=== PATIENT | male | born 1975 | race Caucasian/White ===

== ENCOUNTER → 2021-02-04 13:53 | Outpatient (CLI) | payer BC, SELFPAY ==
--- NOTE | 2021-02-04 | DI.MRI_ITS ---
Exam(s) MR LOWER EXTREMITY LT WO/W CLINICAL HISTORY: DIABETIC ULCER LT 1ST MCP,TRACTS TO BONE,?OSTEOMYELITIS. TECHNIQUE: Multiplanar multisequence MRI was performed. CONTRAST MATERIAL: IV Contrast: 20 mL of Dotarem contrast administered. COMPARISON: None. FINDINGS: There is a visible soft tissue ulcer seen at the plantar soft tissues at the level of the 1st proxima l phalanx. There is soft tissue enhancement but no abnormal enhancement within the marrow. There is no drainable collection. The adjacent tendons appear normal. There is an artifact in the soft tiss ues of the plantar aspect of the foot at the level of the 4th proximal phalanx with which may be a me tallic foreign body. IMPRESSION: Plantar soft tissue ulceration. No evidence of osteomyelitis or abscess. DATA REPOSITORY:
[2021-02-04 15:11] LABS: BUN 19 mg/dL (7-18); CREATININE 1.2 mg/dL (0.70-1.30)
[2021-02-04] MEDS: Normal Saline Flush 10 ML SYR IVP (15:53)
[2021-02-04] MEDS: Gadoterate meglumine 20 ML VIAL IVP (15:54)
== END ==
PROVIDERS: PCP Internal Medicine; Visit Provider Podiatrist
DX: E11.622 Type 2 diabetes mellitus with other skin ulcer (principal); L97.401 Non-pressure chronic ulcer of unspecified heel and midfoot limited to breakdown of skin
CPT/HCPCS: 84520; 73720; 82565

== ENCOUNTER 2021-05-12 00:59 | Outpatient (CLI) | payer BC, SELFPAY ==
[2021-05-12 11:11] LABS: Source Nasal/Nares
[2021-05-12 14:15] LABS: COVID-19 PCR Negative (Negative)
== END 2021-05-12 01:00 | disposition home or self-care (01) ==
LOC: LBO 01:00
PROVIDERS: PCP Internal Medicine; Visit Provider Podiatrist
DX: Z20.822 Contact with and (suspected) exposure to COVID-19 (principal)
CPT/HCPCS: 87635

== ENCOUNTER 2021-05-15 10:00 | Day surgery (SDC) | payer BC, SELFPAY ==
--- NOTE | 2021-05-14 20:05 | HPE_ITS ---
Date of service: 05/15/21 Time of Service: 20:05 History of Present Illness History of Present Illness Chief Complaint: Diabetic ulcer left foot, hallux limitus Narrative: 45 YO male with an ulceration under the left proximal phalageal base of over 9 months duration that has not responded to palliative care for surgical intrvention. Ze is in NAD Heads normo cephalic eyes Perlla hearing adequate Uvula is midline Heart had RRR, no gallops, rubs or murmurs noted Lung gudino are clear Abdomen is soft Peripheral pulses are palpable Diabetic ulcer noted under the left 1st MPJ region, partial thickness Diabetic neuropathy noted Plan: Ze is being brought to the OR for resection of bone/ Pryor type bunion procedure and wound debridement. Risks and complications have been discussed in detail and the potential for pain, scarring, infection, nerve injury, failure of the wound to close requiring additional procedures was discussed. All questions were answered in detail. Informed consent obtained. [facility] Medical History (Updated 05/13/21 @ 13:33 by Roman Greenberg) Cardiomyopathy F/U with Dr. Melvin 12/24/20 Diabetes mellitus Gout HTN (hypertension) Surgical History H/O adenoidectomy Hx of circumcision 05/13/21 Social History Smoking/Tobacco Use Status: Former Tobacco Use Quit Date: 06/06/02 Smoking risk assessment performed?: Yes Alcohol Intake: current Alcohol Intake frequency: a few times a week Alcohol type: beer Drug use: Current Sobriety Substance use type: does not use Additional Social history: unable to assess [facility] Allergies and Home Medications Allergies Allergy/AdvReac Type Severity Reaction Status Date / Time No Known Allergies Allergy Unverified 05/13/21 13:34 Home Medications Medication Instructions Recorded Confirmed Type enalapril maleate 1 tab PO HS 01/28/16 05/13/21 History furosemide 2 tab PO BID 01/28/16 05/13/21 History metolazone 1 tab PO DAILY 01/28/16 05/13/21 History empagliflozin [Jardiance] 10 mg PO DAILY 05/13/21 05/13/21 History metformin 500 mg PO BID 05/13/21 05/13/21 History spironolactone 25 mg PO BID 05/13/21 05/13/21 History
[2021-05-15 10:00] VITALS: BP 151/85; PULSE 85; RESP 18; TEMP 37.4; O2SAT 99
[2021-05-15] MEDS: Lactated Ringers 1,000 ML 80 ML IV (10:42)
--- NOTE | 2021-05-15 11:47 | W.ANESPRE ---
General Info Date of Service Date Performed: 05/15/21 Height: 6 ft 1 in Weight: 126.6 kg Body Mass Index (BMI): 36.8 Surgical Procedure: Operation Date: 05/15/21 12:40 Proposed Procedures Side Surgeon p Bunionectomy Pryor Type Kurtisayaz Haywood DPM Meds Allergies and Home Medications Allergies Allergy/AdvReac Type Severity Reaction Status Date / Time No Known Allergies Allergy Unverified 05/15/21 08:57 Home Medication Medication Instructions Recorded enalapril maleate 1 tab PO HS 01/28/16 furosemide 2 tab PO BID 01/28/16 metolazone 1 tab PO DAILY 01/28/16 empagliflozin [Jardiance] 10 mg PO DAILY 05/13/21 metformin 500 mg PO BID 05/13/21 spironolactone 25 mg PO BID 05/13/21 fenofibrate nanocrystallized 48 mg PO DAILY 05/15/21 magnesium 250 mg PO DAILY 05/15/21 Current Visit Medications: Current Medications Generic Name Dose Route Start Last Admin Trade Name Freq PRN Reason Stop Dose Admin Ringer's Solution 1,000 mls @ 80 mls/hr 05/15/21 06:00 05/15/21 10:42 IV 06/13/21 23:59 80 mls/hr INFUSION CARL Administration Sodium Chloride 500 mls @ 0 mls/hr 05/15/21 06:00 Saline 500ml Bag IV PRN PRN As Directed Cefazolin Sodium/Dextrose 2 gm in 50 mls @ 100 mls/hr 05/15/21 06:00 Ancef Duplex IVPB PREOP CARL IV Miscellaneous Supplies 1 each 05/15/21 06:00 Iv Access IV 06/13/21 23:59 DIRECTED CARL IV Miscellaneous Supplies 1 each 05/15/21 06:00 Iv Access IV DIRECTED CARL Povidone Iodine 0 ml 05/15/21 06:00 Povidone-Iodine Soln. 118 Ml Btl TP DIRECTED CARL Sodium Chloride 0 ml 05/15/21 06:00 Normal Saline Flush 10 Ml Syr IV 06/13/21 23:59 PRN PRN Sodium Chloride 0 ml 05/15/21 06:00 Normal Saline 10 Ml Vial IJ 06/13/21 23:59 DIRECTED PRN Sodium Chloride 0 ml 05/15/21 06:00 Normal Saline Flush 10 Ml Syr IVP PRN PRN Sterile Water 0 ml 05/15/21 06:00 Water,Injection,Sterile 10 Ml Vial IJ 06/13/21 23:59 DIRECTED PRN [facility] Medical History Medical History Cardiomyopathy F/U with Dr. Melvin 12/24/20 Diabetes mellitus Gout HTN (hypertension) Surgical History Surgical History H/O adenoidectomy Hx of circumcision 05/13/21 Tobacco Smoking/Tobacco Use Status: Former Tobacco Use Alcohol Alcohol Intake: current Alcohol intake frequency: a few times a week Alcohol type: beer Substance Use Substance use: Current Sobriety Substance use type: does not use Vital Signs and Lab Results Vital Signs Most Recent Vital Signs in EMR: Most Recent Vital Signs Temp Pulse Resp BP Pulse Ox 37.4 C 85 18 151/85 H 99 05/15/21 10:00 05/15/21 10:00 05/15/21 10:00 05/15/21 10:00 05/15/21 10:00 Point of Care Results Point of Care Results: Finger Stick Blood Glucose 145 05/15/21 10:40 Lab Results Blood Type / Crossmatch: No Data to Display Complete Blood Count: No Data to Display Complete Metabolic Panel: No Data to Display Liver Function Panel: No Data to Display Coagulation Panel: No Data to Display Cardiac Panel: No Data to Display Arterial Blood Gas: No Data to Display Venous Blood Gas: No Data to Display Pancreas Panel: No Data to Display Thyroid Panel: No Data to Display Infectious Disease: Coronavirus (COVID-19)(PCR) Negative (Negative) 05/12/21 08:36 05/12/21 Coronavirus 2019 Source Nasal/Nares 05/12/21 08:36 05/12/21 Blood Cultures: No Data to Display Toxicology Panel: No Data to Display Imaging and Studies Imaging and Studies Study information below may be from another EMR and interpreted by another provider. Please see original notes in EMR for more complete details. [place]ogram [place] [facility] [place] 1. Technically limited study. 2. The left ventricular chamber size is normal. Left ventricular wall thickness is normal. There is normal global left ventricular systolic function. The quantitative left ventricular ejection fraction by biplane Stuart's method is 61%. There are no left ventricular segmental wall motion abnormalities. Doppler assessment is consistent with normal left sided filling pressure. 3. Right ventricular chamber size, wall thickness, and systolic function are within normal limits. Pulmonary artery hypertension could not be assessed due to inadequate tricuspid regurgitation jet. 4. The left atrium is normal in size. The right atrium appears normal. 5. There is no hemodynamically significant valve disease. 6. See remainder of report for additional findings. Anesthesia Assessment and Plan Anesthesia History Personal History: No History of Anesthesia Complications Family History: No Family History of Anesthesia Complications Exercise Tolerance Exercise Tolerance: Metabolic Equivalents>4 Pertinent Negatives Pertinent Negatives: No Symptoms of GERD, No Major Pulmonary Symptoms or Complaints and No History of CVA/TIA Cardiac & Pulmonary Exam Cardiac Exam: Normal S1/S2 Heart Sounds Pulmonary Exam: Clear Bilateral Breath Sounds Implantable Cardiac Device Does patient have a Pacemaker or an ICD?: No Airway Exam Known Difficult Airway: No Mallampati Class: 2 Mouth Opening: Normal (> 3cm) Thyromental Distance: Greater than 3 cm Neck Range of Motion: Full ROM Neck Circumference: Normal Teeth Condition: Generalized Poor Dentition and Loose or Chipped Tooth Numberin. Per patient 2. Per patient 3. Per patient ASA Classification ASA Score: ASA 2 Emergency Case?: No NPO Status NPO Status: NPO Clears >2 hours, Solids >8 hours Anesthesia Plan Resuscitation Status: Full Code Anesthesia Technique: General Anesthesia Airway Planned: Natural Airway Monitors Used: Standard Monitors
[2021-05-15 14:51] VITALS: BMI 36.8
[2021-05-15] MEDS: ceFAZolin 2 GM/50 ML BAG IVPB (14:54)
--- NOTE | 2021-05-15 15:32 | BONE_PTH ---
PATIENT: Ze Sauceda JR LOC: [facility] U#:[id number] AGE/SX: 45/M ROOM: RE05/15/[address]: Kurtis Haywood : 1975 BED: DIS: 05/15/2021 SPEC #: [id number] RECD: 05/15/21 18:07 STATUS: [place] REAlex #: [id number] JENNIFER: 05/15/21 15:[address]: Kurtis Haywood DEPT: Surgical Specimen RECD BY: Bethany Lagunas ENTERED: 05/15/21 18:09 SP TYPE: Bone OTHR DR: Payam Mejia Tissues: 1 - BONE BX/CURRETTE NOT PATH FRACTURE 2 - SKIN BIOPSY(SHAVE/PUNCH) Procedures: GROSS AND MICRO LEVEL 3 SKIN LEVEL 4 DECALCIFICATION Comments: [id number]
[2021-05-15] MEDS: Lidocaine 1% Multi-Dose 50 ML VIAL (15:40)
[2021-05-15] MEDS: Bupivacaine 0.5% Pres-Free 30 ML VIAL (15:40)
[2021-05-15 16:00] VITALS: BP 138/86; PULSE 84; RESP 16; TEMP 36.9; O2SAT 97
--- NOTE | 2021-05-15 16:01 | W.ANESPOSTOP ---
Postoperative Evaluation Date, Time and Location Date Performed: 05/15/21 Time Performed: 16:01 Patient Location: Day Surgery Unit Vital Signs Most Recent Imported Vital Signs: Most Recent Vital Signs Temp Pulse Resp BP Pulse Ox 37.4 C 85 18 151/85 H 99 05/15/21 10:00 05/15/21 10:00 05/15/21 10:00 05/15/21 10:00 05/15/21 10:00 Most Recent Manually Entered Vital Signs: Adult Blood Pressure: 140/86 Heart Rate: 80 Respirations: 16 Oxygen Saturation (%): 96 Temperature (C): 36.6 C Pain Score (0-10 Scale): 0 Assessment Mental Status: Awake (Alert & Oriented to Patient Baseline) Airway and Respiratory Function: Patent airway with normal (patient baseline) respiratory exam Cardiovascular Function: Hemodynamically Stable Hydration Status: Adequately Hydrated Nausea & Vomiting: No Nausea or Vomiting Pain: Pt. Denies Any Pain Peripheral Nerve Block: Patient did not receive a nerve block
[2021-05-15 16:02] VITALS: BP 140/86; PULSE 80; RESP 16; TEMPC 36.6; O2SAT 96
--- NOTE | 2021-05-15 16:02 | W.PM.DSUDISC ---
Discharge Plan Disposition Patient Disposition: HOME Condition: Good Discharge Details Reason For Visit: correction ahllux limitus/debridement ulcer Attending Provider: Kurtis Haywood Primary Care Provider: Payam Mejia Home Meds and New Rx's Prescriptions: New oxycodone-acetaminophen 5-325 mg tablet 1 tab PO Q6H PRN (Reason: pain) Qty: 9 RF: 0 ibuprofen 600 mg tablet 600 mg PO Q6H PRN (Reason: pain and inflammation) Qty: 60 RF: 0 Continued enalapril maleate 20 MG tablet 1 tab PO HS RF: 0 metolazone 5 MG tablet 1 tab PO DAILY RF: 0 furosemide 20 MG tablet 2 tab PO BID RF: 0 metformin 500 mg Tablet 500 mg PO BID RF: 0 spironolactone 25 mg Tablet 25 mg PO BID RF: 0 Jardiance 10 mg Tablet 10 mg PO DAILY RF: 0 magnesium 250 mg Tablet 250 mg PO DAILY RF: 0 fenofibrate nanocrystallized 48 mg Tablet 48 mg PO DAILY RF: 0 Discharge Instructions Activity:: Elevate Remove Dressings/Wound Care:: Do Not Remove Shower/Bathe:: Cover Diet:: Carb Counting Discharge Orders Discharge Orders: Discharge Order (Routine); Ordered 05/15/21 Ordered By: Kurtis Haywood DS: Diagnosis Discharge Diagnosis (1) Diabetic ulcer of foot associated with diabetes mellitus due to underlying condition, limited to breakdown of skin: Status: Acute (2) Hallux limitus of left foot: Status: Acute
--- NOTE | 2021-05-15 16:06 | ROE_ITS ---
Date of service: 05/15/21 Time of Service: 16:06 Operative Note Operative Note DATE OF PROCEDURE: 05/15/21 PRE-OP DIAGNOSIS: Hallux limitus left Diabetic ulcer sub 1st MPJ left foot POST-OP DIAGNOSIS: same PROCEDURE: Pryor bunionectony debridement ulcer with 3mm punch biopsy ANESTHESIA TYPE: General:No Airway Refer to Anesthesia Record ESTIMATED BLOOD LOSS: 1 PATHOLOGY: other TOURNIQUET TIME: 31 COMPLICATIONS: None Patient was transported to: same day Patient's condition: stable Indications: 45-year-old male with multiple comorbidities including diabetes with neuropathy for correction hallux limitus deformity with ulceration under the first metatarsal phalangeal joint or to the left foot. Ze understands risk and complications of surgery to include pain, scarring, infection, wound dehiscence, failure to thrive, nerve injury, persistent plantar ulceration with the potential for revisional surgeries and/or loss of digit. All questions have been answered in detail. Informed consents been obtained. No promises made final outcome of surgery. Procedure Description: Ze was brought to the operative suite placed in supine position with a left foot prepped and draped in usual sterile podiatric fashion. Timeout was performed for safe surgery. Anesthesia being obtained the left f oot was exsanguinated well-padded ankle tourniquet inflated 250 mmHg. Attention was directed to the dorsal aspect of the first MPJ where a 4 cm incision was made medial to the EHL tendon. The incision was deepened in controlled depth fashion with hemostasis acquired with electrocautery. Dissection was carried down to the base of the proximal phalanx. Flexion contracture was appreciated at the MPJ level. Exostosis formations are noted surrounding the dorsal aspect of the joint. Once the periosteum was stripped away from the base of the proximal phalanx approximately 1 cm the base was resected with power instrumentation. The articular surface of the bony segments was significantly deteriorated with generally partial and some full-thickness erosions noted. There was no active sign of infection. No purulence noted. All rough and bony edges were then rasped smooth. The wound copiously irrigated. The hallux was stabilized with a 0.062 K wire in retrograde fashion. The periosteum and capsule layer was repaired with simple interrupted suture of 3-0 Vicryl. The subcutaneous layer was repaired with 4-0 Vicryl. Skin was coapted with with simple interrupted suture of 4-0 nylon. Attention was now directed to the plantar ulceration which was sharply debrided with a #10 scalpel removing the hypertrophic margin and slime layer. Bleeding although marginal due to tourniquet placement was noted around the margin. Utilizing a skin punch biopsy was obtained and sent to pathology. The wounds were subsequently dressed with Xeroform dressings, Betadine ointment to the open wound, fluffs, Kerlix, stockinette and Dharmesh wrap. Tourniquet was released with vascularity returning immediately to all toes. Sharp and sponge counts were correct. Postoperative fracture shoe dispensed.
[2021-05-15 16:30] VITALS: BP 130/82; PULSE 77; RESP 16; TEMP 36.2; O2SAT 99
== END 2021-05-15 16:45 | disposition home or self-care (01) ==
PROVIDERS: PCP Internal Medicine; Visit Provider Podiatrist
PROC: (CPT 28292; principal; 2021-05-15 12:30)
DX: E11.621 Type 2 diabetes mellitus with foot ulcer (principal); L97.521 Non-pressure chronic ulcer of other part of left foot limited to breakdown of skin; M20.5X2 Other deformities of toe(s) (acquired), left foot
CPT/HCPCS: 28292; 11104; 88304; 88305; 88311; J0690; J1885; J2250; J2405

== ENCOUNTER 2021-07-11 17:44 | Inpatient (IN) | payer BC, SELFPAY ==
[2021-07-11 17:52] VITALS: BP 157/86; PULSE 92; RESP 16; TEMP 36.5; O2SAT 97
--- NOTE | 2021-07-11 18:50 | NUR.NOTE ---
Dressed wound lightly with non adherent dressing and kerlix per provider order. CATARINA
--- NOTE | 2021-07-11 19:00 | DI.CT_ITS ---
Exam(s) CT LOWER EXTREMITY LT WO EXAM: CT LOWER EXTREMITY LT WO CLINICAL HISTORY: foot infection. TECHNIQUE: Imaging Protocol: Axial computed tomography images with coronal and sagittal reformatted images were created and reviewed. CONTRAST MATERIAL: None COMPARISON: MR MR LOWER EXTREMITY LT WO/W from 02/04/2021 FINDINGS: There has been interval resection of the proximal aspect of the proximal phalanx of the great toe. N ew bone edge at this level appear sharp. Also no evidence of bone destruction in the adjacent head o f the great toe metatarsal nor in the distal phalanx of the great toe. There is, however, significan t soft tissue swelling around the great toe and 1st metatarsophalangeal joint. No gas in the soft ti ssues seen. No radiopaque foreign body. There is a degenerative subarticular cyst in the lateral as pect the head of the great toe metatarsal. Lisfranc joint appears intact. Second metatarsal and phalanges the 2nd of the adjacent 2nd toe appea r intact as are the other metatarsals and phalanges of the other toes. Incidentally noted is a scler otic density consistent with a benign bone island in the proximal half of the middle cuneiform bone. IMPRESSION: Prominent soft tissue swelling around the great toe. Also interval resection of the proximal aspect of the proximal phalanx of the great toe. No obvious CT evidence of osteomyelitis. However, if oste omyelitis is a significant clinical consideration then MRI of this region can be performed. If the p atient cannot receive IV contrast for MRI study it is still possible to obtain sensitive and specific results on noninfused MRI using non fat sat T1 sequences and STIR sequences. RADIATION DOSE DELIVERED: 199.36mGy.cm Total DLP DATA REPOSITORY: All CT scans at this facility are submitted to the National Radiology Data Registry (NRDR) Dose Index Registry (DIR) with the [employer] ([employer]). RADIATION OPTIMIZATION: All CT scans at this facility use at least one of these dose optimization te chniques: automated exposure control; mA and/or kV adjustment per patient size (includes targeted exa ms where dose is matched to clinical indication); or iterative reconstruction.
--- NOTE | 2021-07-11 19:16 | ED.GENADUL_ITS ---
Discharge Plan Disposition Patient Disposition: [facility] INPATIENT Condition: Fair Discharge Details Clinical Impression: Diabetic foot infection Admit Date/Time: 07/11/21 21:02 Admit Provider: Esmer Castañeda Attending Provider: Esmer Castañeda Primary Care Provider: Payam Mejia ED Provider: Kam Baca Discharge Data Discharge Date/Time-TO BE ENTERED AT DEPARTURE: 07/11/21 22:09 Medical Decision Making Patient presenting to the emergency department for chief complaint of left great toe infection. Patient reports procedure done by Dr. Haywood learning operations specialist early May and had been healing well. 5 days ago while patient was in [place] he started noticing signs of infection and had drainage performed but they wanted to do further surgery which she refused and requested to come back to Dr. Haywood. Patient reports since the procedure that he has had some improvement but still has marked significant swelling and drainage from right great toe. Review of previous records shows that patient had bunionectomy with appropriate healing on 05/15/2021. Patient was not given imaging disc or medical records when he left [place] so plan to repeat labs and CT image for concern of possible osteomyelitis and also perform blood cultures and wound culture. Did speak with Dr. Haywood who recommended patient continue on Levaquin IV and start vancomycin. He states that he will be consulting on patient and plan to take patient to the OR tomorrow. Reviewed labs which are consistent with patient's complaint but not emergent. CT is does not show any obvious osteomyelitis or abscess but does reveal significant amount of swelling. Dr. Castañeda was consulted for admission which she was agreeable to manage patient's medical needs pending surgical procedure by podiatry. Patient is also in agreement with plan of care. Medical Records Medical records reviewed: Yes I reviewed the patient's medical records. Medical records narrative: Reviewed patient operative report from May for podiatry procedure. Lab Data Lab results reviewed: Yes I reviewed the patient's lab results. Labs: 07/11/21 20:55 Blood Blood Culture - Pending 07/11/21 19:35 Blood Blood Culture - Pending Laboratory Tests Range/Units 07/11/21 07/11/21 07/11/21 19:25 19:35 19:35 WBC (4.4-10.8) 10^3/uL RBC (4.36-5.78) 10^6/uL Hgb (13.5-17.5) g/dL Hct (40.0-50.0) % MCV (80-95) fL MCH (27.0-33.0) pg MCHC (32.0-36.0) % RDW (11.8-14.1) % Plt Count (130-400) 10^3/uL MPV (8.0-11.0) fL Immature Gran % Neutrophils % Band Neutrophils % Lymphocytes % Atypical Lymphs % Monocytes % Eosinophils % Basophils % Metamyelocytes % Nucleated RBC % % Absolute Neutrophils (1.2-6.7) 10^3/uL Absolute Lymphocytes (1.2-3.4) 10^3/uL Absolute Monocytes (0.1-0.8) 10^3/uL Absolute Eosinophils (0.0-0.7) 10^3/uL Absolute Basophils (0.0-0.2) 10^3/uL RBC Morphology ESR (0-15) mm/hr 38 H Sodium (136-145) mmol/L Potassium (3.5-5.1) mmol/L Chloride (98-107) mmol/L Carbon Dioxide (21.0-32.0) mmol/L Anion Gap (3-11) mmol/L BUN (7-18) mg/dL Creatinine (0.70-1.30) mg/dL Estimated GFR/1.73 m2 (mL/min/1.73m2) Glucose (74-106) mg/dL Calcium (8.5-10.1) mg/dL Magnesium (1.8-2.4) mg/dL Total Bilirubin (0.2-1.0) mg/dL AST (15-37) U/L ALT (16-63) U/L Alkaline Phosphatase (46-116) U/L C-Reactive Protein (0.0-0.3) mg/dL 6.08 H Total Protein (6.4-8.2) g/dL Albumin (3.4-5.0) g/dL COVID-19 Source Nasal/Nares Range/Units 07/11/21 07/11/21 19:35 19:35 WBC (4.4-10.8) 10^3/uL 15.27 H RBC (4.36-5.78) 10^6/uL 5.38 Hgb (13.5-17.5) g/dL 15.1 Hct (40.0-50.0) % 45.9 MCV (80-95) fL 85.3 MCH (27.0-33.0) pg 28.1 MCHC (32.0-36.0) % 32.9 RDW (11.8-14.1) % 12.7 Plt Count (130-400) 10^3/uL 344 MPV (8.0-11.0) fL 8.5 Immature Gran % See Differential Neutrophils % 72.0 Band Neutrophils % 1 Lymphocytes % 10.0 Atypical Lymphs % 1 Monocytes % 13.0 Eosinophils % 1.0 Basophils % 0.0 Metamyelocytes % 2 Nucleated RBC % % 0 Absolute Neutrophils (1.2-6.7) 10^3/uL 11.15 H Absolute Lymphocytes (1.2-3.4) 10^3/uL 1.68 Absolute Monocytes (0.1-0.8) 10^3/uL 1.99 H Absolute Eosinophils (0.0-0.7) 10^3/uL 0.15 Absolute Basophils (0.0-0.2) 10^3/uL 0.00 RBC Morphology Normal ESR (0-15) mm/hr Sodium (136-145) mmol/L 133 L Potassium (3.5-5.1) mmol/L 4.0 Chloride (98-107) mmol/L 95 L Carbon Dioxide (21.0-32.0) mmol/L 22.5 Anion Gap (3-11) mmol/L 15.5 H BUN (7-18) mg/dL 19 H Creatinine (0.70-1.30) mg/dL 1.0 Estimated GFR/1.73 m2 (mL/min/1.73m2) >= 60.00 Glucose (74-106) mg/dL 132 H Calcium (8.5-10.1) mg/dL 9.0 Magnesium (1.8-2.4) mg/dL 1.9 Total Bilirubin (0.2-1.0) mg/dL 0.5 AST (15-37) U/L 21 ALT (16-63) U/L 33 Alkaline Phosphatase (46-116) U/L 71 C-Reactive Protein (0.0-0.3) mg/dL Total Protein (6.4-8.2) g/dL 9.0 H Albumin (3.4-5.0) g/dL 3.3 L COVID-19 Source HPI General Mode of arrival: ambulatory . Date/Time Provider Initiated Documentation: 07/11/21 17:53 . Limitations to Documentation: no limitations . Information obtained by: patient . History of Present Illness 45 year old M presents to the emergency department with the chief complaint of left foot infection, Quality is described as other (Denies pain due to neuropathy), and is localized to the left and lower extremity (base of great toe). Patient started experiencing this day(s) (5) and it has been constant. No relieving factors improve symptom(s), No exacerbating factors reported . Patient did receive the following treatments prior to arrival, other (Prescribed Bactrim and Levaquin) Related Data Home Medications Medication Instructions Recorded Confirmed enalapril maleate 1 tab PO HS 01/28/16 07/11/21 Jardiance 10 mg PO DAILY 05/13/21 07/11/21 metformin 1,000 mg PO BID 05/13/21 07/11/21 spironolactone 25 mg PO BID 05/13/21 07/11/21 fenofibrate nanocrystallized 48 mg PO DAILY 05/15/21 07/11/21 ibuprofen 600 mg PO Q6H PRN #60 tab 05/15/21 07/11/21 magnesium 250 mg PO DAILY 05/15/21 07/11/21 acetaminophen 1,000 mg PO Q6H PRN 07/11/21 07/11/21 allopurinol 300 mg PO DAILY 07/11/21 07/11/21 gabapentin 300 mg PO QHS 07/11/21 07/11/21 levofloxacin 750 mg PO DAILY 07/11/21 07/11/21 sulfamethoxazole-trimethoprim 1 tab PO BID 07/11/21 07/11/21 [Bactrim DS] Previous Rx's Medication Instructions Recorded ibuprofen 600 mg PO Q6H PRN #60 tab 05/15/21 Allergies Allergy/AdvReac Type Severity Reaction Status Date / Time No Known Allergies Allergy Unverified 07/11/21 18:01 General Stated Complaint: Cellulitis FREDRICK: 3 Review of Systems Constitutional Constitutional: Denies body ache(s), Denies chills and Reports fever(s) (5 days ago but now resolved) Cardiovascular Cardiovascular: Denies chest pain and Denies dyspnea Respiratory Respiratory: Denies dyspnea Gastrointestinal Gastrointestinal: Denies abdominal pain, Reports nausea (Secondary to oral antibiotics) and Denies vomiting Musculoskeletal Musculoskeletal: Reports as per HPI Integumentary/Breasts Skin/Breast: Reports erythema and Denies rash Neurologic Neurologic: Denies confusion and Reports sensory deficit (Baseline lower extremity neuropathy) Psychiatric Psychiatric: Denies confusion PFSH All Active Problems GERD (gastroesophageal reflux disease) (Acute) Discharge planning issues (Acute) DVT prophylaxis (Acute) Dehydration (Acute) Diabetic foot infection (Acute) Hallux limitus of left foot (Acute) Diabetic ulcer of foot associated with diabetes mellitus due to underlying condition, limited to breakdown of skin (Acute) Medical History Cardiomyopathy LVEF 61% by echo in 07/2018, up from 23% in 10/2015. (Dr. Melvin) Diabetes mellitus Gout HTN (hypertension) Obesity (BMI 30-39.9) Surgical History H/O adenoidectomy History of bunionectomy of left great toe Hx of circumcision 05/13/21 Family History Mother Hypertension Social History Smoking/Tobacco Use Status: Former Tobacco Use Quit Date: 06/06/02 Smoking risk assessment performed?: Yes Alcohol Intake: current Alcohol Intake frequency: a few times a month Alcohol type: beer Drug use: Never Substance use type: does not use Do you feel safe at home: Yes Do you feel safe in your relationship?: Yes Exam Const General: cooperative, no acute distress and not ill appearing Orientation: alert, awake and oriented x3 HENMT Mouth: moist mucous membranes Resp Effort & Inspection: normal respiratory effort, able to speak in complete sentences and no respiratory distress Cardio Rate: regular rate Rhythm: regular rhythm Pulses: posterior tibial pulses present and dorsalis pedis present Skin General skin exam: no rashes or lesions noted Neuro General: patient alert, patient awake, patient oriented x3, moves all extremities and no focal motor deficits Extrem Left lower extremity: foot Details: edema Location: of the great toe and other (Erythema and drainage along with blistering between great and second toe) Course Vital Signs Vital signs: Vital Signs Temperature 36.5 C 07/11/21 17:52 Pulse 92 H 07/11/21 17:52 Respiratory Rate 16 07/11/21 17:52 Blood Pressure 157/86 H 07/11/21 17:52 Pulse Oximetry 97 07/11/21 17:52 Temperature 36.5 C 07/11/21 17:52 Temperature Source Oral 07/11/21 17:52 Pulse 92 H 07/11/21 17:52 Respiratory Rate 16 07/11/21 17:52 Respiratory Effort Non-Labored 07/11/21 17:59 Blood Pressure 157/86 H 07/11/21 17:52 Blood Pressure Position Supine 07/11/21 17:52 Pulse Oximetry 97 07/11/21 17:52 Oxygen Delivery Method Room Air 07/11/21 17:52 Oxygen Flow Rate 0 07/11/21 17:52 Pain Level 0 07/11/21 17:52 Lab/Test Results Lab/Test Results: 07/11/21 18:51 Blood Blood Culture - Pending 07/11/21 18:51 Blood Blood Culture - Pending PAWSS Have you Been Recently Intoxicated or Drunk Within the Last 30 days?: No Have you Ever Experienced Previous Episodes of Alcohol Withdrawal?: No Have you ever Experienced Withdrawal Seizures?: No Have you ever Experienced Delirium Tremens(DT)s?: No Have you ever undergone Alcohol Rehabilitation Treatment (i.e, inpt ot outpatient treatment programs)?: No Have you ever Experienced Blackouts?: No Have you ever Combined Alcohol with other Downers within the last 90 days?: No Have you ever Combined Alcohol with any other Substance of Abuse during the last 90 days?: No Positive Blood Alcohol level on Presentation? [PCS.BAL]: No Evidence of Increased Autonomic Activity (i.e. HR>120, tremor, sweating, agitation, nausea)?: No Result: 0
[2021-07-11 19:41] LABS: Source Nasal/Nares
[2021-07-11 19:48] LABS: Abs Immature Grans 0.64 10^3/uL (0.0-0.06); HCT 45.9 % (40.0-50.0); HGB 15.1 g/dL (13.5-17.5); MCH 28.1 pg (27.0-33.0); MCHC 32.9 % (32.0-36.0); MCV 85.3 fL (80-95); MPV 8.5 fL (8.0-11.0); Nucleated RBC 0 %; Platelet Count 344 10^3/uL (130-400); RBC 5.38 10^6/uL (4.36-5.78); RDW 12.7 % (11.8-14.1); RDW-SD 39.5 fL; WBC 15.27 10^3/uL (4.4-10.8)
[2021-07-11 19:57] LABS: ESR 38 mm/hr (0-15)
[2021-07-11 20:05] LABS: ALT 33 U/L (16-63); AST 21 U/L (15-37); Albumin 3.3 g/dL (3.4-5.0); Alkaline Phosphatase 71 U/L (46-116); Anion Gap 15.5 mmol/L (3-11); BUN 19 mg/dL (7-18); Bilirubin, Total 0.5 mg/dL (0.2-1.0); CO2 22.5 mmol/L (21.0-32.0); Chloride 95 mmol/L (98-107); Glucose 132 mg/dL (74-106); Magnesium 1.9 mg/dL (1.8-2.4); Sodium 133 mmol/L (136-145)
[2021-07-11 20:09] LABS: Absolute Eosinophil Count 0.15 10^3/uL (0.0-0.7); Absolute Lymphocyte Count 1.68 10^3/uL (1.2-3.4); Absolute Monocyte Count 1.99 10^3/uL (0.1-0.8); Absolute Neutrophil Count 11.15 10^3/uL (1.2-6.7); Atypical Lymphocytes % 1; Bands % 1
[2021-07-11 20:10] LABS: Diff Comment Manual Differential; Metamyelocytes % 2; RBC Morphology Normal
[2021-07-11 20:12] LABS: C-Reactive Protein 6.08 mg/dL (0.0-0.3)
--- NOTE | 2021-07-11 20:27 | DI.VRAD_ITS ---
PROCEDURE INFORMATION: Exam: CT Left Lower Extremity Without Contrast, Foot Exam date and time: 07/11/2021 7:14 PM Age: 45 years old Clinical indication: Foot; Left; Patient HX: Infection, cellulitis TECHNIQUE: Imaging protocol: CT of the Left lower extremity without contrast was performed. Exam focused on the foot. COMPARISON: MR LOWER EXTREMITY LT WO/W 02/04/2021 3:02 PM FINDINGS: Bones/joints: Since the previous exam, an osteotomy has been performed at the great toe 1st proximal phalanx, proximal aspect adjacent to the metatarsophalangeal joint. There is no cortical erosion or fracture at the osteotomy site. Trabeculation in the marrow cavity is unremarkable, however evaluation is limited. There is no evidence of fracture or bony erosion elsewhere. Hypertrophic changes are noted in the sesamoid bones associated with the 1st metatarsal. The tarsometatarsal alignment appears normal. Soft tissues: Extensive soft tissue swelling is present in the forefoot, greatest around the great toe and the 1st metatarsophalangeal joint. There is no soft tissue air observed. There are no internal foreign bodies observed. IMPRESSION: 1. Marked soft tissue swelling in the great toe and medial forefoot. 2. No definite osteomyelitis. Early infection at the osteotomy site is difficult to exclude on CT. Dictated and Authenticated by: Vaibhav Booth MD. Ordering:MELISSA Humphrey MD
[2021-07-11] MEDS: levoFLOXacin 750 MG/150 ML BAG 100 MG IVPB (21:04)
--- NOTE | 2021-07-11 21:08 | HPE_ITS ---
Date of service: 07/11/21 Time of Service: 21:08 Assessment and Plan Assessment and plan (1) Diabetic foot infection: Status: Acute Assessment and plan: Agree with empiric vancomycin/levofloxacin. No evidence of abscess or OM L foot by CT - however, may need MRI - will defer to podiatry. NPO after midnight for OR with Dr Haywood tomorrow. (2) Diabetes mellitus: Assessment and plan: Cover with SSI. Hold metformin, jardiance. (3) HTN (hypertension): Assessment and plan: Continue spironoloactone and enalapril (4) Dehydration: Status: Acute Assessment and plan: IVF x 1 L. Control nausea. (5) GERD (gastroesophageal reflux disease): Status: Acute Assessment and plan: Start PPI. 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 ED today, having just returned from a trip to [place], where about 6 days ago he had noted redness and swelling to the L great toe. Additionally, the patient states that he felt generally unwell, with subjective fevers, nausea, feeling of gastric reflux, and a small amount of diarrhea. He was evaluated for this in [place] ([facility]) and had an I&D and was started on bactrim and levofloxacin, electing to return to [place] to undergo any further treatment here rather than getting admitted in [place]. The patient states that he did not go to the beach or into water. He thinks that the toe got infected via cracked skin on the sole in his hotel shower. His CT of the left foot done at our facility shows marked soft tissue swelling in the great toe and medial forefoot without definite osteomyelitis. Dr Haywood recommended starting the patient on vancomycin/levofloxacin with an admission to the hospitalist service with plans for OR tomorrow. The patient is double vaccinated against COVID-19 and denies any confirmed exposures to COVID-19. He denies runny nose, sore throat, chest pain, shortness of breath, cough. He traveled to [place] by plane while masked. Review of Systems All systems reviewed & are unremarkable except as noted in HPI and below PFSH All Active Problems GERD (gastroesophageal reflux disease) (Acute) Discharge planning issues (Acute) DVT prophylaxis (Acute) Dehydration (Acute) Diabetic foot infection (Acute) Hallux limitus of left foot (Acute) Diabetic ulcer of foot associated with diabetes mellitus due to underlying condition, limited to breakdown of skin (Acute) Medical History Cardiomyopathy LVEF 61% by echo in 07/2018, up from 23% in 10/2015. (Dr. Melvin) Diabetes mellitus Gout HTN (hypertension) Obesity (BMI 30-39.9) Surgical History H/O adenoidectomy History of bunionectomy of left great toe Hx of circumcision 05/13/21 Family History Mother Hypertension Social History Smoking/Tobacco Use Status: Former Tobacco Use Quit Date: 06/06/02 Smoking risk assessment performed?: Yes Alcohol Intake: current Alcohol Intake frequency: a few times a month Alcohol type: beer Drug use: Never Substance use type: does not use Do you feel safe at home: Yes Do you feel safe in your relationship?: Yes Meds Allergies and Home Medications Allergies Allergy/AdvReac Type Severity Reaction Status Date / Time No Known Allergies Allergy Unverified 07/11/21 18:01 Home Medications Medication Instructions Recorded Confirmed Type enalapril maleate 1 tab PO HS 01/28/16 07/11/21 History Jardiance 10 mg PO DAILY 05/13/21 07/11/21 History metformin 1,000 mg PO BID 05/13/21 07/11/21 History spironolactone 25 mg PO BID 05/13/21 07/11/21 History fenofibrate nanocrystallized 48 mg PO DAILY 05/15/21 07/11/21 History ibuprofen 600 mg PO Q6H PRN #60 tab 05/15/21 07/11/21 Rx magnesium 250 mg PO DAILY 05/15/21 07/11/21 History acetaminophen 1,000 mg PO Q6H PRN 07/11/21 07/11/21 History allopurinol 300 mg PO DAILY 07/11/21 07/11/21 History gabapentin 300 mg PO QHS 07/11/21 07/11/21 History levofloxacin 750 mg PO DAILY 07/11/21 07/11/21 History sulfamethoxazole-trimethoprim 1 tab PO BID 07/11/21 07/11/21 History [Bactrim DS] Exam Narrative Exam Narrative: General: Pleasant obese male who is attempting to belch while I am in the room, but does not appear toxic/uncomfortable, A&Ox3 Neurological: A&Ox3, numbness of B feet; no other focal deficits Psychiatric: Appropriate speech pattern/content Skin: L ankle and foot are dressed - c/d/i; Great toe is visibly swollen, red, with blistering circumferentially around it HEENT: Atraumatic, normocephalic, EOMI, MMM, clear oropharynx, no submandibular or cervical lymphadenopathy, no goiter or JVD Cardiovascular: RRR, no m/r/g Lungs: CTAB Gastrointestinal: soft, nontener, nondistended Genitourinary: deferred Extremities: L ankle/foot dressed - c/d/i; R foot without any evidence of infection/ulcers. +1 pedal pulse. Results Imaging Additional studies: CT LLE: 1. Marked soft tissue swelling in the great toe and medial forefoot. 2. No definite osteomyelitis. Early infection at the osteotomy site is difficult to exclude on CT. Labs Result diagrams: 07/11/21 19:35 07/11/21 19:35 Labs: Laboratory Results - last 24 hr 07/11/21 07/11/21 07/11/21 19:25 19:35 19:35 WBC RBC Hgb Hct MCV MCH MCHC RDW Plt Count MPV Immature Gran % Neutrophils % Band Neutrophils % Lymphocytes % Atypical Lymphs % Monocytes % Eosinophils % Basophils % Metamyelocytes % Nucleated RBC % Absolute Neutrophils Absolute Lymphocytes Absolute Monocytes Absolute Eosinophils Absolute Basophils RBC Morphology ESR 38 H Sodium Potassium Chloride Carbon Dioxide Anion Gap BUN Creatinine Estimated GFR/1.73 m2 Glucose Calcium Magnesium Total Bilirubin AST ALT Alkaline Phosphatase C-Reactive Protein 6.08 H Total Protein Albumin COVID-19 Source Nasal/Nares 07/11/21 07/11/21 19:35 19:35 WBC 15.27 H RBC 5.38 Hgb 15.1 Hct 45.9 MCV 85.3 MCH 28.1 MCHC 32.9 RDW 12.7 Plt Count 344 MPV 8.5 Immature Gran % See Differential Neutrophils % 72.0 Band Neutrophils % 1 Lymphocytes % 10.0 Atypical Lymphs % 1 Monocytes % 13.0 Eosinophils % 1.0 Basophils % 0.0 Metamyelocytes % 2 Nucleated RBC % 0 Absolute Neutrophils 11.15 H Absolute Lymphocytes 1.68 Absolute Monocytes 1.99 H Absolute Eosinophils 0.15 Absolute Basophils 0.00 RBC Morphology Normal ESR Sodium 133 L Potassium 4.0 Chloride 95 L Carbon Dioxide 22.5 Anion Gap 15.5 H BUN 19 H Creatinine 1.0 Estimated GFR/1.73 m2 >= 60.00 Glucose 132 H Calcium 9.0 Magnesium 1.9 Total Bilirubin 0.5 AST 21 ALT 33 Alkaline Phosphatase 71 C-Reactive Protein Total Protein 9.0 H Albumin 3.3 L COVID-19 Source Last Vital Signs Temp 36.5 C 07/11/21 17:52 Pulse 92 H 07/11/21 17:52 Resp 16 07/11/21 17:52 BP 157/86 H 07/11/21 17:52 Pulse Ox 97 07/11/21 17:52 PAWSS Have you Been Recently Intoxicated or Drunk Within the Last 30 days?: No Have you Ever Experienced Previous Episodes of Alcohol Withdrawal?: No Have you ever Experienced Withdrawal Seizures?: No Have you ever Experienced Delirium Tremens(DT)s?: No Have you ever undergone Alcohol Rehabilitation Treatment (i.e, inpt ot outpatient treatment programs)?: No Have you ever Experienced Blackouts?: No Have you ever Combined Alcohol with other Downers within the last 90 days?: No Have you ever Combined Alcohol with any other Substance of Abuse during the last 90 days?: No Positive Blood Alcohol level on Presentation? [PCS.BAL]: No Evidence of Increased Autonomic Activity (i.e. HR>120, tremor, sweating, agitation, nausea)?: No Result: 0
[2021-07-11 21:11] VITALS: BP 161/93; PULSE 101; RESP 18; O2SAT 99
[2021-07-11 22:06] VITALS: BP 134/69; PULSE 97; RESP 20; O2SAT 99
[2021-07-11 22:25] VITALS: BP 154/87; PULSE 98; RESP 18; TEMP 37.6; O2SAT 96
[2021-07-11] MEDS: Mylanta Suspension 30 ML CUP PO (23:50)
[2021-07-11] MEDS: VANCOMYCIN 2,000 MG in Normal Saline 500 ML 250 MG IVPB (23:51)
[2021-07-11] MEDS: Pantoprazole 40 MG VIAL IVP (23:51)
[2021-07-11] MEDS: Normal Saline Flush 10 ML SYR IVP (23:51)
[2021-07-11] MEDS: Normal Saline 1,000 ML 150 ML IV (23:52)
[2021-07-12] VITALS (7 sets, daily range): BP systolic 137–177; BP diastolic 80–99; PULSE 77–98; RESP 17–18; TEMP 36.5–37.8; O2SAT 91–98; BMI 36.3
[2021-07-12] MEDS: Insulin Aspart 300 UNITS/3 ML PEN SC ×4 (00:27→22:03)
[2021-07-12] MEDS: Gabapentin 300 MG CAP PO ×2 (00:27→22:04)
[2021-07-12 06:11] LABS: COVID-19 PCR Negative (Negative)
[2021-07-12 06:31] LABS: Abs Immature Grans 0.63 10^3/uL (0.0-0.06); Absolute Basophil Count 0.07 10^3/uL (0.0-0.2); Absolute Eosinophil Count 0.05 10^3/uL (0.0-0.7); Absolute Lymphocyte Count 1.32 10^3/uL (1.2-3.4); Absolute Monocyte Count 1.18 10^3/uL (0.1-0.8); Absolute Neutrophil Count 8.74 10^3/uL (1.2-6.7); Basophils % 0.6; Eosinophils % 0.4; HCT 39.8 % (40.0-50.0); HGB 13.2 g/dL (13.5-17.5); Immature Grans % 5.3; MCH 27.6 pg (27.0-33.0); MCHC 33.2 % (32.0-36.0); MCV 83.1 fL (80-95); MPV 8.3 fL (8.0-11.0); Monocytes % 9.8; Neutrophils % 72.9; Nucleated RBC 0 %; Platelet Count 282 10^3/uL (130-400); RBC 4.79 10^6/uL (4.36-5.78); RDW 12.7 % (11.8-14.1); RDW-SD 38.5 fL; WBC 11.99 10^3/uL (4.4-10.8)
[2021-07-12 06:42] LABS: INR 1.1 (0.9-1.1); Prothrombin Time 10.8 sec (9.3-11.0)
[2021-07-12 06:43] LABS: Anion Gap 15.6 mmol/L (3-11); BUN 19 mg/dL (7-18); C-Reactive Protein 4.18 mg/dL (0.0-0.3); CO2 20.4 mmol/L (21.0-32.0); CREATININE 0.9 mg/dL (0.70-1.30); Calcium 8.5 mg/dL (8.5-10.1); Chloride 99 mmol/L (98-107); Glucose 126 mg/dL (74-106); Magnesium 1.8 mg/dL (1.8-2.4); Potassium 3.9 mmol/L (3.5-5.1); Sodium 135 mmol/L (136-145)
[2021-07-12 06:58] LABS: Diff Comment Agrees w/ Instrument; RBC Morphology Normal
--- NOTE | 2021-07-12 08:16 | ANES.PREOP_ITS ---
General Info Date of Service Date Performed: 07/12/21 Height: 6 ft Weight: 121.563 kg Body Mass Index (BMI): 36.3 Surgical Procedure: Operation Date: 07/12/21 08:00 Proposed Procedures Side Surgeon p Debridement Left Kurtis Haywood DPM Meds Allergies and Home Medications Allergies Allergy/AdvReac Type Severity Reaction Status Date / Time No Known Allergies Allergy Unverified 07/11/21 18:01 Home Medication Medication Instructions Recorded enalapril maleate 1 tab PO HS 01/28/16 Jardiance 10 mg PO DAILY 05/13/21 metformin 1,000 mg PO BID 05/13/21 spironolactone 25 mg PO BID 05/13/21 fenofibrate nanocrystallized 48 mg PO DAILY 05/15/21 ibuprofen 600 mg PO Q6H PRN #60 tab 05/15/21 magnesium 250 mg PO DAILY 05/15/21 acetaminophen 1,000 mg PO Q6H PRN 07/11/21 allopurinol 300 mg PO DAILY 07/11/21 gabapentin 300 mg PO QHS 07/11/21 levofloxacin 750 mg PO DAILY 07/11/21 sulfamethoxazole-trimethoprim 1 tab PO BID 07/11/21 [Bactrim DS] Current Visit Medications: Current Medications Generic Name Dose Route Start Last Admin Trade Name Freq PRN Reason Stop Dose Admin Acetaminophen 0 mg 07/11/21 21:01 Acetaminophen 325 Mg Tab PO Q4H PRN PRN Al Hydrox/Mg Hydrox/Simethicone 30 ml 07/11/21 21:01 07/11/21 23:50 Mylanta Suspension 30 Ml Cup PO 30 ml Q2H PRN PRN Administration Allopurinol 300 mg 07/12/21 08:30 Allopurinol 300 Mg Tab PO DAILY CARL Calcium Carbonate 500 mg 07/11/21 22:54 Calcium Carbonate *Tums* 500 Mg Chew PO QID PRN PRN Dextrose 0 gm 07/11/21 21:05 Glucose 40% Oral Solution 15 Gm/37.5 Gm Tube PO DIRECTED PRN Dextrose/Water 0 gm 07/11/21 21:05 Dextrose 50%-Water 25 Gm/50 Ml Syr IVP DIRECTED PRN Dimethicone/Zinc Oxide 0 gm 07/11/21 21:01 Tyler Protect Cream 142 Gm Tube TP PRN PRN Docusate Sodium 100 mg 07/11/21 21:01 Docusate Sodium 100 Mg Cap PO TID PRN PRN Fenofibrate 48 mg 07/12/21 08:30 Fenofibrate, Micronized 48 Mg Tab PO DAILY [facility] Gabapentin 300 mg 07/11/21 23:47 07/12/21 00:27 Gabapentin 300 Mg Cap PO 300 mg HS [facility] Administration Sodium Chloride 500 mls @ 0 mls/hr 07/11/21 21:01 Saline 500ml Bag IV PRN PRN As Directed Vancomycin HCl / Sodium 250 mls @ 0 mls/hr 07/11/21 21:15 Chloride IV .PER PROTOCOL [facility] Protocol Per Protocol Levofloxacin 750 mg in 150 mls @ 100 mls/hr 07/12/21 20:00 Levaquin Premixed Bag IVPB Q24H [facility] Protocol Vancomycin/PEG/NADA/Lysine/Water 2 gm in 400 mls @ 200 mls/hr 07/12/21 10:00 Vancocin Injection IVPB Q12H [facility] IV Miscellaneous Supplies 1 each 07/11/21 21:15 Iv Access IV DIRECTED [facility] Ibuprofen 600 mg 07/11/21 23:30 Ibuprofen 600 Mg Tab PO Q6H PRN pain and inflammation Insulin Aspart 0 units 07/12/21 00:00 07/12/21 06:50 Insulin Aspart 300 Units/3 Ml Pen SC Not Given Q6H [facility] Protocol Lisinopril 40 mg 07/12/21 22:00 Lisinopril 20 Mg Tab PO HS [facility] Magnesium Gluconate 250 mg 07/12/21 08:30 Magnesium Gluconate 500 Mg Tab PO DAILY [facility] Magnesium Hydroxide 30 ml 07/11/21 21:01 Milk Of Magnesia 30 Ml Cup PO DAILY PRN PRN Ondansetron HCl 4 mg 07/11/21 23:39 Ondansetron 4 Mg/2 Ml Vial IVP Q6H PRN PRN Pantoprazole Sodium 40 mg 07/12/21 08:30 Pantoprazole 40 Mg Vial IVP DAILY [facility] Sodium Chloride 0 ml 07/11/21 21:01 07/11/21 23:51 Normal Saline Flush 10 Ml Syr IVP 20 ml PRN PRN Administration Spironolactone 25 mg 07/12/21 08:30 Spironolactone 25 Mg Tab PO BID [facility] PFSH Active Problems Active Problems: Problem Status Onset Code GERD (gastroesophageal reflux disease) K21.9 Discharge planning issues Z02.9 DVT prophylaxis Z29.9 Dehydration E86.0 Diabetic foot infection E11.628, L08.9 Hallux limitus of left foot M20.5X2 Diabetic ulcer of foot associated with diabetes mellitus due to underlying condition, limited to breakdown of skin E08.621, L97.501 Medical History Medical History Cardiomyopathy LVEF 61% by echo in 07/2018, up from 23% in 10/2015. (Dr. Melvin) Diabetes mellitus Gout HTN (hypertension) Obesity (BMI 30-39.9) Surgical History Surgical History H/O adenoidectomy History of bunionectomy of left great toe Hx of circumcision 05/13/21 Tobacco Smoking/Tobacco Use Status: Former Tobacco Use Alcohol Alcohol Intake: current Alcohol intake frequency: a few times a month Alcohol type: beer Substance Use Substance use: Never Substance use type: does not use Vital Signs and Lab Results Vital Signs Most Recent Vital Signs in EMR: Most Recent Vital Signs Temp Pulse Resp BP Pulse Ox 36.7 C 95 H 18 156/89 H 95 07/12/21 01:55 07/12/21 01:55 07/12/21 01:55 07/12/21 01:55 07/12/21 01:55 Point of Care Results Point of Care Results: Finger Stick Blood Glucose 120 07/12/21 06:50 Lab Results Result Diagrams: 07/12/21 06:08 07/12/21 06:08 Blood Type / Crossmatch: No Data to Display Complete Blood Count: White Blood Count 11.99 10^3/uL (4.4-10.8) H 07/12/21 06:08 07/12/21 Red Blood Count 4.79 10^6/uL (4.36-5.78) 07/12/21 06:08 07/12/21 Hemoglobin 13.2 g/dL (13.5-17.5) L 07/12/21 06:08 07/12/21 Hematocrit 39.8 % (40.0-50.0) L 07/12/21 06:08 07/12/21 Platelet Count 282 10^3/uL (130-400) 07/12/21 06:08 07/12/21 Complete Metabolic Panel: Sodium Level 135 mmol/L (136-145) L 07/12/21 06:08 07/12/21 Potassium Level 3.9 mmol/L (3.5-5.1) 07/12/21 06:08 07/12/21 Chloride Level 99 mmol/L (98-107) 07/12/21 06:08 07/12/21 Carbon Dioxide Level 20.4 mmol/L (21.0-32.0) L 07/12/21 06:08 07/12/21 Blood Urea Nitrogen 19 mg/dL (7-18) H 07/12/21 06:08 07/12/21 Creatinine 0.9 mg/dL (0.70-1.30) 07/12/21 06:08 07/12/21 Estimated GFR/1.73 m2 >= 60.00 (mL/min/1.73m2) 07/12/21 06:08 07/12/21 Magnesium Level 1.8 mg/dL (1.8-2.4) 07/12/21 06:08 07/12/21 Calcium Level 8.5 mg/dL (8.5-10.1) 07/12/21 06:08 07/12/21 Albumin 3.3 g/dL (3.4-5.0) L 07/11/21 19:35 07/11/21 Glucose Level 126 mg/dL (74-106) H 07/12/21 06:08 07/12/21 C-Reactive Protein 4.18 mg/dL (0.0-0.3) H 07/12/21 06:08 07/12/21 Liver Function Panel: Alanine Aminotransferase (ALT/SGPT) 33 U/L (16-63) 07/11/21 19:35 07/11/21 Aspartate Amino Transf (AST/SGOT) 21 U/L (15-37) 07/11/21 19:35 07/11/21 Coagulation Panel: INR International Normalized Ratio 1.1 (0.9-1.1) 07/12/21 06:08 07/12/21 Prothrombin Time 10.8 sec (9.3-11.0) 07/12/21 06:08 07/12/21 Cardiac Panel: No Data to Display Arterial Blood Gas: No Data to Display Venous Blood Gas: No Data to Display Pancreas Panel: No Data to Display Thyroid Panel: No Data to Display Infectious Disease: Coronavirus (COVID-19)(PCR) Negative (Negative) 07/11/21 19:25 07/11/21 Coronavirus 2019 Source Nasal/Nares 07/11/21 19:25 07/11/21 Blood Cultures: No Data to Display Toxicology Panel: No Data to Display Imaging and Studies Imaging and Studies Study information below may be from another EMR and interpreted by another provider. Please see original notes in EMR for more complete details. Echocardiogram Summary: 07/13/2018 at [facility] [place] SUMMARY: 1. Technically limited study. 2. The left ventricular chamber size is normal. Left ventricular wall thickness is normal. There is normal global left ventricular systolic function. The quantitative left ventricular ejection fraction by biplane Stuart's method is 61%. There are no left ventricular segmental wall motion abnormalities. Doppler assessment is consistent with normal left sided filling pressure. 3. Right ventricular chamber size, wall thickness, and systolic function are within normal limits. Pulmonary artery hypertension could not be assessed due to inadequate tricuspid regurgitation jet. 4. The left atrium is normal in size. The right atrium appears normal. 5. There is no hemodynamically significant valve disease. 6. See remainder of report for additional findings. Anesthesia Assessment and Plan Anesthesia History Personal History: No History of Anesthesia Complications Family History: No Family History of Anesthesia Complications Exercise Tolerance Exercise Tolerance: Metabolic Equivalents>4 Pertinent Negatives Pertinent Negatives: No Symptoms of GERD, No Major Pulmonary Symptoms or Complaints and No History of CVA/TIA Cardiac & Pulmonary Exam Cardiac Exam: Normal S1/S2 Heart Sounds Pulmonary Exam: Clear Bilateral Breath Sounds Implantable Cardiac Device Does patient have a Pacemaker or an ICD?: No Airway Exam Known Difficult Airway: No Mallampati Class: 2 Mouth Opening: Normal (> 3cm) Thyromental Distance: Greater than 3 cm Neck Range of Motion: Full ROM Neck Circumference: Normal Teeth Condition: Generalized Poor Dentition and Loose or Chipped Tooth Numberin. Broken tooth per patient 2. Broken tooth per patient 3. Broken tooth per patient ASA Classification ASA Score: ASA 2 Emergency Case?: Yes NPO Status NPO Status: NPO Clears >2 hours, Solids >8 hours Anesthesia Plan Resuscitation Status: Full Code Anesthesia Technique: MAC Anesthesia Airway Planned: Natural Airway Monitors Used: Standard Monitors
--- NOTE | 2021-07-12 08:31 | W.PODCONSULT ---
Date of service: 07/12/21 Time of Service: 08:31 History of Present Illness History of Present Illness Chief Complaint: Diabetic abscess left first MPJ Narrative: 45-year-old type II diabetic with peripheral neuropathy who had undergone a Pryor type bunionectomy on 05/15/2021 to help resolve a chronic diabetic plantar ulceration who went on to heal uneventfully following his initial procedure. Headed to [facility] for a [place] vacation and subsequently developed fever chills and active infection surrounding the first MPJ of the left foot. He was evaluated at [facility], had a dose of IV vancomycin, was placed on Bactrim and levofloxacin p.o. after refusing admission and headed home for further management in [place]. He presented to the emergency department upon his arrival yesterday and was admitted for IV antibiotics and surgical intervention. PFSH All Active Problems GERD (gastroesophageal reflux disease) (Acute) Discharge planning issues (Acute) DVT prophylaxis (Acute) Dehydration (Acute) Diabetic foot infection (Acute) Hallux limitus of left foot (Acute) Diabetic ulcer of foot associated with diabetes mellitus due to underlying condition, limited to breakdown of skin (Acute) Medical History Cardiomyopathy LVEF 61% by echo in 07/2018, up from 23% in 10/2015. (Dr. Melvin) Diabetes mellitus Gout HTN (hypertension) Obesity (BMI 30-39.9) Surgical History H/O adenoidectomy History of bunionectomy of left great toe Hx of circumcision 05/13/21 Family History Mother Hypertension Social History Smoking/Tobacco Use Status: Former Tobacco Use Quit Date: 06/06/02 Smoking risk assessment performed?: Yes Alcohol Intake: current Alcohol Intake frequency: a few times a month Alcohol type: beer Drug use: Never Substance use type: does not use Do you feel safe at home: Yes Do you feel safe in your relationship?: Yes Exam Narrative Exam Narrative: Dr. Castañeda's physical exam and history and physical were reviewed in their entirety. Ze is seen in his room resting comfortably. Dressings are removed from his left foot. The great toe and first MPJ region is grossly edematous. The skin is tender. He does have good capillary return to the great toe. The ulceration under the first metatarsal head remains closed at this time although the skin appears fragile. Blistering is appreciated dorsal laterally over the great toe consistent with deep space infection. The edema extends proximally to about jail down the first metatarsal and into the first intermetatarsal space. No gissel cellulitis observed. No lymphangitis noted. CT performed yesterday did not identify an active osteomyelitis at this time. Impressions: Diabetic abscess infection left foot as above Plan: Ze is being brought to the OR for incision and drainage and debridement of his left foot. He understands that multiple procedures may be required to eradicate the infection to remove devitalized tissue. He understands the ongoing risk of pain, scarring, infection, loss of the digit. All questions have been answered in detail. Informed consent was obtained. Results Last Vital Signs Temp 36.7 C 07/12/21 01:55 Pulse 95 H 07/12/21 01:55 Resp 18 07/12/21 01:55 BP 156/89 H 07/12/21 01:55 Pulse Ox 95 07/12/21 01:55 Labs Result diagrams: 07/12/21 06:08 07/12/21 06:08 Labs: Laboratory Results - last 24 hr 07/11/21 07/11/21 07/11/21 19:25 19:35 19:35 WBC RBC Hgb Hct MCV MCH MCHC RDW Plt Count MPV Immature Gran % Neutrophils % Band Neutrophils % Lymphocytes % Atypical Lymphs % Monocytes % Eosinophils % Basophils % Metamyelocytes % Nucleated RBC % Absolute Neutrophils Absolute Lymphocytes Absolute Monocytes Absolute Eosinophils Absolute Basophils RBC Morphology ESR 38 H PT INR Sodium Potassium Chloride Carbon Dioxide Anion Gap BUN Creatinine Estimated GFR/1.73 m2 Glucose Calcium Magnesium Total Bilirubin AST ALT Alkaline Phosphatase C-Reactive Protein 6.08 H Total Protein Albumin COVID-19 Source Nasal/Nares SARS-CoV-2 (PCR) Negative 07/11/21 07/11/21 07/12/21 19:35 19:35 06:08 WBC 15.27 H RBC 5.38 Hgb 15.1 Hct 45.9 MCV 85.3 MCH 28.1 MCHC 32.9 RDW 12.7 Plt Count 344 MPV 8.5 Immature Gran % See Differential Neutrophils % 72.0 Band Neutrophils % 1 Lymphocytes % 10.0 Atypical Lymphs % 1 Monocytes % 13.0 Eosinophils % 1.0 Basophils % 0.0 Metamyelocytes % 2 Nucleated RBC % 0 Absolute Neutrophils 11.15 H Absolute Lymphocytes 1.68 Absolute Monocytes 1.99 H Absolute Eosinophils 0.15 Absolute Basophils 0.00 RBC Morphology Normal ESR PT INR Sodium 133 L 135 L Potassium 4.0 3.9 Chloride 95 L 99 Carbon Dioxide 22.5 20.4 L Anion Gap 15.5 H 15.6 H BUN 19 H 19 H Creatinine 1.0 0.9 Estimated GFR/1.73 m2 >= 60.00 >= 60.00 Glucose 132 H 126 H Calcium 9.0 8.5 Magnesium 1.9 1.8 Total Bilirubin 0.5 AST 21 ALT 33 Alkaline Phosphatase 71 C-Reactive Protein 4.18 H Total Protein 9.0 H Albumin 3.3 L COVID-19 Source SARS-CoV-2 (PCR) 07/12/21 07/12/21 06:08 06:08 WBC 11.99 H RBC 4.79 Hgb 13.2 L Hct 39.8 L MCV 83.1 MCH 27.6 MCHC 33.2 RDW 12.7 Plt Count 282 MPV 8.3 Immature Gran % 5.3 Neutrophils % 72.9 Band Neutrophils % Lymphocytes % 11.0 Atypical Lymphs % Monocytes % 9.8 Eosinophils % 0.4 Basophils % 0.6 Metamyelocytes % Nucleated RBC % 0 Absolute Neutrophils 8.74 H Absolute Lymphocytes 1.32 Absolute Monocytes 1.18 H Absolute Eosinophils 0.05 Absolute Basophils 0.07 RBC Morphology Normal ESR PT 10.8 INR 1.1 Sodium Potassium Chloride Carbon Dioxide Anion Gap BUN Creatinine Estimated GFR/1.73 m2 Glucose Calcium Magnesium Total Bilirubin AST ALT Alkaline Phosphatase C-Reactive Protein Total Protein Albumin COVID-19 Source SARS-CoV-2 (PCR)
[2021-07-12] MEDS: Lactated Ringers 1,000 ML 50 ML IV (08:40)
[2021-07-12] MEDS: Lidocaine 1% Multi-Dose 50 ML VIAL (08:50)
[2021-07-12] MEDS: Bupivacaine 0.5% Pres-Free 30 ML VIAL (08:50)
--- NOTE | 2021-07-12 09:20 | ROE_ITS ---
Date of service: 07/12/21 Time of Service: 09:21 Operative Note Operative Note DATE OF PROCEDURE: 07/12/21 PRE-OP DIAGNOSIS: Diabetic infection with abscess left first MPJ region PROCEDURE: Incision and drainage diabetic abscess left foot SURGEON: Kurtis Haywood ANESTHESIA TYPE: General:No Airway Refer to Anesthesia Record ESTIMATED BLOOD LOSS: 5 PATHOLOGY: other COMPLICATIONS: None Patient was transported to: PACU Patient's condition: stable Implants: Quarter-inch iodoform packing tape Indications: 45-year-old type II diabetic with dense neuropathy developed infection in the first metatarsal phalangeal joint region of his left foot requiring hospitalization and surgical intervention. He is status post a previous foot surgery May 15, 2021 where he underwent a Pryor type bunionectomy for management of a chronic plantar diabetic ulcer. Findings: Purulence was evacuated from the lateral plantar aspect of the first metatarsal phalangeal joint through sharp and blunt dissection. The base of the proximal phalanx was palpable with my finger within this involved region. 2 small ulcerations noted on the plantar aspect of the great toe at the metatarsal phalangeal joint level, likely source of infection. Procedure Description: Ze was brought to the operative suite placed in the supine position where the left foot was prepped and draped in the usual sterile podiatric fashion. Timeout was performed for safe surgery. Anesthesia was obtained by IV general and local blockade of the first ray utilizing 10 cc of a 50: 50 mixture 1% lidocaine plain 0.5% Marcaine plain. Attention was directed to the left foot where exfoliating tissue was noted along the lateral aspect of the great toe extending into the interspace skin. This was all sharply removed but no additional openings noted at this site. Debridement of exfoliating tissue and callus under the great toe in the region of the base of the proximal phalanx first metatarsal head reveals 2 small ulcerations each measuring between 1 and 1.5 mm relatively round. Probing of these wounds did not go through the subcutaneous tissue there was no connection that I could find into the deeper part of the foot but nevertheless these openings are the likely source of bacterial infiltration. The dorsal aspect of the first MPJ there is a small stab incision within the previous surgical incision which I attribute to his visit tot emergency room in [facility] where they tried to get some of the fluid out of his foot. I reopened the dorsal incision with a #15 scalpel, opening approximately 3-1/2 cm. He had good active bleeding at this point, there was no gissel purulence at this level. With curved hemostats and blunt finger dissection I traveled laterally at the level of the metatarsal phalangeal joint region and when I came to the lateral plantar side of the joint I could palpate the base of the proximal phalanx and a fair amount of yellowish pus was evacuated from the wound and cultures were obtained at this level for aerobic and anaerobic specimens. Finger palpation was then carried out medially going down to the level of the plantar aspect of the joint. I did not release any significant purulent material medially. The tissue was milked proximal to distal and distal to proximal and no additional purulent pockets were identified nor pus expressed. The wound was then copiously irrigated with normal saline and packed open utilizing quarter inch iodoform gauze packing tape. This was subsequently dressed with Xeroform gauze fluff compression. Ze left the OR with vital signs stable vascular status intact sharp and sponge counts were correct. He will remain in-house for bedrest IV antibiotics and wound care. Ze may require additional washouts depending on how he responds to this procedure, bed rest and IV antibiotics.
--- NOTE | 2021-07-12 09:35 | W.ANESPOSTOP ---
Postoperative Evaluation Date, Time and Location Date Performed: 07/12/21 Time Performed: 09:35 Patient Location: Med/Surg ( 212) Vital Signs Most Recent Imported Vital Signs: Most Recent Vital Signs Temp Pulse Resp BP Pulse Ox 36.5 C 85 18 137/80 98 07/12/21 09:34 07/12/21 09:34 07/12/21 09:34 07/12/21 09:34 07/12/21 09:34 Pain Score Most Recent Pain Score: Most Recent Pain Score Pain Level 0 07/12/21 09:34 Assessment Mental Status: Awake (Alert & Oriented to Patient Baseline) Airway and Respiratory Function: Patent airway with normal (patient baseline) respiratory exam Cardiovascular Function: Hemodynamically Stable Hydration Status: Adequately Hydrated Nausea & Vomiting: No Nausea or Vomiting Pain: Pt. Denies Any Pain Peripheral Nerve Block: Patient did not receive a nerve block
[2021-07-12] MEDS: Fenofibrate, Micronized 48 MG TAB PO (10:08)
[2021-07-12] MEDS: Normal Saline Flush 10 ML SYR IVP (10:08)
[2021-07-12] MEDS: VANCOMYCIN/WATER (PEG) 1.5 GM/300 ML BAG IVPB ×2 (10:08→18:11)
[2021-07-12] MEDS: Pantoprazole 40 MG VIAL IVP (10:08)
[2021-07-12] MEDS: Magnesium Gluconate 500 MG TAB 250 MG PO (10:08)
[2021-07-12] MEDS: Spironolactone 25 MG TAB PO ×2 (10:08→20:50)
--- NOTE | 2021-07-12 13:30 | W.PM.PROGNOT ---
Date of Service Date of service: 07/12/21 Time of Service: 13:30 Assessment and Plan Assessment and plan (1) Diabetic foot infection: Status: Acute Assessment and plan: S/P I&D/washout of toe infection. Continue empiric vancomycin/levofloxacin. No evidence of abscess or OM L foot by CT - but pus noted by Dr Haywood when performed surgery. (2) Diabetes mellitus: Assessment and plan: Cover with SSI. Hold metformin, restart jardiance tomorrow. (3) HTN (hypertension): Assessment and plan: Continue spironoloactone and enalapril SBP in the 130-150's range. (4) Dehydration: Status: Acute Assessment and plan: IVF x 1 L given initially, then LR perioperatively. Stop IV fluids. Now taking in oral w/o N/V. Control nausea. (5) GERD (gastroesophageal reflux disease): Status: Acute Assessment and plan: PPI. Provide antiemetics (6) DVT prophylaxis: Status: Acute Assessment and plan: SCDs (7) Discharge planning issues: Status: Acute Assessment and plan: Full code Planning wound care f/u with Dr Haywood after D/C. Subjective Subjective Patient reports: no new complaints, pain is less, tolerating a regular diet and afebrile; denies nausea and vomiting Exam Narrative Exam Narrative: General: Pleasant obese male eating lunch. s/p I&D/washout of L great toe infection. Neurological: A&Ox3, no focal motor deficits. Psychiatric: Appropriate speech pattern/content. Affect normal. Skin: L ankle and foot are dressed - c/d/i; HEENT: Atraumatic, normocephalic, MMM, no JVD Cardiovascular: RRR, no m/r/g Lungs: CTAB Gastrointestinal: soft, nontener, nondistended. Obese. Extremities: L ankle/foot dressed - c/d/i. No edema. Objective Last Vital Signs Temp 37.2 C 07/12/21 11:25 Pulse 98 H 07/12/21 11:25 Resp 18 07/12/21 09:34 BP 147/91 H 07/12/21 11:25 Pulse Ox 95 07/12/21 11:25 Laboratory Results - last 24 hr 07/11/21 07/11/21 07/11/21 19:25 19:35 19:35 WBC RBC Hgb Hct MCV MCH MCHC RDW Plt Count MPV Immature Gran % Neutrophils % Band Neutrophils % Lymphocytes % Atypical Lymphs % Monocytes % Eosinophils % Basophils % Metamyelocytes % Nucleated RBC % Absolute Neutrophils Absolute Lymphocytes Absolute Monocytes Absolute Eosinophils Absolute Basophils RBC Morphology ESR 38 H PT INR Sodium Potassium Chloride Carbon Dioxide Anion Gap BUN Creatinine Estimated GFR/1.73 m2 Glucose Calcium Magnesium Total Bilirubin AST ALT Alkaline Phosphatase C-Reactive Protein 6.08 H Total Protein Albumin COVID-19 Source Nasal/Nares SARS-CoV-2 (PCR) Negative 07/11/21 07/11/21 07/12/21 19:35 19:35 06:08 WBC 15.27 H RBC 5.38 Hgb 15.1 Hct 45.9 MCV 85.3 MCH 28.1 MCHC 32.9 RDW 12.7 Plt Count 344 MPV 8.5 Immature Gran % See Differential Neutrophils % 72.0 Band Neutrophils % 1 Lymphocytes % 10.0 Atypical Lymphs % 1 Monocytes % 13.0 Eosinophils % 1.0 Basophils % 0.0 Metamyelocytes % 2 Nucleated RBC % 0 Absolute Neutrophils 11.15 H Absolute Lymphocytes 1.68 Absolute Monocytes 1.99 H Absolute Eosinophils 0.15 Absolute Basophils 0.00 RBC Morphology Normal ESR PT INR Sodium 133 L 135 L Potassium 4.0 3.9 Chloride 95 L 99 Carbon Dioxide 22.5 20.4 L Anion Gap 15.5 H 15.6 H BUN 19 H 19 H Creatinine 1.0 0.9 Estimated GFR/1.73 m2 >= 60.00 >= 60.00 Glucose 132 H 126 H Calcium 9.0 8.5 Magnesium 1.9 1.8 Total Bilirubin 0.5 AST 21 ALT 33 Alkaline Phosphatase 71 C-Reactive Protein 4.18 H Total Protein 9.0 H Albumin 3.3 L COVID-19 Source SARS-CoV-2 (PCR) 07/12/21 07/12/21 06:08 06:08 WBC 11.99 H RBC 4.79 Hgb 13.2 L Hct 39.8 L MCV 83.1 MCH 27.6 MCHC 33.2 RDW 12.7 Plt Count 282 MPV 8.3 Immature Gran % 5.3 Neutrophils % 72.9 Band Neutrophils % Lymphocytes % 11.0 Atypical Lymphs % Monocytes % 9.8 Eosinophils % 0.4 Basophils % 0.6 Metamyelocytes % Nucleated RBC % 0 Absolute Neutrophils 8.74 H Absolute Lymphocytes 1.32 Absolute Monocytes 1.18 H Absolute Eosinophils 0.05 Absolute Basophils 0.07 RBC Morphology Normal ESR PT 10.8 INR 1.1 Sodium Potassium Chloride Carbon Dioxide Anion Gap BUN Creatinine Estimated GFR/1.73 m2 Glucose Calcium Magnesium Total Bilirubin AST ALT Alkaline Phosphatase C-Reactive Protein Total Protein Albumin COVID-19 Source SARS-CoV-2 (PCR) PAWSS Have you Been Recently Intoxicated or Drunk Within the Last 30 days?: No Have you Ever Experienced Previous Episodes of Alcohol Withdrawal?: No Have you ever Experienced Withdrawal Seizures?: No Have you ever Experienced Delirium Tremens(DT)s?: No Have you ever undergone Alcohol Rehabilitation Treatment (i.e, inpt ot outpatient treatment programs)?: No Have you ever Experienced Blackouts?: No Have you ever Combined Alcohol with other Downers within the last 90 days?: No Have you ever Combined Alcohol with any other Substance of Abuse during the last 90 days?: No Positive Blood Alcohol level on Presentation? [PCS.BAL]: No Evidence of Increased Autonomic Activity (i.e. HR>120, tremor, sweating, agitation, nausea)?: No Result: 0
--- NOTE | 2021-07-12 16:56 | PDOC.CMIN ---
- If Service Date Differs Date of service: 07/12/21 Time of Service: 16:56 Care Management Initial Assess REASON FOR HOSPITALIZATION:: Diabetic foot infection. PAST MEDICAL HISTORY/PAST SURGICAL HISTORY:: All Active Problems: Discharge planning issues (Acute), DVT prophylaxis (Acute), Dehydration (Acute), Diabetic foot infection (Acute), Hallux limitus of left foot (Acute), and Diabetic ulcer of foot associated with diabetes mellitus due to underlying condition, limited to breakdown of skin (Acute). Medical History: Cardiomyopathy - LVEF 61% by echo in 07/2018, up from 23% in 10/2015. (Dr. Melvin), Diabetes mellitus, Gout, HTN (hypertension), and Obesity (BMI 30-39.9). Surgical History: H/O adenoidectomy, History of bunionectomy of left great toe, and Hx of circumcision - 05/13/21. PREVIOUS FUNCTIONAL STATUS/SOCIAL/FAMILY SUPPORTS:: Ze lives in [place] with his , Su. They have two adult children and one grandchild who live locally. 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 When not at work, Ze enjoys riding in his [employer] and camping. When asked about family supports, he identifies his and son as supportive. Ze drives and is independent at baseline. CURRENT FUNCTIONAL STATUS:: Ze is sitting up in bed when comes to meet with him. His , Su, is present in the room. Ze is pleasant and readily engages in conversation. The couple talk about their recent trip to [place], [place], during which Ze became ill. ADVANCE DIRECTIVES:: None on file; offers form and Ze declines. Has patient been provided with info about the portal/API?: Yes Did the patient sign up for the portal?: Yes CODE STATUS:: Full Code INSURANCE COVERAGE / FINANCIAL ISSUES:: BCBS CURRENT HOME/COMMUNITY SERVICES/EQUIPMENT:: None. PRIMARY CARE PHYSICIAN:: Payam Mejia ([place]). POTENTIAL DISCHARGE NEEDS:: Follow up appointments with PCP and wildlife biology technician. PATIENT/FAMILY EDUCATION NEEDS:: Discharge instructions, limitations, medications, and follow up plan of care; discuss [employer] and self management. ANTICIPATED BARRIERS TO DISCHARGE:: None anticipated at this time. TRANSPORTATION:: Via private vehicle with family. PLAN:: Ze will likely be discharged home with no services when medically cleared by provider. He will follow up with his PCP, Dr. Kurtis Haywood DPM, and discharge plan of care as directed. Ze will be transported home by his via private vehicle when ready. CM will continue to follow.
[2021-07-12] MEDS: levoFLOXacin 750 MG/150 ML BAG 100 MG IVPB (20:51)
[2021-07-12] MEDS: Lisinopril 20 MG TAB 40 MG PO (22:03)
[2021-07-12] MEDS: Allopurinol 300 MG TAB PO (22:04)
[2021-07-13] MEDS: VANCOMYCIN/WATER (PEG) 1.5 GM/300 ML BAG IVPB ×3 (02:20→17:52)
[2021-07-13 03:18] VITALS: BP 149/79; PULSE 85; RESP 18; TEMP 37.1; O2SAT 94
[2021-07-13] MEDS: Pantoprazole 40 MG VIAL IVP (08:09)
[2021-07-13] MEDS: Magnesium Gluconate 500 MG TAB 250 MG PO (08:09)
[2021-07-13] MEDS: Fenofibrate, Micronized 48 MG TAB PO (08:09)
[2021-07-13] MEDS: Insulin Aspart 300 UNITS/3 ML PEN SC ×4 (08:10→21:41)
[2021-07-13] MEDS: Spironolactone 25 MG TAB PO ×2 (08:10→20:17)
[2021-07-13] MEDS: Empaglifozin 10 MG TAB PO (08:12)
[2021-07-13 08:55] VITALS: BP 131/84; PULSE 90; RESP 18; TEMP 37.1; O2SAT 97
--- NOTE | 2021-07-13 09:10 | PDOC.CMPRO ---
- If Service Date Differs Date of service: 07/13/21 Time of Service: 09:10 Care Management Progress Note S/O: Ze continues to be closely monitored and treated. CM continues to follow. A: 45 year old male admitted to [facility] 07/11/20 for diabetic foot infection, s/p washout with Dr. Haywood P: Ze will likely be discharged home with no services when medically cleared by provider. He will follow up with his PCP, Dr. Kurtis Haywood, DPM, and discharge plan of care as directed. Ze will be transported home by his via private vehicle when ready. CM will continue to follow.
[2021-07-13 09:31] LABS: Vancomycin, Trough 15.5 ug/mL (10.0-20.0)
[2021-07-13 11:31] VITALS: BP 114/74; PULSE 93; RESP 18; TEMP 37.2; O2SAT 95
[2021-07-13 15:38] VITALS: BP 172/92; PULSE 97; RESP 16; TEMP 37.3; O2SAT 94
--- NOTE | 2021-07-13 17:40 | W.PM.PROGNOT ---
Date of Service Date of service: 07/13/21 Time of Service: 17:40 Assessment and Plan Assessment and plan (1) Diabetic foot infection: Status: Acute Assessment and plan: S/P I&D/washout of toe infection. Dr Haywood concerned about the appearance of the toe; MRI ordered to assess for osteomyelitis. Continue empiric vancomycin/levofloxacin. y. (2) Diabetes mellitus: Assessment and plan: Cover with SSI. Hold metformin Cont Jardiance. Adjust SS insulin to moderate scale. (3) HTN (hypertension): Assessment and plan: Continue spironoloactone and enalapril SBP in the 130-150's range. (4) Dehydration: Status: Acute Assessment and plan: IVF x 1 L given initially, then LR perioperatively. Stop IV fluids. Now taking in oral w/o N/V. Control nausea. (5) GERD (gastroesophageal reflux disease): Status: Acute Assessment and plan: PPI. Provide antiemetics (6) DVT prophylaxis: Status: Acute Assessment and plan: SCDs (7) Discharge planning issues: Status: Acute Assessment and plan: Full code Planning wound care f/u with Dr Haywood after D/C. Subjective Subjective Patient reports: no new complaints, feels better, tolerating a regular diet and afebrile (low grade temp elevation of 37.7); denies diarrhea, nausea and vomiting Exam Narrative Exam Narrative: General: Sitting up in bed. NAD Neurological: A&Ox3, no focal motor deficits. Psychiatric: Appropriate speech pattern/content. Affect normal. Skin: L ankle and foot are dressed - c/d/i; HEENT: Atraumatic, normocephalic, MMM, no JVD Cardiovascular: RRR, no m/r/g Lungs: CTAB Gastrointestinal: soft, nontener, nondistended. Obese. Extremities: L ankle/foot dressed - c/d/i. No edema. Objective Last Vital Signs Temp 37.3 C 07/13/21 15:38 Pulse 97 H 07/13/21 15:38 Resp 16 07/13/21 15:38 BP 172/92 H 07/13/21 15:38 Pulse Ox 94 07/13/21 15:38 Laboratory Results - last 24 hr 07/13/21 08:55 Vancomycin Trough 15.5 PAWSS Have you Been Recently Intoxicated or Drunk Within the Last 30 days?: No Have you Ever Experienced Previous Episodes of Alcohol Withdrawal?: No Have you ever Experienced Withdrawal Seizures?: No Have you ever Experienced Delirium Tremens(DT)s?: No Have you ever undergone Alcohol Rehabilitation Treatment (i.e, inpt ot outpatient treatment programs)?: No Have you ever Experienced Blackouts?: No Have you ever Combined Alcohol with other Downers within the last 90 days?: No Have you ever Combined Alcohol with any other Substance of Abuse during the last 90 days?: No Positive Blood Alcohol level on Presentation? [PCS.BAL]: No Evidence of Increased Autonomic Activity (i.e. HR>120, tremor, sweating, agitation, nausea)?: No Result: 0
--- NOTE | 2021-07-13 17:42 | PGE_ITS ---
Date of Service Date of service: 07/13/21 Time of Service: 17:42 Subjective Subjective Patient reports: no new complaints and feels better Exam Narrative Exam Narrative: Ze is seen at bedside resting comfortably. He has no new complaints and states he is feeling much better since his admission. He has been able to eat. His is in the room. I understand he was eating [employer] earlier in the day. Microbiology revealed rare mixed gram-positive terrance, final cultures pending, vancomycin trough was 15.5 Dressings are removed from his left foot. Minimal bloody drainage noted. Periwound erythema is resolving no cellulitis of. Good capillary return appreciated or problems. The left great toe is grossly edematous. Packing is removed from the wound. Tissue still has a pussy appearance, no odor observed. Manipulation of the wound and periwound region expressed some bloody drainage, no significant signs of pus noted. Impressions: Postop day 1 open packed wound check left foot pain Plan: The wound was copiously irrigated with 250 cc of normal saline pressure 60 cc syringe. The wound was packed with normal saline soaked gauze fluff co mpression. Ze is going to require another washout in the OR. Before proceeding, I want to obtain an MRI to help determine if the great toe is salvageable and if an active osteomyelitis has developed. I had a long discussion with Ze and his concerning the potential of amputating the great toe and that decision will be made in the near future. He is to remain in-house for IV antibiotics wound care. He remains on vancomycin and levofloxacin. I discussed the case with Dr. Patel. Objective Last Vital Signs Temp 37.3 C 07/13/21 15:38 Pulse 97 H 07/13/21 15:38 Resp 16 07/13/21 15:38 BP 172/92 H 07/13/21 15:38 Pulse Ox 94 07/13/21 15:38 Laboratory Results - last 24 hr 07/13/21 08:55 Vancomycin Trough 15.5 PAWSS Have you Been Recently Intoxicated or Drunk Within the Last 30 days?: No Have you Ever Experienced Previous Episodes of Alcohol Withdrawal?: No Have you ever Experienced Withdrawal Seizures?: No Have you ever Experienced Delirium Tremens(DT)s?: No Have you ever undergone Alcohol Rehabilitation Treatment (i.e, inpt ot outpatient treatment programs)?: No Have you ever Experienced Blackouts?: No Have you ever Combined Alcohol with other Downers within the last 90 days?: No Have you ever Combined Alcohol with any other Substance of Abuse during the last 90 days?: No Positive Blood Alcohol level on Presentation? [PCS.BAL]: No Evidence of Increased Autonomic Activity (i.e. HR>120, tremor, sweating, agitation, nausea)?: No Result: 0
[2021-07-13 20:16] VITALS: BP 152/89; PULSE 93; RESP 18; TEMP 37.7; O2SAT 94
[2021-07-13] MEDS: levoFLOXacin 750 MG/150 ML BAG 100 MG IVPB (20:17)
[2021-07-13] MEDS: Normal Saline Flush 10 ML SYR IVP (20:17)
[2021-07-13] MEDS: Allopurinol 300 MG TAB PO (21:40)
[2021-07-13] MEDS: Lisinopril 20 MG TAB 40 MG PO (21:40)
[2021-07-13] MEDS: Gabapentin 300 MG CAP PO (21:40)
[2021-07-13 21:43] VITALS: BP 146/90; PULSE 95; RESP 18; TEMP 37.5; O2SAT 95
[2021-07-14] VITALS (8 sets, daily range): BP systolic 114–138; BP diastolic 72–90; PULSE 78–100; RESP 16–19; TEMP 36.6–37.5; O2SAT 93–96
[2021-07-14] MEDS: VANCOMYCIN/WATER (PEG) 1.5 GM/300 ML BAG IVPB ×3 (02:03→19:04)
[2021-07-14] MEDS: Normal Saline Flush 10 ML SYR IVP ×4 (02:03→21:46)
[2021-07-14 06:40] LABS: HCT 39.9 % (40.0-50.0); HGB 13.3 g/dL (13.5-17.5); MCHC 33.3 % (32.0-36.0); MPV 8.2 fL (8.0-11.0); Nucleated RBC 0 %; Platelet Count 278 10^3/uL (130-400); RBC 4.75 10^6/uL (4.36-5.78); RDW 12.3 % (11.8-14.1); RDW-SD 37.6 fL; WBC 12.17 10^3/uL (4.4-10.8)
[2021-07-14 06:49] LABS: C-Reactive Protein 3.83 mg/dL (0.0-0.3)
[2021-07-14 07:29] LABS: Absolute Basophil Count 0.12 10^3/uL (0.0-0.2); Absolute Eosinophil Count 0.37 10^3/uL (0.0-0.7); Absolute Lymphocyte Count 2.43 10^3/uL (1.2-3.4); Absolute Monocyte Count 0.73 10^3/uL (0.1-0.8); Absolute Neutrophil Count 7.55 10^3/uL (1.2-6.7); Atypical Lymphocytes % 5; Bands % 6; Diff Comment Manual Differential; Metamyelocytes % 8; RBC Morphology Normal
[2021-07-14] MEDS: Magnesium Gluconate 500 MG TAB 250 MG PO (08:50)
[2021-07-14] MEDS: Fenofibrate, Micronized 48 MG TAB PO (08:51)
[2021-07-14] MEDS: Pantoprazole 40 MG TABCR PO (08:52)
[2021-07-14] MEDS: Spironolactone 25 MG TAB PO ×2 (08:52→21:44)
[2021-07-14] MEDS: Empaglifozin 10 MG TAB PO (08:52)
[2021-07-14] MEDS: Insulin Aspart 300 UNITS/3 ML PEN SC ×4 (08:53→21:45)
[2021-07-14] MEDS: Gadoterate meglumine 20 ML VIAL IVP (10:38)
--- NOTE | 2021-07-14 11:22 | DI.MRI_ITS ---
Exam(s) MR LOWER EXTREMITY LT WO/W EXAM: MR LOWER EXTREMITY LT WO/W CLINICAL HISTORY: diabetic wound infection. Osteomyelitis possible.. TECHNIQUE: Multiplanar multisequence MRI was performed. CONTRAST MATERIAL: IV Contrast: 20 mL of Dotarem contrast administered. COMPARISON: CT foot 07/11/2021 and MRI foot 02/04/2021. FINDINGS: BONES/JOINTS: Since the prior MRI examination, there has been resection of the base of the proximal p halanx of the great toe. There is hyperintense signal seen in the 1st metacarpal with sparing of the base. There is also hyperintense signal seen in the remaining proximal phalanx and distal phalanx o f the great toe. This was not present on the prior examination. Following contrast administration t here is enhancement of the proximal phalanx of the great toe and the head of the 1st metatarsal bone. No other abnormal enhancement is identified. There is enhancement of the surrounding soft tissues extending from the 1st tarsometatarsal joint through to the great toe. This is consistent with cellu litis. No joint effusion identified. LIGAMENTS: Except for the ligaments around the surgical changes at the 1st MTP joint, the loop visual ized ligaments are intact. MUSCULOTENDINOUS STRUCTURES: Visualized portion of the planar fascia is unremarkable. The visualized intrinsic muscles and tendons of the foot are unremarkable. SOFT TISSUES: There is a skin defect on the dorsum of the great toe overlying the 1st MTP joint. Thi s may represent an ulcer. There is edema in the soft tissues of the medial foot extending as far pos terior as the medial cuneiform and extending distally to involve the great toe. There is a 1 cm x 0. 5 cm peripherally enhancing fluid collection on the plantar surface of the foot at the level of the p roximal phalanx. This may represent an abscess. It lies superficial to the flexor tendon of the gre at toe. ENHANCEMENT: Please see above. OTHER FINDINGS: None. IMPRESSION: 1. Findings suspicious for osteomyelitis involving the head of the 1st metatarsal and the remaining i t of the proximal phalanx of the great toe. 2. Interval resection of the base of the proximal phalanx of the great toe 3. Soft tissue defect along the dorsum of the great toe which may represent an ulcer. 4. Wall enhancing 1 x 0.5 cm fluid collection on the plantar surface of the great toe which may repre sent an abscess. 5. Edema and enhancement in the soft tissues along the medial aspect of the foot extending from the T MT joint to the great toe consistent with cellulitis. DATA REPOSITORY:
--- NOTE | 2021-07-14 12:56 | W.PM.PROGNOT ---
Date of Service Date of service: 07/14/21 Time of Service: 12:56 Assessment and Plan Assessment and plan (1) Diabetic foot infection: Status: Acute Assessment and plan: S/P I&D/washout of toe infection. Dr Haywood concerned about the appearance of the toe; MRI ordered to assess for osteomyelitis with the following findings: 1. Findings suspicious for osteomyelitis involving the head of the 1st metatarsal and the remaining it of the proximal phalanx of the great toe. 2. Interval resection of the base of the proximal phalanx of the great toe 3. Soft tissue defect along the dorsum of the great toe which may represent an ulcer. 4. Wall enhancing 1 x 0.5 cm fluid collection on the plantar surface of the great toe which may represent an abscess. 5. Edema and enhancement in the soft tissues along the medial aspect of the foot extending from the TMT joint to the great toe consistent with cellulitis. Continue empiric vancomycin/levofloxacin. Will likely undergo amputation of toe and metetarsal head. (2) Diabetes mellitus: Assessment and plan: Cover with SSI. Hold metformin Cont Jardiance. Adjust SS insulin to moderate scale. (3) HTN (hypertension): Assessment and plan: Continue spironoloactone and enalapril SBP in the 130-150's range. (4) GERD (gastroesophageal reflux disease): Status: Acute Assessment and plan: PPI. Provide antiemetics (5) DVT prophylaxis: Status: Acute Assessment and plan: SCDs (6) Discharge planning issues: Status: Acute Assessment and plan: Full code Planning wound care f/u with Dr Haywood after D/C. Subjective Subjective Patient reports: no new complaints and afebrile; denies nausea, vomiting and shortness of breath Exam Narrative Exam Narrative: General: Sitting up in bed. NAD Neurological: A&Ox3, no focal motor deficits. Psychiatric: Appropriate speech pattern/content. Affect normal. Skin: L ankle and foot are dressed - c/d/i; HEENT: Atraumatic, normocephalic, MMM, no JVD Cardiovascular: RRR, no m/r/g Lungs: CTAB Gastrointestinal: soft, nontener, nondistended. Obese. Extremities: L ankle/foot dressed - c/d/i. No edema. Objective Last Vital Signs Temp 37.0 C 07/14/21 11:51 Pulse 87 07/14/21 11:51 Resp 17 07/14/21 11:51 BP 125/80 07/14/21 11:51 Pulse Ox 96 07/14/21 11:51 Laboratory Results - last 24 hr 07/14/21 07/14/21 06:30 06:30 WBC 12.17 H RBC 4.75 Hgb 13.3 L Hct 39.9 L MCV 84.0 MCH 28.0 MCHC 33.3 RDW 12.3 Plt Count 278 MPV 8.2 Immature Gran % 0.0 Neutrophils % 56.0 Band Neutrophils % 6 Lymphocytes % 15.0 Atypical Lymphs % 5 Monocytes % 6.0 Eosinophils % 3.0 Basophils % 1.0 Metamyelocytes % 8 Nucleated RBC % 0 Absolute Neutrophils 7.55 H Absolute Lymphocytes 2.43 Absolute Monocytes 0.73 Absolute Eosinophils 0.37 Absolute Basophils 0.12 RBC Morphology Normal C-Reactive Protein 3.83 H PAWSS Have you Been Recently Intoxicated or Drunk Within the Last 30 days?: No Have you Ever Experienced Previous Episodes of Alcohol Withdrawal?: No Have you ever Experienced Withdrawal Seizures?: No Have you ever Experienced Delirium Tremens(DT)s?: No Have you ever undergone Alcohol Rehabilitation Treatment (i.e, inpt ot outpatient treatment programs)?: No Have you ever Experienced Blackouts?: No Have you ever Combined Alcohol with other Downers within the last 90 days?: No Have you ever Combined Alcohol with any other Substance of Abuse during the last 90 days?: No Positive Blood Alcohol level on Presentation? [PCS.BAL]: No Evidence of Increased Autonomic Activity (i.e. HR>120, tremor, sweating, agitation, nausea)?: No Result: 0
--- NOTE | 2021-07-14 12:59 | CMPROGNOTE_ITS ---
- If Service Date Differs Date of service: 07/14/21 Time of Service: 12:59 Care Management Progress Note S/O: Ze continues to be closely monitored and treated he was visiting with his who was sitting at his bedside. Both were pleasant in interaction and shared no concerns at this time. Su did request support with submitting her financial assistance application tomorrow. Per Dr. Patel and Dr. Haywood and MRI findings, anticipate Ze will find out today if he will be brought to the OR tomorrow for an amputation-also awaiting determination of need for L/T IV ABX. CM continues to follow. A: 45 year old male admitted to [facility] 07/11/20 for diabetic foot infection, s/p washout with Dr. Haywood P: Awaiting updates regarding discharge planning considerations as above. He will follow up with his PCP, Dr. Kurtis Haywood, DPM, and discharge plan of care as directed. Ze will be transported home by his via private vehicle when ready. CM will continue to follow.
--- NOTE | 2021-07-14 17:40 | PGE_ITS ---
Date of Service Date of service: 07/14/21 Time of Service: 17:40 Subjective Subjective Patient reports: no new complaints Exam Narrative Exam Narrative: Subjective: Ze is resting comfortably in his room in his bed. His is in his room with him. He denies any fevers, chills or feelings of malaise. He states that he spoke with the hospitalist Dr. Flynn earlier in the day and that he understands he is going to lose his toe. Objective: Labs are reviewed. He continues to receive IV vancomycin and levofloxacin. He did undergo an MRI with contrast which reveals bone activity affecting the proximal phalanx, head of the first metatarsal and potential fluid accumulation plantarly under the proximal phalanx superficial to the flexor tendon. I did d iscuss the MRI findings with Dr. Connelly the radiologist who read the films earlier in the day. Dressings are taken down from the left foot. The foot remained edematous and the great toe significantly so. With palpation I am still able to express some pus coming from the medial proximal aspect of the incision up into the wound. He has good capillary return of the lesser toes and easily palpable pulses at the ankle level. Impressions ongoing diabetic infection left first MPJ with clinical and radiologic evidence of osteomyelitis. Plan: I reviewed treatment options in their entirety including an attempt at salvaging the great toe which would require prolonged IV antibiotics and multiple surgical interventions resulting in a nonfunctioning short great toe that had no biomechanical significant versus amputation of the great toe, resolving the infection with a delayed primary closure which would get him back on his feet and back to work in a more expedient fashion. The risk and complic ations including failure to thrive, wound dehiscence, ongoing infection with the potential for more proximal loss of tissue discussed. There is no promises been made to the final outcome of surgery. All questions have been answered in detail. Surgery will be planned for tomorrow. I did discuss the case with Dr. Flynn. Objective Last Vital Signs Temp 37.2 C 07/14/21 15:33 Pulse 91 H 07/14/21 15:33 Resp 17 07/14/21 15:33 BP 133/82 07/14/21 15:33 Pulse Ox 95 07/14/21 15:33 Laboratory Results - last 24 hr 07/14/21 07/14/21 06:30 06:30 WBC 12.17 H RBC 4.75 Hgb 13.3 L Hct 39.9 L MCV 84.0 MCH 28.0 MCHC 33.3 RDW 12.3 Plt Count 278 MPV 8.2 Immature Gran % 0.0 Neutrophils % 56.0 Band Neutrophils % 6 Lymphocytes % 15.0 Atypical Lymphs % 5 Monocytes % 6.0 Eosinophils % 3.0 Basophils % 1.0 Metamyelocytes % 8 Nucleated RBC % 0 Absolute Neutrophils 7.55 H Absolute Lymphocytes 2.43 Absolute Monocytes 0.73 Absolute Eosinophils 0.37 Absolute Basophils 0.12 RBC Morphology Normal C-Reactive Protein 3.83 H PAWSS Have you Been Recently Intoxicated or Drunk Within the Last 30 days?: No Have you Ever Experienced Previous Episodes of Alcohol Withdrawal?: No Have you ever Experienced Withdrawal Seizures?: No Have you ever Experienced Delirium Tremens(DT)s?: No Have you ever undergone Alcohol Rehabilitation Treatment (i.e, inpt ot outpatient treatment programs)?: No Have you ever Experienced Blackouts?: No Have you ever Combined Alcohol with other Downers within the last 90 days?: No Have you ever Combined Alcohol with any other Substance of Abuse during the last 90 days?: No Positive Blood Alcohol level on Presentation? [PCS.BAL]: No Evidence of Increased Autonomic Activity (i.e. HR>120, tremor, sweating, agitation, nausea)?: No Result: 0
[2021-07-14] MEDS: Lisinopril 20 MG TAB 40 MG PO (21:44)
[2021-07-14] MEDS: Allopurinol 300 MG TAB PO (21:44)
[2021-07-14] MEDS: Gabapentin 300 MG CAP PO (21:45)
[2021-07-14] MEDS: levoFLOXacin 750 MG/150 ML BAG 100 MG IVPB (21:45)
[2021-07-14] MEDS: Ibuprofen 600 MG TAB PO (21:48)
[2021-07-15] VITALS (9 sets, daily range): BP systolic 103–142; BP diastolic 58–82; PULSE 74–98; RESP 10–20; TEMP 36.3–37.5; O2SAT 94–98; BMI 35.9
[2021-07-15] MEDS: VANCOMYCIN/WATER (PEG) 1.5 GM/300 ML BAG IVPB ×2 (02:10→12:08)
[2021-07-15] MEDS: Normal Saline Flush 10 ML SYR IVP (02:10)
[2021-07-15 07:24] LABS: HCT 41.7 % (40.0-50.0); HGB 13.8 g/dL (13.5-17.5); MCH 27.9 pg (27.0-33.0); MCHC 33.1 % (32.0-36.0); MCV 84.4 fL (80-95); MPV 8.4 fL (8.0-11.0); Nucleated RBC 0 %; Platelet Count 315 10^3/uL (130-400); RBC 4.94 10^6/uL (4.36-5.78); RDW 12.4 % (11.8-14.1); RDW-SD 38.3 fL; WBC 11.13 10^3/uL (4.4-10.8)
[2021-07-15 07:31] LABS: BUN 20 mg/dL (7-18); Calcium 8.7 mg/dL (8.5-10.1); Chloride 100 mmol/L (98-107); Glucose 194 mg/dL (74-106); Sodium 137 mmol/L (136-145)
[2021-07-15 07:50] LABS: Absolute Eosinophil Count 0.11 10^3/uL (0.0-0.7); Absolute Lymphocyte Count 2.45 10^3/uL (1.2-3.4); Absolute Monocyte Count 0.67 10^3/uL (0.1-0.8); Absolute Neutrophil Count 7.68 10^3/uL (1.2-6.7); Atypical Lymphocytes % 7; Bands % 4; Diff Comment Manual Differential; Metamyelocytes % 2; RBC Morphology Normal
[2021-07-15 09:35] LABS: Vancomycin, Trough 26.2 ug/mL (10.0-20.0)
--- NOTE | 2021-07-15 09:35 | PDOC.CMPRO ---
- If Service Date Differs Date of service: 07/15/21 Time of Service: 09:35 Care Management Progress Note S/O: Ze was sleeping when CM met with him this afternoon. His was at his bedside. Earlier in the day he went to the OR for a left great toe amputation. Cultures are pending. He may need joint terminal attack controller abx. Ze's needs more time to fill out the financial assistance paperwork and plans to turn them in tomorrow. A: 45 year old male admitted to [facility] 07/11/20 for diabetic foot infection, s/p washout with Dr. Haywood P: Awaiting updates regarding discharge planning considerations as above. He will follow up with his PCP, Dr. Kurtis Haywood, DPM, and discharge plan of care as directed. Ze will be transported home by his via private vehicle when ready. CM will continue to follow.
[2021-07-15] MEDS: Normal Saline 1,000 ML 80 ML IV (09:40)
--- NOTE | 2021-07-15 09:51 | W.ANESPRE ---
General Info Date of Service Date Performed: 07/15/21 Height: 6 ft Weight: 120.2 kg Body Mass Index (BMI): 35.9 Surgical Procedure: Operation Date: 07/12/21 08:00 Proposed Procedures Side Surgeon p Debridement Left Kurtis Haywood DPM Actual Procedures Side Surgeon p Irrigigation & Debridement of Great Toe Left Kurtis Haywood DPM Pre-Op Diagnosis Post-Op Diagnosis Diabetic abscess of left great toe Diabetic foot infection Operation Date: 07/15/21 10:25 Proposed Procedures Side Surgeon p Open Toe Amputation Lt Great Toe Left Kurtis Haywood DPM Meds Allergies and Home Medications Allergies Allergy/AdvReac Type Severity Reaction Status Date / Time No Known Allergies Allergy Unverified 07/11/21 18:01 Home Medication Medication Instructions Recorded enalapril maleate 1 tab PO HS 01/28/16 Jardiance 10 mg PO DAILY 05/13/21 metformin 1,000 mg PO BID 05/13/21 spironolactone 25 mg PO BID 05/13/21 fenofibrate nanocrystallized 48 mg PO DAILY 05/15/21 ibuprofen 600 mg PO Q6H PRN #60 tab 05/15/21 magnesium 250 mg PO DAILY 05/15/21 acetaminophen 1,000 mg PO Q6H PRN 07/11/21 allopurinol 300 mg PO DAILY 07/11/21 gabapentin 300 mg PO QHS 07/11/21 levofloxacin 750 mg PO DAILY 07/11/21 sulfamethoxazole-trimethoprim 1 tab PO BID 07/11/21 [Bactrim DS] Current Visit Medications: Current Medications Generic Name Dose Route Start Last Admin Trade Name Freq PRN Reason Stop Dose Admin Acetaminophen 0 mg 07/11/21 21:01 Acetaminophen 325 Mg Tab PO Q4H PRN PRN Al Hydrox/Mg Hydrox/Simethicone 30 ml 07/11/21 21:01 07/11/21 23:50 Mylanta Suspension 30 Ml Cup PO 30 ml Q2H PRN PRN Administration Allopurinol 300 mg 07/12/21 22:00 07/14/21 21:44 Allopurinol 300 Mg Tab PO 300 mg HS CARL Administration Calcium Carbonate 500 mg 07/11/21 22:54 Calcium Carbonate *Tums* 500 Mg Chew PO QID PRN PRN Dextrose 0 gm 07/11/21 21:05 Glucose 40% Oral Solution 15 Gm/37.5 Gm Tube PO DIRECTED PRN Dextrose/Water 0 gm 07/11/21 21:05 Dextrose 50%-Water 25 Gm/50 Ml Syr IVP DIRECTED PRN Dimethicone/Zinc Oxide 0 gm 07/11/21 21:01 Tyler Protect Cream 142 Gm Tube TP PRN PRN Docusate Sodium 100 mg 07/11/21 21:01 Docusate Sodium 100 Mg Cap PO TID PRN PRN Empagliflozin 10 mg 07/13/21 08:30 07/15/21 08:50 Empaglifozin 10 Mg Tab PO Not Given QAM [facility] Fenofibrate 48 mg 07/12/21 08:30 07/15/21 08:50 Fenofibrate, Micronized 48 Mg Tab PO Not Given DAILY [facility] Gabapentin 300 mg 07/11/21 23:47 07/14/21 21:45 Gabapentin 300 Mg Cap PO 300 mg HS CARL Administration Sodium Chloride 500 mls @ 0 mls/hr 07/11/21 21:01 Saline 500ml Bag IV PRN PRN As Directed Levofloxacin 750 mg in 150 mls @ 100 mls/hr 07/12/21 20:00 07/14/21 21:45 Levaquin Premixed Bag IVPB 100 mls/hr Q24H [facility] Administration Protocol Vancomycin/PEG/NADA/Lysine/Water 1.5 gm in 300 mls @ 150 mls/hr 07/15/21 12:00 Vancocin Injection IVPB Q10H [facility] IV Miscellaneous Supplies 1 each 07/11/21 21:15 Iv Access IV DIRECTED [facility] Ibuprofen 600 mg 07/13/21 12:34 07/14/21 21:48 Ibuprofen 600 Mg Tab PO 600 mg Q6H PRN PRN Administration pain and inflammation Insulin Aspart 0 units 07/12/21 12:00 07/15/21 09:08 Insulin Aspart 300 Units/3 Ml Pen SC Not Given 0800,1200,1700,2200 [facility] Protocol Lisinopril 40 mg 07/12/21 22:00 07/14/21 21:44 Lisinopril 20 Mg Tab PO 40 mg HS CARL Administration Magnesium Gluconate 250 mg 07/12/21 08:30 07/15/21 08:50 Magnesium Gluconate 500 Mg Tab PO Not Given DAILY [facility] Magnesium Hydroxide 30 ml 07/11/21 21:01 Milk Of Magnesia 30 Ml Cup PO DAILY PRN PRN Ondansetron HCl 4 mg 07/11/21 23:39 Ondansetron 4 Mg/2 Ml Vial IVP Q6H PRN PRN Pantoprazole Sodium 40 mg 07/14/21 07:30 07/15/21 08:50 Pantoprazole 40 Mg Tabcr PO Not Given DAILY@0730 CARL Sodium Chloride 0 ml 07/11/21 21:01 07/15/21 02:10 Normal Saline Flush 10 Ml Syr IVP 10 ml PRN PRN Administration Spironolactone 25 mg 07/12/21 08:30 07/15/21 08:51 Spironolactone 25 Mg Tab PO Not Given BID CRAL PFSH Active Problems Active Problems: Problem Status Onset Code GERD (gastroesophageal reflux disease) K21.9 Discharge planning issues Z02.9 DVT prophylaxis Z29.9 Dehydration E86.0 Diabetic foot infection E11.628, L08.9 Hallux limitus of left foot M20.5X2 Diabetic ulcer of foot associated with diabetes mellitus due to underlying condition, limited to breakdown of skin E08.621, L97.501 Medical History Medical History Cardiomyopathy LVEF 61% by echo in 07/2018, up from 23% in 10/2015. (Dr. Melvin) Diabetes mellitus Gout HTN (hypertension) Obesity (BMI 30-39.9) Surgical History Surgical History H/O adenoidectomy History of bunionectomy of left great toe Hx of circumcision 05/13/21 Tobacco Smoking/Tobacco Use Status: Former Tobacco Use Alcohol Alcohol Intake: current Alcohol intake frequency: a few times a month Alcohol type: beer Substance Use Substance use: Never Substance use type: does not use Vital Signs and Lab Results Vital Signs Most Recent Vital Signs in EMR: Most Recent Vital Signs Temp Pulse Resp BP Pulse Ox 36.8 C 98 H 17 124/75 96 07/15/21 03:28 07/15/21 03:28 07/15/21 03:28 07/15/21 03:28 07/15/21 03:28 Point of Care Results Point of Care Results: Finger Stick Blood Glucose 189 07/15/21 07:55 Lab Results Result Diagrams: 07/15/21 07:05 07/15/21 07:05 Blood Type / Crossmatch: No Data to Display Complete Blood Count: White Blood Count 11.13 10^3/uL (4.4-10.8) H 07/15/21 07:05 07/15/21 Red Blood Count 4.94 10^6/uL (4.36-5.78) 07/15/21 07:05 07/15/21 Hemoglobin 13.8 g/dL (13.5-17.5) 07/15/21 07:05 07/15/21 Hematocrit 41.7 % (40.0-50.0) 07/15/21 07:05 07/15/21 Platelet Count 315 10^3/uL (130-400) 07/15/21 07:05 07/15/21 Complete Metabolic Panel: Sodium Level 137 mmol/L (136-145) 07/15/21 07:05 07/15/21 Potassium Level 4.0 mmol/L (3.5-5.1) 07/15/21 07:05 07/15/21 Chloride Level 100 mmol/L (98-107) 07/15/21 07:05 07/15/21 Carbon Dioxide Level 27.0 mmol/L (21.0-32.0) 07/15/21 07:05 07/15/21 Blood Urea Nitrogen 20 mg/dL (7-18) H 07/15/21 07:05 07/15/21 Creatinine 1.0 mg/dL (0.70-1.30) 07/15/21 07:05 07/15/21 Estimated GFR/1.73 m2 >= 60.00 (mL/min/1.73m2) 07/15/21 07:05 07/15/21 Magnesium Level 1.8 mg/dL (1.8-2.4) 07/12/21 06:08 07/12/21 Calcium Level 8.7 mg/dL (8.5-10.1) 07/15/21 07:05 07/15/21 Albumin 3.3 g/dL (3.4-5.0) L 07/11/21 19:35 07/11/21 Glucose Level 194 mg/dL (74-106) H 07/15/21 07:05 07/15/21 C-Reactive Protein 3.83 mg/dL (0.0-0.3) H 07/14/21 06:30 07/14/21 Liver Function Panel: Alanine Aminotransferase (ALT/SGPT) 33 U/L (16-63) 07/11/21 19:35 07/11/21 Aspartate Amino Transf (AST/SGOT) 21 U/L (15-37) 07/11/21 19:35 07/11/21 Coagulation Panel: INR International Normalized Ratio 1.1 (0.9-1.1) 07/12/21 06:08 07/12/21 Prothrombin Time 10.8 sec (9.3-11.0) 07/12/21 06:08 07/12/21 Cardiac Panel: No Data to Display Arterial Blood Gas: No Data to Display Venous Blood Gas: No Data to Display Pancreas Panel: No Data to Display Thyroid Panel: No Data to Display Infectious Disease: Coronavirus (COVID-19)(PCR) Negative (Negative) 07/11/21 19:25 07/11/21 Coronavirus 2019 Source Nasal/Nares 07/11/21 19:25 07/11/21 Blood Cultures: No Data to Display Toxicology Panel: No Data to Display Imaging and Studies Imaging and Studies Study information below may be from another EMR and interpreted by another provider. Please see original notes in EMR for more complete details. Echocardiogram Summary: 07/13/2018 at [facility] [place]: 1. Technically limited study. 2. The left ventricular chamber size is normal. Left ventricular wall thickness is normal. There is normal global left ventricular systolic function. The quantitative left ventricular ejection fraction by biplane Stuart's method is 61%. There are no left ventricular segmental wall motion abnormalities. Doppler assessment is consistent with normal left sided filling pressure. 3. Right ventricular chamber size, wall thickness, and systolic function are within normal limits. Pulmonary artery hypertension could not be assessed due to inadequate tricuspid regurgitation jet. 4. The left atrium is normal in size. The right atrium appears normal. 5. There is no hemodynamically significant valve disease. 6. See remainder of report for additional findings. Anesthesia Assessment and Plan Anesthesia History Personal History: No History of Anesthesia Complications Family History: No Family History of Anesthesia Complications Exercise Tolerance Exercise Tolerance: Metabolic Equivalents>4 Cardiac & Pulmonary Exam Cardiac Exam: Normal S1/S2 Heart Sounds Pulmonary Exam: Clear Bilateral Breath Sounds Implantable Cardiac Device Does patient have a Pacemaker or an ICD?: No Airway Exam Known Difficult Airway: No Mallampati Class: 2 Mouth Opening: Normal (> 3cm) Thyromental Distance: Greater than 3 cm Neck Range of Motion: Full ROM Neck Circumference: Normal Teeth Condition: Generalized Poor Dentition and Loose or Chipped ASA Classification ASA Score: ASA 3 Emergency Case?: No NPO Status NPO Status: NPO Clears >2 hours, Solids >8 hours Anesthesia Plan Resuscitation Status: Full Code Anesthesia Technique: General Anesthesia Airway Planned: Natural Airway Monitors Used: Standard Monitors
--- NOTE | 2021-07-15 10:46 | AMP_PTH ---
PATIENT: Ze Sauceda JR LOC: U#:[id number] AGE/SX: 45/M ROOM: [facility] RE07/11/[address]: Esmer Castañeda : 1975 BED: A DIS: 07/20/2021 SPEC #: [id number] RECD: 07/15/21 13:00 STATUS: [place] REAlex #: [id number] JENNIFER: 07/15/21 10:[address]: Esmer Castañeda DEPT: Surgical Specimen RECD BY: Bethany Lagunas ENTERED: 07/15/21 13:02 SP TYPE: Amputation OTHR DR: Payam Mejia Tissues: 1 - AMPUTATION FINGERS/TOES(NOT TRAUMA) 2 - BONE BX/CURRETTE NOT PATH FRACTURE Procedures: GROSS AND MICRO LEVEL 4 GROSS AND MICRO LEVEL 3 DECALCIFICATION Comments: [id number]
--- NOTE | 2021-07-15 11:13 | ROE_ITS ---
Date of service: 07/15/21 Time of Service: 11:13 Operative Note Operative Note DATE OF PROCEDURE: 07/12/21 PRE-OP DIAGNOSIS: Diabetic infection with osteomyelitis left hallux POST-OP DIAGNOSIS: same PROCEDURE: Open amputation left great toe SURGEON: Kurtis Haywood ANESTHESIA TYPE: General:No Airway Refer to Anesthesia Record ESTIMATED BLOOD LOSS: 1 TOURNIQUET TIME: 24 COMPLICATIONS: None Patient was transported to: PACU Patient's condition: stable Implants: Quarter-inch iodoform packing tape Indications: 45-year-old type II diabetic with dense neuropathy subsequent persistent diabetic infection with osteomyelitis affecting the left great toe. He is being brought to the OR for an open amputation of the left great toe debridement. He understands that this is a staged procedure and that he will require additional interventions. He is aware of the potential for ongoing pain, scarring, disability, ongoing infection, the permanency of the amputation. All questions have been answered in detail. Informed consent has been obtained. Procedure Description: Ze was brought to the operative suite placed in the supine position with a left foot prepped and draped in the usual sterile podiatric fashion. The great toe is grossly edematous, swollen with local signs of infection noted. Timeout was performed for safe surgery. Incisions were placed so as to remove 1 to 2 mm of skin from the dorsal incisional region running distally to the medial lateral sides of the nailbed ending at the distal tip of the great toe so as to remove the dorsal tissue and the bone the proximal and distal phalanges from the great toe. With a #15 scalpel and pickup soft tissue dissection around the distal phalanx was performed lifting the distal phalanx up out of the wound further dissecting proximally to remove the proximal phalanx from the wound bed as well. The bony segments were removed from the surgical field and sent to pathology for culture and evaluation. I debulked the flap sharp and bluntly as well as inspected the first metatarsal head floor of the first metatarsal and cavity. A little residual purulence was still noted at the plantar lateral aspect alongside the metatarsal head and this area was evacuated and debrided no sinus tracking was noted. A small erosion was seen at the dorsal medial aspect of the first metatarsal head with white crystalline material noted highly consistent with gout. This crystalline material was ga thered and sent in a dry container and sent to pathology to confirm uric acid crystals. Further debridement was performed reducing excess fatty tissue and there were no additional pathologic findings. Copious irrigation with normal saline was performed. I closed the most proximal aspect of the incision over the first metatarsal head with simple interrupted suture 3-0 nylon and packed the remainder of the wound with half-inch iodoform gauze packing tape. Gauze fluff compression dressings were applied and the tourniquet was released to 24 minutes vascularity returning immediately to all toes. Ze left the OR with vital signs stable vascular status intact. He will remain in-house for IV antibiotics and wound care. 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
[2021-07-15] MEDS: Insulin Aspart 300 UNITS/3 ML PEN SC ×3 (12:07→21:11)
[2021-07-15] MEDS: Ibuprofen 600 MG TAB PO (13:37)
--- NOTE | 2021-07-15 15:38 | W.PM.PROGNOT ---
Date of Service Date of service: 07/15/21 Time of Service: 15:38 Assessment and Plan Assessment and plan (1) Diabetic foot infection: Status: Acute Assessment and plan: S/P I&D/washout of toe infection on 07/13. Now s/p amputation of left great toe 07/15. Dr Haywood concerned about the appearance of the toe; MRI ordered to assess for osteomyelitis with the following findings: 1. Findings suspicious for osteomyelitis involving the head of the 1st metatarsal and the remaining it of the proximal phalanx of the great toe. 2. Interval resection of the base of the proximal phalanx of the great toe 3. Soft tissue defect along the dorsum of the great toe which may represent an ulcer. 4. Wall enhancing 1 x 0.5 cm fluid collection on the plantar surface of the great toe which may represent an abscess. 5. Edema and enhancement in the soft tissues along the medial aspect of the foot extending from the TMT joint to the great toe consistent with cellulitis. Plan is to assess wound tomorrow and Tuesday and possibly close the skin on Tuesday. Culture [employer] B strep. Will change antibiotic coverage to cefazolin. (2) Diabetes mellitus: Assessment and plan: Cover with SSI. Hold metformin Cont Jardiance. Adjust SS insulin to moderate scale. (3) HTN (hypertension): Assessment and plan: Continue spironoloactone and enalapril SBP in the 130-150's range. (4) GERD (gastroesophageal reflux disease): Status: Acute Assessment and plan: PPI. Provide antiemetics (5) DVT prophylaxis: Status: Acute Assessment and plan: SCDs (6) Discharge planning issues: Status: Acute Assessment and plan: Full code Planning wound care f/u with Dr Haywood after D/C. Subjective Subjective Patient reports: no new complaints and afebrile; denies shortness of breath Interval history since last seen: s/p amputation of left great to today. Sleeping. Exam Narrative Exam Narrative: General: asleep. Neurological: Moves all extremities spontaneously. Cardiovascular: RRR, no m/r/g Lungs: NIWB Extremities: L ankle/foot dressed - c/d/i. No edema. Objective Last Vital Signs Temp 36.6 C 07/15/21 11:35 Pulse 74 07/15/21 11:35 Resp 15 02/09/22 11:35 BP 111/74 07/15/21 11:35 Pulse Ox 95 07/15/21 11:35 Laboratory Results - last 24 hr 07/15/21 07/15/21 07/15/21 07:05 07:05 09:02 WBC 11.13 H RBC 4.94 Hgb 13.8 Hct 41.7 MCV 84.4 MCH 27.9 MCHC 33.1 RDW 12.4 Plt Count 315 MPV 8.4 Immature Gran % 0.0 Neutrophils % 65.0 Band Neutrophils % 4 Lymphocytes % 15.0 Atypical Lymphs % 7 Monocytes % 6.0 Eosinophils % 1.0 Basophils % 0.0 Metamyelocytes % 2 Nucleated RBC % 0 Absolute Neutrophils 7.68 H Absolute Lymphocytes 2.45 Absolute Monocytes 0.67 Absolute Eosinophils 0.11 Absolute Basophils 0.00 RBC Morphology Normal Sodium 137 Potassium 4.0 Chloride 100 Carbon Dioxide 27.0 Anion Gap 10.0 BUN 20 H Creatinine 1.0 Estimated GFR/1.73 m2 >= 60.00 Glucose 194 H Calcium 8.7 Vancomycin Trough 26.2 H* PAWSS Have you Been Recently Intoxicated or Drunk Within the Last 30 days?: No Have you Ever Experienced Previous Episodes of Alcohol Withdrawal?: No Have you ever Experienced Withdrawal Seizures?: No Have you ever Experienced Delirium Tremens(DT)s?: No Have you ever undergone Alcohol Rehabilitation Treatment (i.e, inpt ot outpatient treatment programs)?: No Have you ever Experienced Blackouts?: No Have you ever Combined Alcohol with other Downers within the last 90 days?: No Have you ever Combined Alcohol with any other Substance of Abuse during the last 90 days?: No Positive Blood Alcohol level on Presentation? [PCS.BAL]: No Evidence of Increased Autonomic Activity (i.e. HR>120, tremor, sweating, agitation, nausea)?: No Result: 0
[2021-07-15] MEDS: ceFAZolin 1 GM/50 ML BAG IVPB ×2 (15:58→21:08)
--- NOTE | 2021-07-15 17:28 | PHA.REVIEW ---
Pharmacy Admission Review - Admission Clinical Review (Last Reviewed 07/12/21 @ 08:34 by Kurtis Haywood DPM) GERD (gastroesophageal reflux disease) (Acute) Discharge planning issues (Acute) DVT prophylaxis (Acute) Dehydration (Acute) Diabetic foot infection (Acute) No Known Allergies Allergy (Unverified 07/11/21 18:01) Resuscitation Status Full Code Height 6 ft Weight 120.2 kg - Renal Dosing Renal Dosing: BUN 20 mg/dL (7-18) H 07/15/21 07:05 Creatinine 1.0 mg/dL (0.70-1.30) 07/15/21 07:05 Medications needing adjustments: Reviewed - Anticoagulation Anticoagulation: Hgb 13.8 g/dL (13.5-17.5) 07/15/21 07:05 Hct 41.7 % (40.0-50.0) 07/15/21 07:05 Plt Count 315 10^3/uL (130-400) 07/15/21 07:05 INR 1.1 (0.9-1.1) 07/12/21 06:08 Creatinine 1.0 mg/dL (0.70-1.30) 07/15/21 07:05 DVT Prophylaxis: N/A Therapeutic Anticoagulation: N/A (non-chemical ppx) - Opiate Usage Evaluate Pain Scale/Pains Meds: Reviewed (hydrocodone prn, using non-opiates so far) Scheduled Bowel Reg ordered if on Opiates?: No (docusate prn, will monito) - Relevant Labs ESR 38 mm/hr (0-15) H 07/11/21 19:35 Sodium 137 mmol/L (136-145) 07/15/21 07:05 Potassium 4.0 mmol/L (3.5-5.1) 07/15/21 07:05 Chloride 100 mmol/L (98-107) 07/15/21 07:05 Magnesium 1.8 mg/dL (1.8-2.4) 07/12/21 06:08 C-Reactive Protein 3.83 mg/dL (0.0-0.3) H 07/14/21 06:30 Electrolytes, C-Reactive P, ESR: Reviewed - DM Control DM Control: Glucose 194 mg/dL (74-106) H 07/15/21 07:05 Finger Stick Blood Glucose 216 Finger Stick Blood Glucose 183 Finger Stick Blood Glucose 183 Finger Stick Blood Glucose 183 Finger Stick Blood Glucose 184 Finger Stick Blood Glucose 184 Finger Stick Blood Glucose 184 Insulin Dosing: Reviewed (aspart per SS (takes metformin at home)) - Heart Failure/MD EF%, NANCY's, B-Blockers, Diuretics: N/A - BP Control BP Control: Blood Pressure 111/74 Blood Pressure 106/68 Blood Pressure 103/69 Blood Pressure 120/58 Blood Pressure 112/79 If elevated: Reviewed - Qtc Review If Elevated: N/A - IV to PO Switch IV Medications: Reviewed - Home Meds Relevent Home Meds Not ordered & why?: not ordered: enalapril, metformin (SS coverage ordered) - Current meds Current Medication Order Review: Reviewed (Hamzah andre today (started on 07/12) and changed to cefazolin 1 gram q6h)
[2021-07-15] MEDS: Gabapentin 300 MG CAP PO (21:07)
[2021-07-15] MEDS: Spironolactone 25 MG TAB PO (21:07)
[2021-07-15] MEDS: Allopurinol 300 MG TAB PO (21:07)
[2021-07-15] MEDS: Lisinopril 20 MG TAB 40 MG PO (21:07)
[2021-07-15] MEDS: Normal Saline 500 ML 30 ML IV (21:08)
[2021-07-15] MEDS: Cyclobenzaprine 10 MG TAB 5 MG PO (23:32)
[2021-07-16 03:10] VITALS: BP 118/72; PULSE 97; RESP 20; TEMP 37.7; O2SAT 92
[2021-07-16] MEDS: ceFAZolin 1 GM/50 ML BAG IVPB ×4 (03:32→22:23)
[2021-07-16 07:07] LABS: HCT 41.7 % (40.0-50.0); HGB 14.1 g/dL (13.5-17.5); MCH 28.4 pg (27.0-33.0); MCHC 33.8 % (32.0-36.0); MCV 84.1 fL (80-95); MPV 8.5 fL (8.0-11.0); Nucleated RBC 0 %; Platelet Count 330 10^3/uL (130-400); RBC 4.96 10^6/uL (4.36-5.78); RDW 12.4 % (11.8-14.1); RDW-SD 37.8 fL; WBC 13.15 10^3/uL (4.4-10.8)
[2021-07-16 07:32] LABS: Absolute Eosinophil Count 0.13 10^3/uL (0.0-0.7); Absolute Lymphocyte Count 2.89 10^3/uL (1.2-3.4); Absolute Monocyte Count 0.53 10^3/uL (0.1-0.8); Absolute Neutrophil Count 9.21 10^3/uL (1.2-6.7); Atypical Lymphocytes % 6; Bands % 2; Diff Comment Manual Differential; Metamyelocytes % 3; RBC Morphology Normal
--- NOTE | 2021-07-16 07:38 | W.ANESPOSTOP ---
Postoperative Evaluation Date, Time and Location Date Performed: 07/16/21 Time Performed: 07:39 Patient Location: Med/Surg Vital Signs Most Recent Imported Vital Signs: Most Recent Vital Signs Temp Pulse Resp BP Pulse Ox 37.7 C H 97 H 20 118/72 92 07/16/21 03:10 07/16/21 03:10 07/16/21 03:10 07/16/21 03:10 07/16/21 03:10 Most Recent Vital Signs Temp Pulse Resp BP Pulse Ox 36.5 C 85 18 137/80 98 07/12/21 09:34 07/12/21 09:34 07/12/21 09:34 07/12/21 09:34 07/12/21 09:34 Pain Score Most Recent Pain Score: Most Recent Pain Score Pain Level 0 07/15/21 16:45 Assessment Mental Status: Awake (Alert & Oriented to Patient Baseline) Airway and Respiratory Function: Patent airway with normal (patient baseline) respiratory exam Cardiovascular Function: Hemodynamically Stable Hydration Status: Adequately Hydrated Nausea & Vomiting: No Nausea or Vomiting Pain: Pt. Denies Any Pain Peripheral Nerve Block: Patient did not receive a nerve block
[2021-07-16 07:40] VITALS: BP 118/79; PULSE 94; RESP 17; TEMP 37.4; O2SAT 90
[2021-07-16] MEDS: Normal Saline Flush 10 ML SYR IVP (08:18)
[2021-07-16] MEDS: Spironolactone 25 MG TAB PO ×2 (08:19→22:24)
[2021-07-16] MEDS: Fenofibrate, Micronized 48 MG TAB PO (08:19)
[2021-07-16] MEDS: Pantoprazole 40 MG TABCR PO (08:19)
[2021-07-16] MEDS: Empaglifozin 10 MG TAB PO (08:19)
[2021-07-16] MEDS: levoFLOXacin 750 MG/150 ML BAG 100 MG IVPB (08:19)
[2021-07-16] MEDS: Insulin Aspart 300 UNITS/3 ML PEN SC ×3 (08:19→16:51)
[2021-07-16] MEDS: Ibuprofen 600 MG TAB PO (08:19)
[2021-07-16] MEDS: Magnesium Gluconate 500 MG TAB 250 MG PO (08:19)
--- NOTE | 2021-07-16 08:53 | PGE_ITS ---
Date of Service Date of service: 07/16/21 Time of Service: 08:57 Subjective Subjective Patient reports: no new complaints Exam Narrative Exam Narrative: Ze is seen at bedside resting comfortably eating his breakfast. He denies fevers, chills or feelings of malaise. He has no complaints of pain in his left foot. Morning labs are noted. Microbiology Gram stain noted. Awaiting identifications. Slight bump in his WBCs noted, he is afebrile likely due to surgical intervention, antibiotics, expected to be transient. Dressings are intact, bloody drainage as expected seen on the dressings. Utilizing aseptic technique, the dressings are removed. The wound appears much healthier with good granulation tissue seen at the base of the wound. Skin mitzi ins are all viable. Soft tissue swelling markedly reduced, no new areas of concern at this time. Impressions: Postop day #1 status post debridement with deboning/open amputation left hallux Plan: We will continue with current antibiotics, vancomycin and levofloxacin, soft tissue management consisting of irrigation of the wound followed by Adaptic, bulky normal saline wet-to-dry dressing every 12 hours. Anticipate primary closure once signs of infection have resolved. All questions were answered in detail. Objective Last Vital Signs Temp 37.4 C 07/16/21 07:40 Pulse 94 H 07/16/21 07:40 Resp 17 07/16/21 07:40 BP 118/79 07/16/21 07:40 Pulse Ox 90 L 07/16/21 07:40 Laboratory Results - last 24 hr 07/15/21 07/16/21 09:02 06:21 WBC 13.15 H RBC 4.96 Hgb 14.1 Hct 41.7 MCV 84.1 MCH 28.4 MCHC 33.8 RDW 12.4 Plt Count 330 MPV 8.5 Immature Gran % 0.0 Neutrophils % 68.0 Band Neutrophils % 2 Lymphocytes % 16.0 Atypical Lymphs % 6 Monocytes % 4.0 Eosinophils % 1.0 Basophils % 0.0 Metamyelocytes % 3 Nucleated RBC % 0 Absolute Neutrophils 9.21 H Absolute Lymphocytes 2.89 Absolute Monocytes 0.53 Absolute Eosinophils 0.13 Absolute Basophils 0.00 RBC Morphology Normal Vancomycin Trough 26.2 H* PAWSS Have you Been Recently Intoxicated or Drunk Within the Last 30 days?: No Have you Ever Experienced Previous Episodes of Alcohol Withdrawal?: No Have you ever Experienced Withdrawal Seizures?: No Have you ever Experienced Delirium Tremens(DT)s?: No Have you ever undergone Alcohol Rehabilitation Treatment (i.e, inpt ot outpatient treatment programs)?: No Have you ever Experienced Blackouts?: No Have you ever Combined Alcohol with other Downers within the last 90 days?: No Have you ever Combined Alcohol with any other Substance of Abuse during the last 90 days?: No Positive Blood Alcohol level on Presentation? [PCS.BAL]: No Evidence of Increased Autonomic Activity (i.e. HR>120, tremor, sweating, agitation, nausea)?: No Result: 0
--- NOTE | 2021-07-16 09:43 | W.PM.PROGNOT ---
Date of Service Date of service: 07/16/21 Time of Service: 09:43 Assessment and Plan Assessment and plan (1) Diabetic ulcer of foot associated with diabetes mellitus due to underlying condition, limited to breakdown of skin: Status: Acute Assessment and plan: now s/p amputation of left great toe 07/15. Dr Haywood concerned about the appearance of the toe; MRI ordered to assess for osteomyelitis with the following findings: 1. Findings suspicious for osteomyelitis involving the head of the 1st metatarsal and the remaining it of the proximal phalanx of the great toe. 2. Interval resection of the base of the proximal phalanx of the great toe 3. Soft tissue defect along the dorsum of the great toe which may represent an ulcer. 4. Wall enhancing 1 x 0.5 cm fluid collection on the plantar surface of the great toe which may represent an abscess. 5. Edema and enhancement in the soft tissues along the medial aspect of the foot extending from the TMT joint to the great toe consistent with cellulitis. Plan is to assess wound again on Tuesday and possibly close the skin on Tuesday or Tuesday Culture [employer] B strep. Added cefazolin. Cont Levaquin. WBC increased but likely d/t surgical intervention. ? (2) HTN (hypertension): Assessment and plan: BP controlled. Cont spironolactone and enalapril (3) Discharge planning issues: Status: Acute Assessment and plan: Once surgical wound is closed, planning home on extended course of oral antibiotics with wound care f/u with Dr Haywood. Subjective Subjective Patient reports: no new complaints, tolerating a regular diet and afebrile; denies shortness of breath Exam Narrative Exam Narrative: .Exam Narrative: General:? asleep.? Neurological:? Moves all extremities spontaneously. ? ? Cardiovascular: RRR, no m/r/g Lungs: NIWB Extremities: L ankle/foot dressed - c/d/i. No edema. Objective Last Vital Signs Temp 37.4 C 07/16/21 07:40 Pulse 94 H 07/16/21 07:40 Resp 17 07/16/21 07:40 BP 118/79 07/16/21 07:40 Pulse Ox 90 L 07/16/21 07:40 Laboratory Results - last 24 hr 07/16/21 06:21 WBC 13.15 H RBC 4.96 Hgb 14.1 Hct 41.7 MCV 84.1 MCH 28.4 MCHC 33.8 RDW 12.4 Plt Count 330 MPV 8.5 Immature Gran % 0.0 Neutrophils % 68.0 Band Neutrophils % 2 Lymphocytes % 16.0 Atypical Lymphs % 6 Monocytes % 4.0 Eosinophils % 1.0 Basophils % 0.0 Metamyelocytes % 3 Nucleated RBC % 0 Absolute Neutrophils 9.21 H Absolute Lymphocytes 2.89 Absolute Monocytes 0.53 Absolute Eosinophils 0.13 Absolute Basophils 0.00 RBC Morphology Normal PAWSS Have you Been Recently Intoxicated or Drunk Within the Last 30 days?: No Have you Ever Experienced Previous Episodes of Alcohol Withdrawal?: No Have you ever Experienced Withdrawal Seizures?: No Have you ever Experienced Delirium Tremens(DT)s?: No Have you ever undergone Alcohol Rehabilitation Treatment (i.e, inpt ot outpatient treatment programs)?: No Have you ever Experienced Blackouts?: No Have you ever Combined Alcohol with other Downers within the last 90 days?: No Have you ever Combined Alcohol with any other Substance of Abuse during the last 90 days?: No Positive Blood Alcohol level on Presentation? [PCS.BAL]: No Evidence of Increased Autonomic Activity (i.e. HR>120, tremor, sweating, agitation, nausea)?: No Result: 0
[2021-07-16 11:35] VITALS: BP 124/81; PULSE 86; RESP 18; TEMP 36.7; O2SAT 94
--- NOTE | 2021-07-16 13:07 | CMPROGNOTE_ITS ---
- If Service Date Differs Date of service: 07/16/21 Time of Service: 13:07 Care Management Progress Note S/O: Ze continues to be closely monitored, per MD anticipate he may be able to discharge home with a intermediate course of oral antibiotics. CM continues to follow. A: 45 year old male admitted to [facility] 07/11/20 for diabetic foot infection, s/p washout with Dr. Haywood P: Once surgical wound is closed, planning home on extended course of oral antibiotics with wound care f/u with Dr Haywood. He will follow up with his PCP, and discharge plan of care as directed. Ze will be transported home by his via private vehicle when ready. CM will continue to follow.
[2021-07-16] MEDS: Normal Saline 500 ML 30 ML IV (15:22)
[2021-07-16 16:10] VITALS: BP 124/79; PULSE 90; RESP 17; TEMP 37.1; O2SAT 97
[2021-07-16 19:35] VITALS: BP 133/88; PULSE 87; RESP 12; TEMP 37.2; O2SAT 95
[2021-07-16] MEDS: Allopurinol 300 MG TAB PO (22:23)
[2021-07-16] MEDS: Lisinopril 20 MG TAB 40 MG PO (22:24)
[2021-07-16] MEDS: Gabapentin 300 MG CAP PO (22:24)
[2021-07-16] MEDS: Cyclobenzaprine 10 MG TAB 5 MG PO (22:24)
[2021-07-16 22:54] VITALS: BP 128/86; PULSE 95; RESP 20; TEMP 37.3; O2SAT 94
[2021-07-17] MEDS: ceFAZolin 1 GM/50 ML BAG IVPB ×4 (03:05→21:44)
[2021-07-17] MEDS: Normal Saline Flush 10 ML SYR IVP ×3 (03:06→21:14)
[2021-07-17 03:13] VITALS: BP 107/78; PULSE 91; RESP 18; TEMP 37.3; O2SAT 93
[2021-07-17 06:54] LABS: Abs Immature Grans 0.43 10^3/uL (0.0-0.06); Absolute Eosinophil Count 0.16 10^3/uL (0.0-0.7); Absolute Lymphocyte Count 2.11 10^3/uL (1.2-3.4); Absolute Monocyte Count 0.95 10^3/uL (0.1-0.8); Absolute Neutrophil Count 8.26 10^3/uL (1.2-6.7); Basophils % 0.8; Eosinophils % 1.3; HCT 43.9 % (40.0-50.0); HGB 14.7 g/dL (13.5-17.5); Immature Grans % 3.6; Lymphocytes % 17.6; MCH 28.1 pg (27.0-33.0); MCHC 33.5 % (32.0-36.0); MCV 83.9 fL (80-95); MPV 8.3 fL (8.0-11.0); Monocytes % 7.9; Neutrophils % 68.8; Nucleated RBC 0 %; Platelet Count 306 10^3/uL (130-400); RBC 5.23 10^6/uL (4.36-5.78); RDW 12.4 % (11.8-14.1); RDW-SD 37.7 fL
[2021-07-17 07:22] VITALS: BP 122/74; PULSE 94; RESP 16; TEMP 36.7; O2SAT 95
[2021-07-17] MEDS: levoFLOXacin 750 MG/150 ML BAG 100 MG IVPB (08:51)
[2021-07-17] MEDS: Insulin Aspart 300 UNITS/3 ML PEN SC ×4 (08:52→21:14)
[2021-07-17] MEDS: Fenofibrate, Micronized 48 MG TAB PO (08:54)
[2021-07-17] MEDS: Spironolactone 25 MG TAB PO ×2 (08:54→21:14)
[2021-07-17] MEDS: Magnesium Gluconate 500 MG TAB 250 MG PO (08:54)
[2021-07-17] MEDS: Pantoprazole 40 MG TABCR PO (08:54)
[2021-07-17] MEDS: Empaglifozin 10 MG TAB PO (08:54)
--- NOTE | 2021-07-17 09:43 | W.PM.PROGNOT ---
Date of Service Date of service: 07/17/21 Time of Service: 09:44 Subjective Subjective Interval history since last seen: ni new complaints. Resting comfortably in bed. No c.o pain. Exam Narrative Exam Narrative: 2 days s/p debridement/deboning of the great toe. Dressings are removed from the left foot. No active signs of infection noted. Erythema and cellulitis have resolved. The edema has resolved. The packings were removed and the base of the wound appears healthy. Good granulation tissue is noted. No purulence identified. No areas of necrosis. Skin margins are viable. Microbiology identified strep B organisms, normal terrance. He has been on vancomycin and levofloxacin. The vancomycin has been switched discontinued and he is now on Ancef 1 g every 6h and levofloxacin daily. WBCs are trending downward. Morning labs were reviewed. He is afebrile. Impressions: Open amputation left hallux clinically improving Plan: Ze will be brought to the OR tomorrow for debridement and primary delayed closure of his wound left hallux. He understands risk and complications pertaining to wound dehiscence, pain scarring infection. The potential need for additional revisional procedures. No guarantees have been rendered no promises made to the final outcome of surgery. Informed consent is obtained. Objective Last Vital Signs Temp 36.7 C 07/17/21 07:22 Pulse 94 H 07/17/21 07:22 Resp 16 07/17/21 07:22 BP 122/74 07/17/21 07:22 Pulse Ox 95 07/17/21 07:22 Laboratory Results - last 24 hr 07/15/21 07/17/21 10:59 06:30 WBC 12.00 H RBC 5.23 Hgb 14.7 Hct 43.9 MCV 83.9 MCH 28.1 MCHC 33.5 RDW 12.4 Plt Count 306 MPV 8.3 Immature Gran % 3.6 Neutrophils % 68.8 Lymphocytes % 17.6 Monocytes % 7.9 Eosinophils % 1.3 Basophils % 0.8 Nucleated RBC % 0 Absolute Neutrophils 8.26 H Absolute Lymphocytes 2.11 Absolute Monocytes 0.95 H Absolute Eosinophils 0.16 Absolute Basophils 0.10 Fluid Crystals Cancelled Fluid Crystal Source Cancelled PAWSS Have you Been Recently Intoxicated or Drunk Within the Last 30 days?: No Have you Ever Experienced Previous Episodes of Alcohol Withdrawal?: No Have you ever Experienced Withdrawal Seizures?: No Have you ever Experienced Delirium Tremens(DT)s?: No Have you ever undergone Alcohol Rehabilitation Treatment (i.e, inpt ot outpatient treatment programs)?: No Have you ever Experienced Blackouts?: No Have you ever Combined Alcohol with other Downers within the last 90 days?: No Have you ever Combined Alcohol with any other Substance of Abuse during the last 90 days?: No Positive Blood Alcohol level on Presentation? [PCS.BAL]: No Evidence of Increased Autonomic Activity (i.e. HR>120, tremor, sweating, agitation, nausea)?: No Result: 0
[2021-07-17 11:49] VITALS: BP 144/78; PULSE 100; RESP 15; TEMP 36.8; O2SAT 97
--- NOTE | 2021-07-17 13:02 | PDOC.CMPRO ---
- If Service Date Differs Date of service: 07/17/21 Time of Service: 13:02 Care Management Progress Note S/O: Ze continues to be closely monitored, per MD anticipate he may be able to discharge home with a retirement course of oral antibiotics. CM continues to follow. A: 45 year old male admitted to [facility] 07/11/20 for diabetic foot infection, s/p washout with Dr. Haywood P: Once surgical wound is closed, planning home on extended course of oral antibiotics with wound care f/u with Dr Haywood. He will follow up with his PCP, and discharge plan of care as directed. Ze will be transported home by his via private vehicle when ready. CM will continue to follow.
--- NOTE | 2021-07-17 14:03 | PGE_ITS ---
Date of Service Date of service: 07/17/21 Time of Service: 14:04 Assessment and Plan Assessment and plan (1) Diabetic ulcer of foot associated with diabetes mellitus due to underlying condition, limited to breakdown of skin: Status: Acute Assessment and plan: now s/p amputation of left great toe 07/15. Dr Haywood concerned about the appearance of the toe; MRI ordered to assess for osteomyelitis with the following findings: 1. Findings suspicious for osteomyelitis involving the head of the 1st metatarsal and the remaining it of the proximal phalanx of the great toe. 2. Interval resection of the base of the proximal phalanx of the great toe 3. Soft tissue defect along the dorsum of the great toe which may represent an ulcer. 4. Wall enhancing 1 x 0.5 cm fluid collection on the plantar surface of the great toe which may represent an abscess. 5. Edema and enhancement in the soft tissues along the medial aspect of the foot extending from the TMT joint to the great toe consistent with cellulitis. Dr Haywood is pleased with the tissue that will close the wound and plans on performing that under local tomorrow / 07/18. Culture [employer] B strep. Added cefazolin. Cont Levaquin. WBC increased but likely d/t surgical intervention, now improved. ? (2) HTN (hypertension): Assessment and plan: BP controlled. Cont spironolactone and enalapril (3) Discharge planning issues: Status: Acute Assessment and plan: Once surgical wound is closed, planning home on extended course of oral antibiotics with wound care f/u with Dr Haywood. Subjective Subjective Patient reports: no new complaints, tolerating a regular diet and afebrile; denies shortness of breath Exam Narrative Exam Narrative: .Exam Narrative: General:? asleep.? Neurological:? Moves all extremities spontaneously. ? ? Cardiovascular: RRR, no m/r/g Lungs: NIWB Extremities: L ankle/foot dressed - c/d/i. No edema. Const General: cooperative, no acute distress and not ill appearing Orientation: alert, awake and oriented x3 HENMT Mouth: moist mucous membranes Eyes General: appearance normal, both eyes and all related structures Sclera: sclerae normal Resp Effort & Inspection: normal respiratory effort, able to speak in complete sentences and no respiratory distress Cardio Rate: regular rate Rhythm: regular rhythm Skin General skin exam: no rashes or lesions noted Neuro General: patient alert, patient awake, patient oriented x3, moves all extremities and no focal motor deficits Extrem Left lower extremity: foot (Bandages in place. ) Objective Last Vital Signs Temp 36.8 C 07/17/21 11:49 Pulse 100 H 07/17/21 11:49 Resp 15 07/17/21 11:49 BP 144/78 H 07/17/21 11:49 Pulse Ox 97 07/17/21 11:49 Laboratory Results - last 24 hr 07/15/21 07/17/21 10:59 06:30 WBC 12.00 H RBC 5.23 Hgb 14.7 Hct 43.9 MCV 83.9 MCH 28.1 MCHC 33.5 RDW 12.4 Plt Count 306 MPV 8.3 Immature Gran % 3.6 Neutrophils % 68.8 Lymphocytes % 17.6 Monocytes % 7.9 Eosinophils % 1.3 Basophils % 0.8 Nucleated RBC % 0 Absolute Neutrophils 8.26 H Absolute Lymphocytes 2.11 Absolute Monocytes 0.95 H Absolute Eosinophils 0.16 Absolute Basophils 0.10 Fluid Crystals Cancelled Fluid Crystal Source Cancelled PAWSS Have you Been Recently Intoxicated or Drunk Within the Last 30 days?: No Have you Ever Experienced Previous Episodes of Alcohol Withdrawal?: No Have you ever Experienced Withdrawal Seizures?: No Have you ever Experienced Delirium Tremens(DT)s?: No Have you ever undergone Alcohol Rehabilitation Treatment (i.e, inpt ot outpatient treatment programs)?: No Have you ever Experienced Blackouts?: No Have you ever Combined Alcohol with other Downers within the last 90 days?: No Have you ever Combined Alcohol with any other Substance of Abuse during the last 90 days?: No Positive Blood Alcohol level on Presentation? [PCS.BAL]: No Evidence of Increased Autonomic Activity (i.e. HR>120, tremor, sweating, agitat ion, nausea)?: No Result: 0
[2021-07-17 15:46] VITALS: BP 149/91; PULSE 103; RESP 18; TEMP 37.3; O2SAT 94
[2021-07-17 19:41] VITALS: BP 125/80; PULSE 96; RESP 16; TEMP 37.2; O2SAT 98
[2021-07-17] MEDS: Allopurinol 300 MG TAB PO (21:13)
[2021-07-17] MEDS: Lisinopril 20 MG TAB 40 MG PO (21:13)
[2021-07-17] MEDS: Gabapentin 300 MG CAP PO (21:14)
[2021-07-17] MEDS: Cyclobenzaprine 10 MG TAB 5 MG PO (22:26)
[2021-07-17 23:37] VITALS: BP 141/98; PULSE 92; RESP 20; TEMP 37; O2SAT 93
[2021-07-18] VITALS (8 sets, daily range): BP systolic 98–150; BP diastolic 60–85; PULSE 85–107; RESP 16–20; TEMP 36.5–37.1; O2SAT 92–98
[2021-07-18] MEDS: Normal Saline Flush 10 ML SYR IVP ×2 (04:23→21:55)
[2021-07-18] MEDS: ceFAZolin 1 GM/50 ML BAG IVPB ×4 (04:23→21:55)
[2021-07-18] MEDS: Normal Saline 1,000 ML 80 ML IV (04:23)
[2021-07-18 07:49] LABS: Abs Immature Grans 0.25 10^3/uL (0.0-0.06); Absolute Lymphocyte Count 2.12 10^3/uL (1.2-3.4); Absolute Neutrophil Count 8.68 10^3/uL (1.2-6.7); Basophils % 0.7; Eosinophils % 1.1; HGB 14.8 g/dL (13.5-17.5); Immature Grans % 2.1; Lymphocytes % 17.4; MCH 27.8 pg (27.0-33.0); MCHC 32.9 % (32.0-36.0); MCV 84.4 fL (80-95); MPV 8.4 fL (8.0-11.0); Monocytes % 7.5; Neutrophils % 71.2; Nucleated RBC 0 %; Platelet Count 290 10^3/uL (130-400); RBC 5.33 10^6/uL (4.36-5.78); RDW 12.4 % (11.8-14.1); RDW-SD 38.4 fL; WBC 12.19 10^3/uL (4.4-10.8)
[2021-07-18 08:00] LABS: Anion Gap 7.7 mmol/L (3-11); BUN 20 mg/dL (7-18); CO2 27.3 mmol/L (21.0-32.0); CREATININE 1.1 mg/dL (0.70-1.30); Calcium 9.2 mg/dL (8.5-10.1); Chloride 97 mmol/L (98-107); Glucose 178 mg/dL (74-106); Potassium 4.4 mmol/L (3.5-5.1); Sodium 132 mmol/L (136-145)
[2021-07-18 08:03] LABS: Absolute Basophil Count 0.09 10^3/uL (0.0-0.2); Absolute Eosinophil Count 0.13 10^3/uL (0.0-0.7); Absolute Monocyte Count 0.91 10^3/uL (0.1-0.8)
[2021-07-18] MEDS: Magnesium Gluconate 500 MG TAB 250 MG PO (08:12)
[2021-07-18] MEDS: Pantoprazole 40 MG TABCR PO (08:13)
[2021-07-18] MEDS: levoFLOXacin 750 MG/150 ML BAG 100 MG IVPB (08:16)
[2021-07-18] MEDS: Lidocaine 1% Multi-Dose 50 ML VIAL (09:20)
[2021-07-18] MEDS: Bupivacaine 0.5% Pres-Free 30 ML VIAL (09:20)
--- NOTE | 2021-07-18 09:59 | W.PM.OP ---
Date of service: 07/18/21 Time of Service: 09:59 Operative Note Operative Note DATE OF PROCEDURE: 07/12/21 PRE-OP DIAGNOSIS: Open amputation left hallux for osteomyelitis diabetic wound POST-OP DIAGNOSIS: same PROCEDURE: Debridement left hallux with delayed primary closure SURGEON: Kurtis Haywood Refer to Anesthesia Record ESTIMATED BLOOD LOSS: 5 PATHOLOGY: none sent TOURNIQUET TIME: 0 COMPLICATIONS: None Patient was transported to: floor Patient's condition: stable Indications: 45-year-old white male with chronic ulceration under the left first MPJ subsequently developed severe deep space infection with osteomyelitis of the hallux requiring multiple surgical interventions including recent I&D followed by debridement with deboning of the great toe. Signs and symptoms of infection have resolved and he is being brought back to the OR for delayed primary closure. He understands potential risk and complications of surgery to include pain, scarring, infection, failure to thrive with the potential for additional's her surgical interventions and further loss of tissue. No promises or guarantees have been provided. All questions have been answered in detail. Informed consent obtained. Procedure Description: Ze was brought to the operative suite placed in the supine position with the left foot prepped and draped in the usual sterile podiatric fashion. Timeout was performed for safe surgery. Evaluation of the wound revealed resolution of erythema, no cellulitis, no purulence identified within the wound. The base of the wound has good granulation. With a #15 scalpel approximately 1 mm of tissue was removed from the wound margins dorsally to freshen them up. The head of the first metatarsal is already covered over with soft tissue. Allis clamps was then applied to the distal flap edge and the flap reduced so as to afford appropriate tissue for primary closure. Upon resection of this excess tissue two arterial structures with active bleeding were encountered. These were clamped and electrodesiccated. Additional venous bleeding sites were electrodesiccated. The flaps were defatted so as to afford a gentle closure. The wound was copiously irrigated with normal saline. Once I was sure that all tissue appeared healthy and no pathologic tissue was left behind closure was started. The dorsum of the wound was closed with near far far near 3-0 nylon suture going distal and plantar. The suture was then interspersed with simple interrupted suture 4-0 nylon. The skin edges came together without stress, no signs of ischemia. The foot was washed with normal saline and dried. Xeroform, gauze fluff compression dressing applied. Ze left the OR with vital signs stable, vascular status intact. Sponge and sharp counts were correct. He will remain in-house for bedrest, IV antibiotics.
[2021-07-18] MEDS: Fenofibrate, Micronized 48 MG TAB PO (10:33)
[2021-07-18] MEDS: Spironolactone 25 MG TAB PO ×2 (10:33→21:55)
[2021-07-18] MEDS: Empaglifozin 10 MG TAB PO (10:33)
[2021-07-18] MEDS: Insulin Aspart 300 UNITS/3 ML PEN SC ×3 (12:26→22:02)
--- NOTE | 2021-07-18 13:56 | PGE_ITS ---
Date of Service Date of service: 07/18/21 Time of Service: 16:51 Assessment and Plan Assessment and plan (1) Diabetic ulcer of foot associated with diabetes mellitus due to underlying condition, limited to breakdown of skin: Status: Acute Assessment and plan: now s/p amputation of left great toe 07/15. and surgical closure today Dr Haywood concerned about the appearance of the toe; MRI ordered to assess for osteomyelitis with the following findings: 1. Findings suspicious for osteomyelitis involving the head of the 1st metatarsal and the remaining it of the proximal phalanx of the great toe. 2. Interval resection of the base of the proximal phalanx of the great toe 3. Soft tissue defect along the dorsum of the great toe which may represent an ulcer. 4. Wall enhancing 1 x 0.5 cm fluid collection on the plantar surface of the great toe which may represent an abscess. 5. Edema and enhancement in the soft tissues along the medial aspect of the foot extending from the TMT joint to the great toe consistent with cellulitis. Culture [employer] B strep. Added cefazolin. Cont Levaquin. will downstep tomorrow to augmentin and levaquin WBC increased but likely d/t surgical intervention, now improved. ? (2) HTN (hypertension): Assessment and plan: BP controlled. Cont spironolactone and enalapril (3) Discharge planning issues: Status: Acute Assessment and plan: Once surgical wound is closed, planning home on extended course of oral antibiotics with wound care f/u with Dr Haywood. plan discharge to home on Tuesday on oral antibiotics. plan discussed with Dr Castañeda Subjective Subjective Patient reports: no new complaints, tolerating liquids well, tolerating a regular diet and afebrile Exam Const General: cooperative, no acute distress and not ill appearing Orientation: alert, awake and oriented x3 HENAL Mouth: moist mucous membranes Eyes General: appearance normal, both eyes and all related structures Sclera: sclerae normal Resp Effort & Inspection: normal respiratory effort, able to speak in complete senten margaret and no respiratory distress Cardio Rate: regular rate Rhythm: regular rhythm Skin General skin exam: no rashes or lesions noted Neuro General: patient alert, patient awake, patient oriented x3, moves all extremities and no focal motor deficits Extrem Left lower extremity: foot (Bandages in place. ) Objective Last Vital Signs Temp 36.7 C 07/18/21 11:20 Pulse 106 H 07/18/21 11:20 Resp 18 07/18/21 11:20 BP 116/72 07/18/21 11:20 Pulse Ox 97 07/18/21 11:20 Laboratory Results - last 24 hr 07/18/21 07/18/21 07:30 07:30 WBC 12.19 H RBC 5.33 Hgb 14.8 Hct 45.0 MCV 84.4 MCH 27.8 MCHC 32.9 RDW 12.4 Plt Count 290 MPV 8.4 Immature Gran % 2.1 Neutrophils % 71.2 Lymphocytes % 17.4 Monocytes % 7.5 Eosinophils % 1.1 Basophils % 0.7 Nucleated RBC % 0 Absolute Neutrophils 8.68 H Absolute Lymphocytes 2.12 Absolute Monocytes 0.91 H Absolute Eosinophils 0.13 Absolute Basophils 0.09 Sodium 132 L Potassium 4.4 Chloride 97 L Carbon Dioxide 27.3 Anion Gap 7.7 BUN 20 H Creatinine 1.1 Estimated GFR/1.73 m2 >= 60.00 Glucose 178 H Calcium 9.2 PAWSS Have you Been Recently Intoxicated or Drunk Within the Last 30 days?: No Have you Ever Experienced Previous Episodes of Alcohol Withdrawal?: No Have you ever Experienced Withdrawal Seizures?: No Have you ever Experienced Delirium Tremens(DT)s?: No Have you ever undergone Alcohol Rehabilitation Treatment (i.e, inpt ot outpatient treatment programs)?: No Have you ever Experienced Blackouts?: No Have you ever Combined Alcohol with other Downers within the last 90 days?: No Have you ever Combined Alcohol with any other Substance of Abuse during the last 90 days?: No Positive Blood Alcohol level on Presentation? [PCS.BAL]: No Evidence of Increased Autonomic Activity (i.e. HR>120, tremor, sweating, agitation, nausea)?: No Result: 0
[2021-07-18] MEDS: Ibuprofen 600 MG TAB PO (16:13)
[2021-07-18] MEDS: Allopurinol 300 MG TAB PO (21:55)
[2021-07-18] MEDS: Lisinopril 20 MG TAB 40 MG PO (21:55)
[2021-07-18] MEDS: Cyclobenzaprine 10 MG TAB 5 MG PO (21:55)
[2021-07-18] MEDS: Gabapentin 300 MG CAP PO (21:55)
[2021-07-19 03:23] VITALS: BP 102/64; PULSE 89; RESP 18; TEMP 36.4; O2SAT 93
[2021-07-19] MEDS: Normal Saline Flush 10 ML SYR IVP ×3 (05:06→20:25)
[2021-07-19] MEDS: ceFAZolin 1 GM/50 ML BAG IVPB ×2 (05:06→09:21)
[2021-07-19 07:40] VITALS: BP 104/74; PULSE 90; RESP 16; TEMP 36.7; O2SAT 95
[2021-07-19] MEDS: Empaglifozin 10 MG TAB PO (07:47)
[2021-07-19] MEDS: Spironolactone 25 MG TAB PO ×2 (07:47→20:25)
[2021-07-19] MEDS: levoFLOXacin 750 MG/150 ML BAG 100 MG IVPB (07:47)
[2021-07-19] MEDS: Fenofibrate, Micronized 48 MG TAB PO (07:48)
[2021-07-19] MEDS: Magnesium Gluconate 500 MG TAB 250 MG PO (07:48)
[2021-07-19] MEDS: Pantoprazole 40 MG TABCR PO (07:48)
[2021-07-19] MEDS: Insulin Aspart 300 UNITS/3 ML PEN SC ×4 (08:03→22:35)
--- NOTE | 2021-07-19 11:38 | W.PM.PROGNOT ---
Date of Service Date of service: 07/19/21 Time of Service: 11:39 Assessment and Plan Assessment and plan (1) Diabetic ulcer of foot associated with diabetes mellitus due to underlying condition, limited to breakdown of skin: Status: Acute Assessment and plan: now s/p amputation of left great toe 07/15. and surgical closure yesterda Culture grewing Group B strep. On cefazolin and Levaquin. will downstep to augmentin and levaquin ? (2) HTN (hypertension): Assessment and plan: BP controlled. Cont spironolactone and enalapril (3) Discharge planning issues: Status: Acute Assessment and plan: planning home tomorrow on extended course of oral antibiotics with wound care f/u with Dr Haywood. plan discussed with Dr Castañeda Subjective Subjective Patient reports: no new complaints, tolerating liquids well, tolerating a regular diet and afebrile Interval history since last seen: blood sugars well controlled, no fevers, BM yesterday Exam Const General: cooperative Orientation: alert, awake and oriented x3 HENMT Mouth: moist mucous membranes Eyes General: appearance normal, both eyes and all related structures Resp Effort & Inspection: normal respiratory effort, able to speak in complete sentences and no respiratory distress Cardio Rate: regular rate Rhythm: regular rhythm Skin General skin exam: no rashes or lesions noted Neuro General: patient alert, patient awake, patient oriented x3, moves all extremities and no focal motor deficits Extrem Left lower extremity: foot (Bandages in place. ) Objective Last Vital Signs Temp 36.7 C 07/19/21 07:40 Pulse 90 07/19/21 07:40 Resp 16 07/19/21 07:40 BP 104/74 07/19/21 07:40 Pulse Ox 95 07/19/21 07:40 PAWSS Have you Been Recently Intoxicated or Drunk Within the Last 30 days?: No Have you Ever Experienced Previous Episodes of Alcohol Withdrawal?: No Have you ever Experienced Withdrawal Seizures?: No Have you ever Experienced Delirium Tremens(DT)s?: No Have you ever undergone Alcohol Rehabilitation Treatment (i.e, inpt ot outpatient treatment programs)?: No Have you ever Experienced Blackouts?: No Have you ever Combined Alcohol with other Downers within the last 90 days?: No Have you ever Combined Alcohol with any other Substance of Abuse during the last 90 days?: No Positive Blood Alcohol level on Presentation? [PCS.BAL]: No Evidence of Increased Autonomic Activity (i.e. HR>120, tremor, sweating, agitation, nausea)?: No Result: 0
[2021-07-19 11:50] VITALS: BP 121/81; PULSE 89; RESP 17; TEMP 37.5; O2SAT 96
[2021-07-19 15:45] VITALS: BP 119/77; PULSE 87; RESP 16; TEMP 37.1; O2SAT 97
[2021-07-19 20:16] VITALS: BP 125/76; PULSE 98; RESP 16; TEMP 36.5; O2SAT 96
[2021-07-19] MEDS: Amoxicillin 875/Clav. 125 TAB PO (20:25)
[2021-07-19] MEDS: Ibuprofen 600 MG TAB PO (22:37)
[2021-07-19] MEDS: Allopurinol 300 MG TAB PO (22:38)
[2021-07-19] MEDS: Lisinopril 20 MG TAB 40 MG PO (22:38)
[2021-07-19] MEDS: Gabapentin 300 MG CAP PO (22:38)
[2021-07-19 23:24] VITALS: BP 132/84; PULSE 100; RESP 18; TEMP 36.6; O2SAT 96
[2021-07-20 03:20] VITALS: BP 125/75; PULSE 75; RESP 16; TEMP 36.6; O2SAT 98
[2021-07-20 07:58] VITALS: BP 116/74; PULSE 90; RESP 16; TEMP 36.9; O2SAT 96
--- NOTE | 2021-07-20 08:01 | W.PM.PROGNOT ---
Date of Service Date of service: 07/20/21 Time of Service: 08:01 Subjective Subjective Interval history since last seen: Resting comfortably in bed. No complaints of pain or discomfort. Looking forward to being discharged going home. Exam Narrative Exam Narrative: 2 days status post delayed primary closure amputation left hallux. Patient is doing well. Has no complaints, no fevers chills no discomfort. Dressings are removed. Incision is clean and dry. Sutures are well maintained. Skin margins are viable. There is no visible signs of infection. No erythema, no edema. Impression: 48 hours status post delayed primary closure left hallux amputation Plan: Ze is medically and surgically stable and can be discharged to home today. I am recommending 4 weeks of p.o. Augmentin 875 twice daily and Levaquin 750 mg daily for 4 weeks. Ze is aware that he is to wear the surgical shoe whenever the foot is in contact with the ground. He knows to reduce his usual activities to allow the amputation site to heal. He will be followed by myself in the office on He is aware that if he experiences, fever, increasing blood sugars to contact the office for wound evaluation and ongoing care. Objective Last Vital Signs Temp 36.9 C 07/20/21 07:58 Pulse 90 07/20/21 07:58 Resp 16 07/20/21 07:58 BP 116/74 07/20/21 07:58 Pulse Ox 96 07/20/21 07:58 PAWSS Have you Been Recently Intoxicated or Drunk Within the Last 30 days?: No Have you Ever Experienced Previous Episodes of Alcohol Withdrawal?: No Have you ever Experienced Withdrawal Seizures?: No Have you ever Experienced Delirium Tremens(DT)s?: No Have you ever undergone Alcohol Rehabilitation Treatment (i.e, inpt ot outpatient treatment programs)?: No Have you ever Experienced Blackouts?: No Have you ever Combined Alcohol with other Downers within the last 90 days?: No Have you ever Combined Alcohol with any other Substance of Abuse during the last 90 days?: No Positive Blood Alcohol level on Presentation? [PCS.BAL]: No Evidence of Increased Autonomic Activity (i.e. HR>120, tremor, sweating, agitation, nausea)?: No Result: 0
[2021-07-20] MEDS: Magnesium Gluconate 500 MG TAB 250 MG PO (08:20)
[2021-07-20] MEDS: Fenofibrate, Micronized 48 MG TAB PO (08:20)
[2021-07-20] MEDS: Insulin Aspart 300 UNITS/3 ML PEN SC (08:21)
[2021-07-20] MEDS: Pantoprazole 40 MG TABCR PO (08:21)
[2021-07-20] MEDS: Spironolactone 25 MG TAB PO (08:21)
[2021-07-20] MEDS: Empaglifozin 10 MG TAB PO (08:21)
[2021-07-20] MEDS: Amoxicillin 875/Clav. 125 TAB PO (08:21)
[2021-07-20] MEDS: levoFLOXacin 500 MG, levoFLOXacin 250 MG 750 MG PO (08:21)
--- NOTE | 2021-07-20 08:46 | W.PM.DS.N ---
Date of service: 07/20/21 Time of Service: 08:46 DS: Diagnosis Discharge Diagnosis (1) Diabetic ulcer of foot associated with diabetes mellitus due to underlying condition, limited to breakdown of skin: Status: Acute (2) HTN (hypertension): Discharge Plan Disposition Patient Disposition: HOME Condition: Stable Discharge Details Reason For Visit: Diabetic Foot Infection Admit Date/Time: 07/11/21 21:02 Admit Provider: Esmer Castañeda Attending Provider: Esmer Castañeda Primary Care Provider: Payam Mejia Hospital Course Hospital Course: This is a 45 year old male with diabetes type 2 with neuropathy, 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 by Dr Larson on 05/15/21 (uncomplicated), who presented to the ED with c/o redness and swelling to left great toe. His CT of the left foot shows marked soft tissue swelling in the great toe and medial forefoot without definite osteomyelitis. Dr Larson was consulted and recommended starting the patient on vancomycin/levofloxacin with an admission to the hospitalist service with plans for OR for amputation. He underwent amputation on Jul 12 with no post-operative complications. He remained hospitalized on IV antibtiotics, cultures grew group B strep. He then went back to OR for closure of his wound. no issues postoperatively again. He was eating and drinking, hemodynamically stable. no pain. Dr larson to do all dressing changes. He needs 4 weeks of oral antibiotics at discharge and will see Dr Larson outpatient. Home with no new services at discharge discharge discussed with Dr Castañeda Home Meds and New Rx's Prescriptions: New levofloxacin 750 mg Tablet 750 mg PO QAM Qty: 28 0RF amoxicillin-pot clavulanate 875-125 mg Tablet 1 tab PO BID Qty: 56 0RF Continued enalapril maleate 20 MG tablet 1 tab PO HS 0RF metformin 500 mg Tablet 1,000 mg PO BID 0RF spironolactone 25 mg Tablet 25 mg PO BID 0RF Jardiance 10 mg Tablet 10 mg PO DAILY 0RF magnesium 250 mg Tablet 250 mg PO DAILY 0RF fenofibrate nanocrystallized 48 mg Tablet 48 mg PO DAILY 0RF ibuprofen 600 mg tablet 600 mg PO Q6H PRN (Reason: pain and inflammation) Qty: 60 0RF acetaminophen 500 mg Capsule 1,000 mg PO Q6H PRN0RF gabapentin 300 mg Tablet 300 mg PO QHS 0RF allopurinol 300 mg Tablet 300 mg PO DAILY 0RF Discharge Instructions Instructions: Toe Amputation (DC) Additional Instructions: wear post op shoe when ambulating keep dressing clean and dry Stand Alone Forms: Nursing Discharge Form Referrals: Kurtis Larson DPM [[facility] STAFF PHYSICIAN] - 07/23/21 9:15 am Activity:: Activity as Tolerated Equipment/Supplies:: No Equipment Needed Diet:: Carb Counting Discharge Orders Discharge Orders: Discharge Order (Routine); Ordered 07/20/21 Ordered By: Deedee Gonzalez Discharge Data Discharge Date/Time-TO BE ENTERED AT DEPARTURE: 07/20/21 10:21 DS: Summary Time Spent with Patient providing and/or coordinating discharge services: Less than 30 minutes Status at Discharge Functional status at discharge: independent ambulation Overall status at discharge: patient is not back to baseline Mental Status: mental status grossly normal Speech and Movement: speech and movement normal Mood: congruent mood Affect: normal affect Exam Const General: cooperative, no acute distress and not ill appearing Orientation: alert, awake and oriented x3 HENMT Mouth: moist mucous membranes Eyes General: appearance normal, both eyes and all related structures Sclera: sclerae normal Resp Effort & Inspection: normal respiratory effort, able to speak in complete sentences and no respiratory distress Cardio Rate: regular rate Rhythm: regular rhythm Skin General skin exam: no rashes or lesions noted Neuro General: patient alert, patient awake, patient oriented x3, moves all extremities and no focal motor deficits Extrem Left lower extremity: foot (Bandages in place. ) Psych Mental Status: mental status grossly normal Speech and Movement: speech and movement normal Mood: congruent mood Affect: normal affect DS: Data Vitals/I&O Vitals and I&O: Vital Signs Temperature 36.9 C 07/20/21 07:58 Temperature Source Tympanic 07/20/21 07:58 Pulse 90 07/20/21 07:58 Pulse Rhythm Regular 07/20/21 04:49 Respiratory Rate 16 07/20/21 07:58 Respiratory Effort 07/20/21 04:49 Respiratory Depth Normal 07/20/21 04:49 Respiratory Pattern Normal 07/20/21 04:49 Blood Pressure 116/74 07/20/21 07:58 Blood Pressure Position Supine 07/11/21 17:52 Pulse Oximetry 96 07/20/21 07:58 Oxygen Delivery Method Room Air 07/20/21 07:58 Oxygen Flow Rate 0 07/20/21 07:58 Pain Level 0 07/20/21 07:58 Comment 07/18/21 03:47 Intake & Output 07/19/21 07/19/21 07/20/21 11:59 23:59 11:59 Intake Total 670 / 670 Balance 670 / 670 Weight 119.748 kg Intake: IV 210 / 210 Oral 460 / 460 Other: Urine Appearance Clear Clear Clear Comment pt reports voiding in toilet this am without difficulty voiding independently Up to void IND. Voiding Methods Toilet Toilet Data Completed and Pending Labs on day of discharge: 07/15/21 10:51 Toe - Left First Digit Anaerobic Culture - Pending Preliminary micro results at discharge 07/15/21 10:51 Surgical Culture - Preliminary Toe - Left First Digit Gram Positive Marli,Mixed 07/15/21 10:51 Anaerobic Culture - Pending Toe - Left First Digit PFSH All Active Problems GERD (gastroesophageal reflux disease) (Acute) Discharge planning issues (Acute) DVT prophylaxis (Acute) Dehydration (Acute) Diabetic foot infection (Acute) Hallux limitus of left foot (Acute) Diabetic ulcer of foot associated with diabetes mellitus due to underlying condition, limited to breakdown of skin (Acute) Medical History Cardiomyopathy LVEF 61% by echo in 07/2018, up from 23% in 10/2015. (Dr. Melvin) Diabetes mellitus Gout HTN (hypertension) Obesity (BMI 30-39.9) Surgical History H/O adenoidectomy History of bunionectomy of left great toe Hx of circumcision 05/13/21 Family History Mother Hypertension Social History Smoking/Tobacco Use Status: Former Tobacco Use Quit Date: 06/06/02 Smoking risk assessment performed?: Yes Alcohol Intake: current Alcohol Intake frequency: a few times a month Alcohol type: beer Drug use: Never Substance use type: does not use Do you feel safe at home: Yes Do you feel safe in your relationship?: Yes
--- NOTE | 2021-07-20 08:51 | PDOC.CMDIS ---
- If Service Date Differs Date of service: 07/20/21 Time of Service: 08:51 LACE Index Scoring Tool - Questions: Length of Stay (in days): 7 - 13 Acuity (Admit via E.D.?): Yes Comorbidities: Diabetes w/o Complication E.D. Visits: 1 - Answers: Total Score: 10 Risk of Readmission: High Risk Care Management Discharge Reason for Hospitalization: Diabetic foot infection. Discharge Plan: Ze will return home on an extended course of oral antibiotics with wound care f/u with Dr Haywood. He will follow up with his PCP, and discharge plan of care as directed. Ze will be transported home by his via private vehicle when ready. Patient/Family Education Needs: Review discharge instructions, discuss Ask Me Three.
== END 2021-07-20 10:21 | disposition home or self-care (01) | DRG 617 ==
LOC: ER 21:32 → MS 22:11
PROVIDERS: Family Medicine; Podiatrist; Admitting Provider Internal Medicine; Emergency Provider Nurse Practitioner Family; PCP Internal Medicine; Visit Provider Internal Medicine
PROC: 0J9R0ZZ Drainage of Left Foot Subcutaneous Tissue and Fascia, Open Approach (ICD-10-PCS; CPT 10061; principal; 2021-07-12 08:00)
PROC: 0Y6Q0Z0 Detachment at Left 1st Toe, Complete, Open Approach (ICD-10-PCS; CPT 28820; principal; 2021-07-15 10:15)
PROC: 0HQNXZZ Repair Left Foot Skin, External Approach (ICD-10-PCS; CPT 12020; principal; 2021-07-18 09:00)
DX: E11.621 Type 2 diabetes mellitus with foot ulcer (principal); L02.612 Cutaneous abscess of left foot; I42.9 Cardiomyopathy, unspecified; M86.172 Other acute osteomyelitis, left ankle and foot; L97.421 Non-pressure chronic ulcer of left heel and midfoot limited to breakdown of skin; E11.42 Type 2 diabetes mellitus with diabetic polyneuropathy; K21.9 Gastro-esophageal reflux disease without esophagitis; E86.0 Dehydration; I10 Essential (primary) hypertension; E66.9 Obesity, unspecified; Z68.35 Body mass index [BMI] 35.0-35.9, adult; E11.69 Type 2 diabetes mellitus with other specified complication; E78.5 Hyperlipidemia, unspecified; B95.1 Streptococcus, group B, as the cause of diseases classified elsewhere; M1A.9XX1 Chronic gout, unspecified, with tophus (tophi)
CPT/HCPCS: 10061; 28820; 12020; 36415; 80048; 80053; 85652; 87040; 87077; 87635; 88300; 88305; 96365; 99285; 73700; 73720; 80202; 83735; 85025; 85610; 86140; 87070; 87075; 87205; 88304; 88311; 89060; 99223; 99232; 99233; 99238; J0690; J1956; J2001; J2250; J2405; J2704

== ENCOUNTER 2021-08-05 01:57 | Outpatient (CLI) | payer BC, SELFPAY ==
[2021-08-05 15:10] LABS: Abs Immature Grans 0.05 10^3/uL (0.0-0.06); Absolute Basophil Count 0.08 10^3/uL (0.0-0.2); Absolute Eosinophil Count 0.36 10^3/uL (0.0-0.7); Absolute Lymphocyte Count 1.57 10^3/uL (1.2-3.4); Absolute Monocyte Count 0.64 10^3/uL (0.1-0.8); Absolute Neutrophil Count 4.87 10^3/uL (1.2-6.7); Basophils % 1.1; Eosinophils % 4.8; HCT 40.5 % (40.0-50.0); HGB 13.4 g/dL (13.5-17.5); Immature Grans % 0.7; Lymphocytes % 20.7; MCH 28.2 pg (27.0-33.0); MCHC 33.1 % (32.0-36.0); MCV 85.1 fL (80-95); MPV 8.3 fL (8.0-11.0); Monocytes % 8.5; Neutrophils % 64.2; Nucleated RBC 0 %; Platelet Count 247 10^3/uL (130-400); RBC 4.76 10^6/uL (4.36-5.78); RDW 12.6 % (11.8-14.1); RDW-SD 39.1 fL; WBC 7.57 10^3/uL (4.4-10.8)
[2021-08-05 15:11] LABS: ESR 16 mm/hr (0-15)
[2021-08-05 16:19] LABS: BUN 22 mg/dL (7-18); C-Reactive Protein 0.58 mg/dL (0.0-0.3)
== END 2021-08-05 01:58 | disposition home or self-care (01) ==
LOC: LBO 01:57
PROVIDERS: PCP Internal Medicine; Visit Provider Podiatrist
DX: M86.9 Osteomyelitis, unspecified (principal)
CPT/HCPCS: 36415; 84520; 85652; 85025; 86140

== ENCOUNTER → 2021-08-07 00:44 | Outpatient (CLI) | payer BC, SELFPAY ==
--- NOTE | 2021-08-07 | DI.MRI_ITS ---
Exam(s) MR LOWER EXTREMITY LT WO/W EXAM: MR LOWER EXTREMITY LT WO/W CLINICAL HISTORY: OSTEOMYELITIS 1ST METATARSAL/SESAMOIDS. TECHNIQUE: Multiplanar multisequence MRI was performed. CONTRAST MATERIAL: IV Contrast: 20 mL of Dotarem contrast administered. COMPARISON: Priors available for comparison. FINDINGS: BONES/JOINTS: Since the prior examination there has been amputation of the proximal and distal phalan ges of the great toe. There is increased marrow edema seen in the 1st metatarsal bone. There is als o now diffuse edema seen on the T2 weighted images in the sesamoid adjacent to the head of the 1st me tatarsal bone. There is also mild edema now seen in the head of the 2nd metatarsal. MUSCULOTENDINOUS STRUCTURES: Visualized portion of the planar fascia is unremarkable. The visualized intrinsic muscles and tendons of the foot are unremarkable. SOFT TISSUES: There is edema seen in the soft tissues around the great toe. There is a fluid collect ion seen in the dorsal soft tissues adjacent to the 1st metatarsal head. It measures 2.5 x 1.2 x 0.9 cm. There is an enhancing wall present. There is also a small thin fluid collection on the plantar surface of the foot adjacent to the 1st metatarsal head. It measures 3.4 x 1.6 cm. These may repre sent small abscesses. ENHANCEMENT: The areas of hyperintense T2 signal in the 1st metatarsal bone, the sesamoid and the hea d of the 2nd metatarsal all show enhancement following contrast administration. OTHER FINDINGS: None. IMPRESSION: 1. Interval amputation of the proximal distal phalanges of the great toe. 2. Marrow edema and enhancement involving the 1st metatarsal bone, the sesamoid adjacent to the head of the 1st metatarsal bone and the head of the 2nd metatarsal bone. While this may be reactive relat ed to the surgery, infection cannot be excluded. 3. Two small fluid collections adjacent to the head of the 1st metatarsal bone. These may represent small abscesses. 4. Results of this exam have been verbally communicated with provider. DATA REPOSITORY:
[2021-08-07] MEDS: Gadoterate meglumine 20 ML VIAL 10 ML IVP (11:46)
[2021-08-07] MEDS: Normal Saline Flush 10 ML SYR IVP (11:47)
== END ==
PROVIDERS: PCP Internal Medicine; Visit Provider Podiatrist
DX: M86.9 Osteomyelitis, unspecified (principal); R93.6 Abnormal findings on diagnostic imaging of limbs
CPT/HCPCS: 73720

== ENCOUNTER 2022-11-26 14:56 | Outpatient (REF) | payer BC, SELFPAY | END 2022-11-26 14:57 | disposition home or self-care (01) | LOC: LBN 14:56 | PROVIDERS: PCP Internal Medicine; Visit Provider Podiatrist | DX: E11.621 Type 2 diabetes mellitus with foot ulcer; E11.628 Type 2 diabetes mellitus with other skin complications; I70.245 Atherosclerosis of native arteries of left leg with ulceration of other part of foot; L08.9 Local infection of the skin and subcutaneous tissue, unspecified; L97.501 Non-pressure chronic ulcer of other part of unspecified foot limited to breakdown of skin | CPT/HCPCS: 87077; 87070; 87075; 87186; 87205 ==

== ENCOUNTER 2022-11-26 16:18 | Outpatient (CLI) | payer BC, SELFPAY ==
--- NOTE | 2022-11-26 14:45 | DI.RAD_ITS ---
Exam(s) XR FOOT LT COMPLETE EXAM: XR FOOT LT COMPLETE CLINICAL HISTORY: Cellulitis of lt toe,L03.032;atherosclerosis lt leg [place] arteries,I70.245. TECHNIQUE: 2D digital imaging was performed of the left foot. Images were obtained. AP, oblique a nd lateral views were obtained. COMPARISON: MR MR LOWER EXTREMITY LT WO/W from 08/07/2021 FINDINGS: BONES: No acute fracture is present. No bony destructive lesion is seen. The patient has had a prior amputation of the great toe to the level of the MTP joint. There has been interval loss of volume of the head of the 3rd metatarsal. This can be seen with avascular necrosis. No fracture is associate d. JOINTS: No dislocation present. SOFT TISSUE: There is a 4 mm linear foreign body in the soft tissues of the plantar surface of the 4t h toe. There is soft tissue swelling of the 4th toe. Atherosclerosis is present. There is soft tis sharon swelling of the foot particularly the plantar surface. IMPRESSION: 1. 4 mm linear foreign body in the soft tissues on the plantar surface of the foot at the level of th e 4th toe. 2. Diffuse soft tissue swelling of the foot particularly the distal foot. 3. No radiographic evidence of osteomyelitis of the 4th toe. 4. Loss of volume of the head of the 3rd toe. This can be seen with avascular necrosis. DATA REPOSITORY: RADIATION DOSE DELIVERED:
== END 2022-11-26 16:38 ==
PROVIDERS: PCP Internal Medicine; Visit Provider Podiatrist
DX: E11.621 Type 2 diabetes mellitus with foot ulcer (principal); I70.245 Atherosclerosis of native arteries of left leg with ulceration of other part of foot; L03.032 Cellulitis of left toe; L97.509 Non-pressure chronic ulcer of other part of unspecified foot with unspecified severity
CPT/HCPCS: 73630

== ENCOUNTER 2022-11-30 09:18 | Outpatient (REF) | payer BC, SELFPAY ==
[2022-11-30 09:52] LABS: C-Reactive Protein 4.18 mg/dL (0.0-0.3)
[2022-11-30 10:34] LABS: Hemoglobin A1C 8.2 % (<5.7)
== END 2022-11-30 09:19 | disposition home or self-care (01) ==
LOC: LBN 09:18
PROVIDERS: PCP Internal Medicine; Visit Provider Surgery
DX: E11.621 Type 2 diabetes mellitus with foot ulcer (principal); L97.509 Non-pressure chronic ulcer of other part of unspecified foot with unspecified severity
CPT/HCPCS: 83036; 86140

== ENCOUNTER 2022-12-02 10:15 | Inpatient (IN) | payer BC, SELFPAY ==
[2022-12-02] VITALS (9 sets, daily range): BP systolic 119–148; BP diastolic 71–89; PULSE 80–89; RESP 17–20; TEMP 36.2–37.8; O2SAT 95–98; BMI 37.3
--- NOTE | 2022-12-02 11:15 | DI.RAD_ITS ---
Exam(s) XR TOE LT FOURTH EXAM: XR TOE LT FOURTH CLINICAL HISTORY: 4th toe infection. TECHNIQUE: 2D digital imaging was performed. Three views. COMPARISON: CT CT LOWER EXTREMITY LT WO from 07/11/2021 MR MR LOWER EXTREMITY LT WO/W from 07/14/2021 CR XR FOOT LT COMPLETE from 11/26/2022 FINDINGS: BONES: No acute fracture is present. No bony destructive lesion is seen. Flattening of the 3rd meta tarsal head again noted. JOINTS: No dislocation present. SOFT TISSUE: Linear foreign body again noted in the plantar soft tissues at the level of the proxima l phalanx of the 4th toe. Marked swelling of the 4th toe. IMPRESSION: Soft tissue swelling. No change in foreign body. No bony destruction. DATA REPOSITORY: RADIATION DOSE DELIVERED:
[2022-12-02 11:30] LABS: Lactate 1.2 mmol/L (0.6-1.4)
[2022-12-02 11:33] LABS: Abs Immature Grans 0.04 10^3/uL (0.0-0.06); Absolute Basophil Count 0.05 10^3/uL (0.0-0.2); Absolute Lymphocyte Count 1.08 10^3/uL (1.2-3.4); Absolute Monocyte Count 1.13 10^3/uL (0.1-0.8); Basophils % 0.5; HCT 43.3 % (40.0-50.0); HGB 14.5 g/dL (13.5-17.5); Immature Grans % 0.4; Lymphocytes % 11.3; MCH 27.4 pg (27.0-33.0); MCHC 33.5 % (32.0-36.0); MCV 82 fL (80-95); MPV 8.4 fL (8.0-11.0); Monocytes % 11.8; Platelet Count 294 10^3/uL (130-400); RBC 5.29 10^6/uL (4.36-5.78); RDW 13.1 % (11.8-14.1); RDW-SD 39.1 fL
[2022-12-02 12:00] LABS: ALT 38 U/L (16-63); AST 25 U/L (15-37); Albumin 3.7 g/dL (3.4-5.0); Alkaline Phosphatase 60 U/L (46-116); Anion Gap 13.6 mmol/L (3-11); BUN 19 mg/dL (7-18); Bilirubin, Total 0.6 mg/dL (0.2-1.0); C-Reactive Protein 7.01 mg/dL (0.0-0.3); CO2 25.4 mmol/L (21.0-32.0); CREATININE 1.1 mg/dL (0.70-1.30); Calcium 8.9 mg/dL (8.5-10.1); Chloride 97 mmol/L (98-107); Estimated GFR 82.29 (mL/min/1.73m2); Glucose 168 mg/dL (74-106); Sodium 136 mmol/L (136-145); Total Protein 8.6 g/dL (6.4-8.2)
--- NOTE | 2022-12-02 12:08 | ED.GENADUL_ITS ---
Discharge Plan Disposition Patient Disposition: Admit to [facility] Condition: Stable Discharge Details Clinical Impression: Cellulitis of left toe, Diabetes mellitus, Hallux limitus of left foot Admit Date/Time: 12/02/22 13:42 Admit Provider: Long Caputo Attending Provider: Long Caputo Primary Care Provider: Payam Mejia ED Provider: Bethany Mcgrath Discharge Data Discharge Date/Time-TO BE ENTERED AT DEPARTURE: 12/02/22 13:58 Medical Decision Making This 47-year-old male presents with report of infection to left fourth digit with worsening pain and spreading redness. He is alert and oriented, he is otherwise nontoxic in appearance, his distal pulses are intact X-ray was ordered for evaluated patient as obvious osteomyelitis, this does not show significant bony disruption CRP 7, mildly elevated, lactate negative, blood cultures pending, case discussed with Dr. Connelly, surgery who will take the patient for debridement Case discussed with Dr. Mcclellan, hospitalist who will admit patient Vanco and Zosyn were initiated for diabetic toe infection Agreeable to admission at this time HPI General Date/Time Provider Initiated Documentation: 12/02/22 11:10 . HPI Narrative: This 47-year-old male with a history of diabetes, hypertension, gout, GERD, cardiomyopathy presents for cellulitis to his left fourth toe which she noticed this morning. An ulceration evaluated by podiatry with debridement last week by surgery. Denies any fever or chills today. Related Data Home Medications Medication Instructions Recorded Confirmed empagliflozin 10 mg tablet 25 mg PO DAILY 05/13/21 12/02/22 (Jardiance) metformin 500 mg tablet 1,000 mg PO BID 05/13/21 12/02/22 spironolactone 25 mg tablet 25 mg PO BID 05/13/21 12/02/22 fenofibrate nanocrystallized 48 mg 48 mg PO DAILY 05/15/21 12/02/22 tablet ibuprofen 600 mg tablet 600 mg PO Q6H PRN pain and 05/15/21 12/02/22 inflammation #60 tabs magnesium 250 mg tablet 250 mg PO DAILY 05/15/21 12/02/22 acetaminophen 500 mg capsule 1,000 mg PO Q6H PRN 07/11/21 12/02/22 allopurinol 300 mg tablet 300 mg PO DAILY 02/05/22 06/29/23 gabapentin 300 mg tablet 300 mg PO QHS 07/11/21 12/02/22 enalapril maleate 20 mg tablet 20 mg PO HS 02/09/22 12/02/22 mupirocin 2 % topical ointment 1 applic topical BID 02/09/22 11/30/22 ciprofloxacin HCl 500 mg tablet 500 mg PO BID #28 tabs 11/26/22 12/02/22 Previous Rx's Medication Instructions Recorded ibuprofen 600 mg tablet 600 mg PO Q6H PRN pain and 05/15/21 inflammation #60 tabs ciprofloxacin HCl 500 mg tablet 500 mg PO BID #28 tabs 11/26/22 Allergies Allergy/AdvReac Type Severity Reaction Status Date / Time No Known Allergies Allergy Verified 12/02/22 10:21 General Stated Complaint: Cellulitis FREDRICK: 3 PFSH All Active Problems (Updated 12/03/22 @ 13:46 by DARI Mcpherson) Discharge planning issues (Acute) DVT prophylaxis (Acute) Diabetes mellitus type 2 in obese (Acute) Diabetes mellitus with foot ulcer due to multiple causes (Acute) Atherosclerosis of [place] arteries of left leg with ulceration of other part of foot (Acute) Cellulitis of left toe (Acute) HTN (hypertension) (Chronic) Gout (Chronic) GERD (gastroesophageal reflux disease) (Chronic) Cardiomyopathy (Acute) LVEF 61% by echo in 07/2018, up from 23% in 10/2015. (Dr. Melvin) Diabetes mellitus (Chronic) Hallux limitus of left foot (Acute) Medical History Diabetic foot infection Diabetic ulcer of foot associated with diabetes mellitus due to underlying condition, limited to breakdown of skin Obesity (BMI 30-39.9) Surgical History H/O adenoidectomy History of bunionectomy of left great toe Hx of circumcision 05/13/21 Family History Mother Hypertension Social History Smoking/Tobacco Use Status: Former Tobacco Use Quit Date: 06/06/02 Smoking risk assessment performed?: Yes Alcohol Intake: current Alcohol Intake frequency: a few times a month Alcohol type: beer Drug use: Never Substance use type: does not use Do you feel safe at home: Yes Do you feel safe in your relationship?: Yes Course Vital Signs Vital signs: Vital Signs Temperature 36.6 C 12/02/22 10:19 Pulse 85 12/02/22 10:19 Blood Pressure 148/81 H 12/02/22 10:19 Pulse Oximetry 98 12/02/22 10:19 Temperature 36.6 C 12/02/22 10:19 Temperature Source Temporal Artery Scan 12/02/22 10:19 Pulse 85 12/02/22 10:19 Respiratory Effort Normal, Non-Labored 12/02/22 10:24 Blood Pressure 148/81 H 12/02/22 10:19 Blood Pressure Position Sitting 12/02/22 10:19 Pulse Oximetry 98 12/02/22 10:19 Oxygen Delivery Method Room Air 12/02/22 10:19 Oxygen Flow Rate 0 12/02/22 10:19 Lab/Test Results Lab/Test Results: 12/02/22 11:18 Blood Blood Culture - Pending 12/02/22 11:10 Blood Blood Culture - Pending Laboratory Tests Range/Units 12/02/22 12/02/22 12/02/22 11:25 11:25 11:25 WBC (4.4-10.8) 10^3/uL 9.60 RBC (4.36-5.78) 10^6/uL 5.29 Hgb (13.5-17.5) g/dL 14.5 Hct (40.0-50.0) % 43.3 MCV (80-95) fL 82 MCH (27.0-33.0) pg 27.4 MCHC (32.0-36.0) % 33.5 RDW (11.8-14.1) % 13.1 Plt Count (130-400) 10^3/uL 294 MPV (8.0-11.0) fL 8.4 Immature Gran % 0.4 Neutrophils % 75.0 Lymphocytes % 11.3 Monocytes % 11.8 Eosinophils % 1.0 Basophils % 0.5 Nucleated RBC % (0.0-0.3) % 0.0 Absolute Neutrophils (1.2-6.7) 10^3/uL 7.20 H Absolute Lymphocytes (1.2-3.4) 10^3/uL 1.08 L Absolute Monocytes (0.1-0.8) 10^3/uL 1.13 H Absolute Eosinophils (0.0-0.7) 10^3/uL 0.10 Absolute Basophils (0.0-0.2) 10^3/uL 0.05 VBG Lactate (0.6-1.4) mmol/L 1.2 Sodium (136-145) mmol/L 136 Potassium (3.5-5.1) mmol/L 4.0 Chloride (98-107) mmol/L 97 L Carbon Dioxide (21.0-32.0) mmol/L 25.4 Anion Gap (3-11) mmol/L 13.6 H BUN (7-18) mg/dL 19 H Creatinine (0.70-1.30) mg/dL 1.1 Est GFR (CKD-EPI 2020) (mL/min/1.73m2) 82.29 Glucose (74-106) mg/dL 168 H Calcium (8.5-10.1) mg/dL 8.9 Total Bilirubin (0.2-1.0) mg/dL 0.6 AST (15-37) U/L 25 ALT (16-63) U/L 38 Alkaline Phosphatase (46-116) U/L 60 C-Reactive Protein (0.0-0.3) mg/dL 7.01 H Total Protein (6.4-8.2) g/dL 8.6 H Albumin (3.4-5.0) g/dL 3.7
[2022-12-02] MEDS: Normal Saline 1,000 ML 1000 ML IV (13:11)
[2022-12-02] MEDS: PIPERACILLIN/TAZO 3.375 GM in Normal Saline 50 ML IVPB ×3 (13:12→23:25)
--- NOTE | 2022-12-02 13:25 | W.ANESPRE ---
General Info Date of Service Date Performed: 12/02/22 Height: 6 ft Weight: 124.738 kg Body Mass Index (BMI): 37.3 Surgical Procedure: Operation Date: 12/02/22 13:40 Proposed Procedure Side Surgeon p I&D Foot Wound Left Sunny Connelly MD Meds Allergies and Home Medications Allergies Allergy/AdvReac Type Severity Reaction Status Date / Time No Known Allergies Allergy Verified 12/02/22 10:21 Home Medication Medication Instructions Recorded empagliflozin 10 mg tablet 25 mg PO DAILY 05/13/21 (Jardiance) metformin 500 mg tablet 1,000 mg PO BID 05/13/21 spironolactone 25 mg tablet 25 mg PO BID 05/13/21 fenofibrate nanocrystallized 48 mg 48 mg PO DAILY 05/15/21 tablet ibuprofen 600 mg tablet 600 mg PO Q6H PRN pain and 05/15/21 inflammation #60 tabs magnesium 250 mg tablet 250 mg PO DAILY 05/15/21 acetaminophen 500 mg capsule 1,000 mg PO Q6H PRN 07/11/21 allopurinol 300 mg tablet 300 mg PO DAILY 07/11/21 gabapentin 300 mg tablet 300 mg PO QHS 07/11/21 enalapril maleate 20 mg tablet 20 mg PO HS 02/09/22 mupirocin 2 % topical ointment 1 applic topical BID 02/09/22 ciprofloxacin HCl 500 mg tablet 500 mg PO BID #28 tabs 11/26/22 Current Visit Medications: Current Medications Generic Name Dose Route Start Last Admin Trade Name Freq PRN Reason Stop Dose Admin Sodium Chloride 1,000 mls @ 1,000 mls/hr 12/02/22 12:59 12/02/22 13:11 Saline 1000ml Bag IV 12/02/22 13:58 1,000 mls/hr BOLUS ONE Administration Piperacillin Sod/Tazobactam 50 mls @ 100 mls/hr 12/02/22 12:59 12/02/22 13:12 Sod 3.375 gm/ Sodium Chloride IVPB 12/02/22 13:28 100 mls/hr NOW ONE Administration Vancomycin/PEG/NADA/Lysine/Water 2 gm in 400 mls @ 200 mls/hr 12/02/22 13:15 Vancocin Injection IVPB 12/02/22 15:14 NOW ONE [facility] Active Problems Active Problems: Problem Status Onset Code Diabetes mellitus with foot ulcer due to multiple causes E11.621, L97.509 Atherosclerosis of [place] arteries of left leg with ulceration of other part of foot I70.245 Cellulitis of left toe L03.032 HTN (hypertension) I10 Gout M10.9 GERD (gastroesophageal reflux disease) K21.9 Cardiomyopathy I42.9 Diabetes mellitus E11.9 Hallux limitus of left foot M20.5X2 Medical History Medical History Diabetic foot infection Diabetic ulcer of foot associated with diabetes mellitus due to underlying condition, limited to breakdown of skin Obesity (BMI 30-39.9) Surgical History Surgical History H/O adenoidectomy History of bunionectomy of left great toe Hx of circumcision 05/13/21 Tobacco Smoking/Tobacco Use Status: Former Tobacco Use Alcohol Alcohol Intake: current Alcohol intake frequency: a few times a month Alcohol type: beer Substance Use Substance use: Never Substance use type: does not use Vital Signs and Lab Results Vital Signs Most Recent Vital Signs in EMR: Most Recent Vital Signs Temp Pulse BP Pulse Ox 36.6 C 85 148/81 H 98 12/02/22 10:19 12/02/22 10:19 12/02/22 10:19 12/02/22 10:19 Point of Care Results Point of Care Results: Finger Stick Blood Glucose 173 12/02/22 11:17 Lab Results 12/02/22 11:25 12/02/22 11:25 Blood Type / Crossmatch: No Data to Display Complete Blood Count: White Blood Count 9.60 10^3/uL (4.4-10.8) 12/02/22 11:25 Red Blood Count 5.29 10^6/uL (4.36-5.78) 12/02/22 11:25 Hemoglobin 14.5 g/dL (13.5-17.5) 12/02/22 11:25 Hematocrit 43.3 % (40.0-50.0) 12/02/22 11:25 Platelet Count 294 10^3/uL (130-400) 12/02/22 11:25 Venous Blood Lactate 1.2 mmol/L (0.6-1.4) 12/02/22 11:25 Complete Metabolic Panel: Sodium 136 mmol/L (136-145) 12/02/22 11:25 Potassium 4.0 mmol/L (3.5-5.1) 12/02/22 11:25 Chloride 97 mmol/L (98-107) L 12/02/22 11:25 Carbon Dioxide 25.4 mmol/L (21.0-32.0) 12/02/22 11:25 BUN 19 mg/dL (7-18) H 12/02/22 11:25 Creatinine 1.1 mg/dL (0.70-1.30) 12/02/22 11:25 Est GFR (CKD-EPI 2020) 82.29 (mL/min/1.73m2) 12/02/22 11:25 Calcium 8.9 mg/dL (8.5-10.1) 12/02/22 11:25 Albumin 3.7 g/dL (3.4-5.0) 12/02/22 11:25 Glucose 168 mg/dL (74-106) H 12/02/22 11:25 Hemoglobin A1c 8.2 % (<5.7) H 11/30/22 09:18 C-Reactive Protein 7.01 mg/dL (0.0-0.3) H 12/02/22 11:25 Liver Function Panel: Alanine Aminotransferase (ALT/SGPT) 38 U/L (16-63) 12/02/22 11:25 Aspartate Amino Transf (AST/SGOT) 25 U/L (15-37) 12/02/22 11:25 Coagulation Panel: No Data to Display Cardiac Panel: No Data to Display Arterial Blood Gas: No Data to Display Venous Blood Gas: No Data to Display Pancreas Panel: No Data to Display Thyroid Panel: No Data to Display Infectious Disease: No Data to Display Blood Cultures: No Data to Display Toxicology Panel: No Data to Display Imaging and Studies Imaging and Studies Study information below may be from another EMR and interpreted by another provider. Please see original notes in EMR for more complete details. [place]ogram [place]: [place] [facility] [place] 1. Technically limited study. 2. The left ventricular chamber size is normal. Left ventricular wall thickness is normal. There is normal global left ventricular systolic function. The quantitative left ventricular ejection fraction by biplane Stuart's method is 61%. There are no left ventricular segmental wall motion abnormalities. Doppler assessment is consistent with normal left sided filling pressure. 3. Right ventricular chamber size, wall thickness, and systolic function are within normal limits. Pulmonary artery hypertension could not be assessed due to inadequate tricuspid regurgitation jet. 4. The left atrium is normal in size. The right atrium appears normal. 5. There is no hemodynamically significant valve disease. 6. See remainder of report for additional findings. Anesthesia Assessment and Plan Anesthesia History Personal History: No History of Anesthesia Complications Family History: No Family History of Anesthesia Complications Exercise Tolerance Exercise Tolerance: Metabolic Equivalents>4 Pertinent Negatives Pertinent Negatives: No Symptoms of GERD Cardiac & Pulmonary Exam Cardiac Exam: Normal S1/S2 Heart Sounds Pulmonary Exam: Clear Bilateral Breath Sounds Implantable Cardiac Device Does patient have a Pacemaker or an ICD?: No Airway Exam Known Difficult Airway: No Mallampati Class: 2 Mouth Opening: Normal (> 3cm) Thyromental Distance: Greater than 3 cm Neck Range of Motion: Full ROM Neck Circumference: Normal Teeth Condition: Generalized Poor Dentition and Loose or Chipped ASA Classification ASA Score: ASA 3 Emergency Case?: Yes NPO Status NPO Status: NPO Clears >2 hours, Solids >8 hours Anesthesia Plan Resuscitation Status: Full Code Anesthesia Technique: General Anesthesia Airway Planned: Natural Airway Monitors Used: Standard Monitors
[2022-12-02] MEDS: VANCOMYCIN/WATER (PEG) 2 GM/400 ML BAG IVPB (13:45)
--- NOTE | 2022-12-02 13:53 | W.SURGCON ---
Date of service: 12/02/22 Time of Service: 13:54 Assessment and Plan Assessment and plan (1) Cellulitis of left toe: Status: Acute Assessment and plan: There is a soft tissue infection involving the left fourth toe. Based on the erythema, I am concerned this is spreading onto the forefoot. We talked about the importance of incision and drainage today, and the addition of intravenous antibiotics. I will plan to obtain some culture data from the operating room to ensure appropriate antibiotic coverage. I did explain my concerns regarding the viability of this toe, and but I consider local likelihood of salvage of the toe based on the natural history of this wound. For now, we will focus on getting the infection under control and proceeding from there. We discussed the risks and benefits of debridement of this wound, I think he has a good understanding of that, we will proceed as planned. History of Present Illness History of Present Illness Chief Complaint: Left toe infection Narrative: Ze is a 47-year-old male with a past medical history that is most significant for diabetes as well as an evolving left fourth toe infection. Other past medical history dates back to approximately 2 years ago when he developed an infection in the left foot. He tells me that he a wound on the underside of the ball of the foot, that spread into the large toe. He required surgical debridement. 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 More recently, around the middle of November, he developed some redness on the medial side of the left small toe. He was working with a scullion chief at that time, palpable wound care was started, as well as padding around the left small toe as well as the toe adjacent to it. And while the redness on the medial side of the small toe started to improve, he did develop an associated wound on the toe adjacent to it. His wound has continued to evolve over the next 3 weeks. He was seen by Dr. Mcdaniels on the , and the wound was sharply debrided. Cultures were obtained, and he was started on ciprofloxacin. The wound was dressed with Betadine paints. Culture data has resulted with Staph aureus as well as group B strep. The staph is sensitive to the Cipro. He followed up with Dr. Ramey 2 days ago, there was some maceration of the skin adjacent to the wound, and dressings were changed over to Aquacel. This morning, he noticed some sloughing of the skin off the top portion of the toe. It is also worth mentioning that his feet are basically insensate from diabetic neuropathy PFSH All Active Problems Diabetes mellitus with foot ulcer due to multiple causes (Acute) Atherosclerosis of [place] arteries of left leg with ulceration of other part of foot (Acute) Cellulitis of left toe (Acute) HTN (hypertension) (Chronic) Gout (Chronic) GERD (gastroesophageal reflux disease) (Chronic) Cardiomyopathy (Acute) LVEF 61% by echo in 07/2018, up from 23% in 10/2015. (Dr. Melvin) Diabetes mellitus (Chronic) Hallux limitus of left foot (Acute) Medical History Diabetic foot infection Diabetic ulcer of foot associated with diabetes mellitus due to underlying condition, limited to breakdown of skin Obesity (BMI 30-39.9) Surgical History H/O adenoidectomy History of bunionectomy of left great toe Hx of circumcision 05/13/21 Family History Mother Hypertension Social History Smoking/Tobacco Use Status: Former Tobacco Use Quit Date: 06/06/02 Smoking risk assessment performed?: Yes Alcohol Intake: current Alcohol Intake frequency: a few times a month Alcohol type: beer Drug use: Never Substance use type: does not use Do you feel safe at home: Yes Do you feel safe in your relationship?: Yes Exam Const General: cooperative and comfortable Orientation: awake and oriented x3 Eyes General: appearance normal, both eyes and all related structures Conjunctivae: conjunctivae normal Sclera: sclerae normal Resp Effort & Inspection: normal respiratory effort and able to speak in complete sentences Auscultation: clear to auscultation bilaterally Cardio Jugular venous pressure: no JVD Rate: regular rate Rhythm: regular rhythm Heart Sounds: S1 normal and S2 normal Skin General skin exam: normal turgor Neuro General: patient alert, patient awake and patient oriented x3 Cognition: normal cognition Extrem Other: As previously mentioned, the left large toe has been amputated, and the wound is healed nicely. On the toe adjacent to the small toe, there is erythema extending onto the forefoot. There is a ulcer on the lateral side of the toe. He has palpable dorsalis pedis and posterior tibial pulses Results Last Vital Signs Temp 97.9 F 12/02/22 10:19 Pulse 85 12/02/22 10:19 BP 148/81 H 12/02/22 10:19 Pulse Ox 98 12/02/22 10:19 Labs 12/02/22 11:25 12/02/22 11:25 Labs: Laboratory Results - last 24 hr 12/02/22 12/02/22 12/02/22 11:25 11:25 11:25 WBC 9.60 RBC 5.29 Hgb 14.5 Hct 43.3 MCV 82 MCH 27.4 MCHC 33.5 RDW 13.1 Plt Count 294 MPV 8.4 Immature Gran % 0.4 Neutrophils % 75.0 Lymphocytes % 11.3 Monocytes % 11.8 Eosinophils % 1.0 Basophils % 0.5 Nucleated RBC % 0.0 Absolute Neutrophils 7.20 H Absolute Lymphocytes 1.08 L Absolute Monocytes 1.13 H Absolute Eosinophils 0.10 Absolute Basophils 0.05 VBG Lactate 1.2 Sodium 136 Potassium 4.0 Chloride 97 L Carbon Dioxide 25.4 Anion Gap 13.6 H BUN 19 H Creatinine 1.1 Est GFR (CKD-EPI 2020) 82.29 Glucose 168 H Calcium 8.9 Total Bilirubin 0.6 AST 25 ALT 38 Alkaline Phosphatase 60 C-Reactive Protein 7.01 H Total Protein 8.6 H Albumin 3.7
--- NOTE | 2022-12-02 14:53 | W.ANESPOSTOP ---
Postoperative Evaluation Date, Time and Location Date Performed: 12/02/22 Time Performed: 14:53 Patient Location: PACU Vital Signs Most Recent Imported Vital Signs: Most Recent Vital Signs Temp Pulse Resp BP Pulse Ox 36.7 C 86 19 126/71 96 12/02/22 14:43 12/02/22 14:43 12/02/22 14:43 12/02/22 14:43 12/02/22 14:43 Pain Score Most Recent Pain Score: Most Recent Pain Score Pain Level 0 12/02/22 14:43 Assessment Mental Status: Awake (Alert & Oriented to Patient Baseline) Airway and Respiratory Function: Patent airway with normal (patient baseline) respiratory exam Cardiovascular Function: Hemodynamically Stable Hydration Status: Adequately Hydrated Nausea & Vomiting: No Nausea or Vomiting Pain: Pt. Denies Any Pain Peripheral Nerve Block: Patient did not receive a nerve block
--- NOTE | 2022-12-02 15:15 | ROE_ITS ---
Date of service: 12/02/22 Time of Service: 15:15 Operative Note Operative Note DATE OF PROCEDURE: 12/02/22 PRE-OP DIAGNOSIS: Left toe infection POST-OP DIAGNOSIS: same PROCEDURE: Incision and drainage with culture of left toe infection SURGEON: Sunny Connelly ANESTHESIA TYPE: MAC Refer to Anesthesia Record ESTIMATED BLOOD LOSS: 15 PATHOLOGY: other (Aerobic and anaerobic cultures of left toe wound, tissue for Gram stain and culture of left toe wound) COMPLICATIONS: None Patient was transported to: PACU Patient's condition: stable Indications: Ze is a 47-year-old male who has been dealing with a wound on the lateral side of his left fourth toe (the toe adjacent to the smallest toe since the first toe was previously amputated). Underwent debridement of the wound at the end of November. He was started on ciprofloxacin. Culture data so far is group B strep and Staph aureus. Over the past 24 hours, he developed some increasing redness on the top of the left fourth toe. Additionally, there was some desquamation of the skin. He came to the emergency department for that reason. Procedure Description: After the induction of monitored anesthetic care, I prepped and draped the left foot in the usual fashion. There was a small defect over the proximal interphalangeal joint on the left fourth toe. I incised this a bit, and gently dissected the underlying tissues. There was a small amount of purulent tissue here that was sampled for aerobic and anaerobic cultures. Next, using a 15 varinder de scalpel, I debrided the nonviable tissue over this. The wound tracks back towards the forefoot, and slightly towards the lateral aspect of the toe. Next, I turned my attention to the chronic wound on lateral aspect of the toe. It undermines the skin a bit. It appears to me that this wound extends right down onto the bones of the fourth toe. At the very least, it is down onto the tendon sheath. Using a periosteal elevator, I gently probed the wound. It does track towards the top side of the foot. I suspect this was the source seeding the soft tissues on the upper portion of the toe. Next, I irrigated both wounds. I gently packed the surgical site on the top portion of the wound, and used some half-inch iodoform packing cut to fit for the lateral wound as well. Gauze dressings were used to pad in between the toes, and the foot was loosely wrapped with a fluffed Curlex gauze.
--- NOTE | 2022-12-02 16:00 | W.PM.HP.N ---
Date of service: 12/02/22 Time of Service: 16:00 Assessment and Plan Assessment and plan (1) Cellulitis of left toe: Status: Acute Assessment and plan: has been followed by general surgery, going to OR for debridement. has been started on vanc/zosyn day 1 elevate (2) Diabetes mellitus type 2 in obese: Status: Acute Assessment and plan: hemoglobin A1C 8.2 diabetic diet, sliding scale coverage with meals (3) HTN (hypertension): Status: Chronic Assessment and plan: continue home blood pressure meds and follow (4) Gout: Status: Chronic Assessment and plan: continue home medication (5) GERD (gastroesophageal reflux disease): Status: Chronic Assessment and plan: no symptoms (6) Discharge planning issues: Status: Acute Assessment and plan: home with no services once medically ready discussed with DR Caputo History of Present Illness History of Present Illness Chief Complaint: left toe infection Review of Systems All systems reviewed & are unremarkable except as noted in HPI and below PFSH All Active Problems (Updated 12/03/22 @ 12:52 by Deedee Gonzalez NP) Discharge planning issues (Acute) DVT prophylaxis (Acute) Diabetes mellitus type 2 in obese (Acute) Diabetes mellitus with foot ulcer due to multiple causes (Acute) Atherosclerosis of [place] arteries of left leg with ulceration of other part of foot (Acute) Cellulitis of left toe (Acute) HTN (hypertension) (Chronic) Gout (Chronic) GERD (gastroesophageal reflux disease) (Chronic) Cardiomyopathy (Acute) LVEF 61% by echo in 07/2018, up from 23% in 10/2015. (Dr. Melvin) Diabetes mellitus (Chronic) Hallux limitus of left foot (Acute) Medical History Diabetic foot infection Diabetic ulcer of foot associated with diabetes mellitus due to underlying condition, limited to breakdown of skin Obesity (BMI 30-39.9) Surgical History H/O adenoidectomy History of bunionectomy of left great toe Hx of circumcision 05/13/21 Family History Mother Hypertension Social History Smoking/Tobacco Use Status: Former Tobacco Use Quit Date: 06/06/02 Smoking risk assessment performed?: Yes Alcohol Intake: current Alcohol Intake frequency: a few times a month Alcohol type: beer Drug use: Never Substance use type: does not use Do you feel safe at home: Yes Do you feel safe in your relationship?: Yes Meds Allergies and Home Medications Allergies Allergy/AdvReac Type Severity Reaction Status Date / Time No Known Allergies Allergy Verified 12/02/22 10:21 Home Medications Medication Instructions Recorded Confirmed Type empagliflozin 10 mg tablet 25 mg PO DAILY 05/13/21 12/02/22 History (Jardiance) metformin 500 mg tablet 1,000 mg PO BID 05/13/21 12/02/22 History spironolactone 25 mg tablet 25 mg PO BID 05/13/21 12/02/22 History fenofibrate nanocrystallized 48 mg 48 mg PO DAILY 05/15/21 12/02/22 History tablet ibuprofen 600 mg tablet 600 mg PO Q6H PRN pain and 05/15/21 12/02/22 Rx inflammation #60 tabs magnesium 250 mg tablet 250 mg PO DAILY 05/15/21 12/02/22 History acetaminophen 500 mg capsule 1,000 mg PO Q6H PRN 07/11/21 12/02/22 History allopurinol 300 mg tablet 300 mg PO DAILY 07/11/21 12/02/22 History gabapentin 300 mg tablet 300 mg PO QHS 07/11/21 12/02/22 History enalapril maleate 20 mg tablet 20 mg PO HS 02/09/22 12/02/22 History mupirocin 2 % topical ointment 1 applic topical BID 02/09/22 11/30/22 History ciprofloxacin HCl 500 mg tablet 500 mg PO BID #28 tabs 11/26/22 12/02/22 Rx Exam Const General: cooperative, comfortable and no acute distress Nutritional Appearance: overweight Orientation: alert, awake and oriented x3 HENMT Head: normal to inspection, normocephalic and atraumatic Mouth: oral mucosae normal Chest Chest: normal inspection of the chest Resp Effort & Inspection: normal respiratory effort Auscultation: clear to auscultation bilaterally Cardio Rate: regular rate Rhythm: regular rhythm GI Inspection: normal to inspection Palpation: soft Skin Lesions: lesion noted Rashes: rashes noted Neuro General: patient alert, patient awake and patient oriented x3 Cognition: normal cognition Speech: speech normal Gait: normal gait Motor: muscle tone normal throughout Extrem Left lower extremity: foot (bulky dressing intact, no proximal erythema or edema) Results Labs 12/03/22 06:12 12/03/22 06:12 Labs: Laboratory Results - last 24 hr 12/03/22 12/03/22 06:12 06:12 WBC 8.97 RBC 4.97 Hgb 13.8 Hct 40.8 MCV 82 MCH 27.8 MCHC 33.8 RDW 13.1 Plt Count 274 MPV 8.5 Immature Gran % 0.6 Neutrophils % 65.8 Lymphocytes % 16.7 Monocytes % 13.3 Eosinophils % 2.9 Basophils % 0.7 Nucleated RBC % 0.0 Absolute Neutrophils 5.91 Absolute Lymphocytes 1.50 Absolute Monocytes 1.19 H Absolute Eosinophils 0.26 Absolute Basophils 0.06 Sodium 134 L Potassium 4.0 Chloride 99 Carbon Dioxide 23.7 Anion Gap 11.3 H BUN 17 Creatinine 1.1 Est GFR (CKD-EPI 2020) 82.29 Glucose 136 H Calcium 8.5 Total Bilirubin 0.7 AST 23 ALT 33 Alkaline Phosphatase 49 Total Protein 7.6 Albumin 3.2 L Last Vital Signs Temp 36.2 C L 12/03/22 12:26 Pulse 82 12/03/22 12:26 Resp 18 12/03/22 12:26 BP 143/87 H 12/03/22 12:26 Pulse Ox 96 12/03/22 12:26 Time Spent Time spent with Patient: 40-54 minutes Time was spent: preparing to see the patient(eg.review tests), obtaining and/or reviewing separately otained hiistory, ordering medications,tests, procedures and indepentently interpreting results
[2022-12-02] MEDS: Spironolactone 25 MG TAB PO (19:34)
[2022-12-02] MEDS: Magnesium Gluconate 500 MG TAB 250 MG PO (21:24)
[2022-12-02] MEDS: Allopurinol 300 MG TAB PO (21:25)
[2022-12-02] MEDS: Gabapentin 300 MG CAP PO (21:25)
[2022-12-02] MEDS: Acetaminophen 500 MG TAB 1000 MG PO (23:24)
[2022-12-03] MEDS: Normal Saline Flush 10 ML SYR IVP ×4 (01:48→18:14)
[2022-12-03] MEDS: VANCOMYCIN/WATER (PEG) 1.25 GM/250 ML BAG IV ×2 (01:49→14:01)
[2022-12-03] MEDS: PIPERACILLIN/TAZO 3.375 GM in Normal Saline 50 ML IVPB ×3 (05:44→18:14)
[2022-12-03 06:38] LABS: Abs Immature Grans 0.05 10^3/uL (0.0-0.06); Absolute Basophil Count 0.06 10^3/uL (0.0-0.2); Absolute Eosinophil Count 0.26 10^3/uL (0.0-0.7); Absolute Monocyte Count 1.19 10^3/uL (0.1-0.8); Absolute Neutrophil Count 5.91 10^3/uL (1.2-6.7); Basophils % 0.7; Eosinophils % 2.9; HCT 40.8 % (40.0-50.0); HGB 13.8 g/dL (13.5-17.5); Immature Grans % 0.6; Lymphocytes % 16.7; MCH 27.8 pg (27.0-33.0); MCHC 33.8 % (32.0-36.0); MCV 82 fL (80-95); MPV 8.5 fL (8.0-11.0); Monocytes % 13.3; Neutrophils % 65.8; Platelet Count 274 10^3/uL (130-400); RBC 4.97 10^6/uL (4.36-5.78); RDW 13.1 % (11.8-14.1); RDW-SD 39.3 fL; WBC 8.97 10^3/uL (4.4-10.8)
[2022-12-03 06:52] LABS: ALT 33 U/L (16-63); AST 23 U/L (15-37); Albumin 3.2 g/dL (3.4-5.0); Alkaline Phosphatase 49 U/L (46-116); Anion Gap 11.3 mmol/L (3-11); BUN 17 mg/dL (7-18); Bilirubin, Total 0.7 mg/dL (0.2-1.0); CO2 23.7 mmol/L (21.0-32.0); CREATININE 1.1 mg/dL (0.70-1.30); Calcium 8.5 mg/dL (8.5-10.1); Chloride 99 mmol/L (98-107); Estimated GFR 82.29 (mL/min/1.73m2); Glucose 136 mg/dL (74-106); Sodium 134 mmol/L (136-145); Total Protein 7.6 g/dL (6.4-8.2)
[2022-12-03 07:47] VITALS: BP 149/80; PULSE 89; RESP 16; TEMP 37; O2SAT 96
[2022-12-03] MEDS: Empaglifozin 10 MG TAB 25 MG PO (08:12)
[2022-12-03] MEDS: Spironolactone 25 MG TAB PO ×2 (08:13→20:16)
[2022-12-03] MEDS: Fenofibrate, Micronized 48 MG TAB PO (08:13)
[2022-12-03] MEDS: Gadoterate meglumine 20 ML SYRINGE IVP (11:17)
--- NOTE | 2022-12-03 12:00 | DI.MRI_ITS ---
Exam(s) MR LOWER EXTREMITY LT W CLINICAL HISTORY: osteomylitis left 4th toe. TECHNIQUE: Multiplanar multisequence MRI was performed. CONTRAST MATERIAL: IV Contrast: 20 mL of Dotarem contrast administered. COMPARISON: Left foot November 26. Left 4th toe 02 December 2022 FINDINGS: Metallic foreign body creating artifact in the ventral soft tissues. This creates artifact on the fa t suppressed images. This decreases the ability to detect for postcontrast enhancement in the proxima l phalanx. BONES: Edema on T2 weighted images in the proximal middle and distal phalanges of 4th toe. No definit e postcontrast enhancement. Focus of enhancement is seen in the distal 2nd metatarsal in an area of e rosion seen on plain films. JOINTS: Fluid in around the proximal interphalangeal joint of the 4th toe. LIGAMENTS: The tibiofibular, deltoid and calcaneofibular ligaments are intact. The syndesmosis is unr emarkable. Sinus tarsi is normal. MUSCULOTENDINOUS STRUCTURES: Achilles tendon is intact. The planar fascia is unremarkable. The medial flexor, anterior extensor, and peroneal tendons are intact. SOFT TISSUES: Marked edema in the 4th toe. Dorsal soft tissue wound with overlying gauze visible. M etallic foreign body creating artifact in the ventral soft tissues. This creates artifact on the fat suppressed images. This decreases the ability to detect for postcontrast enhancement in the proximal phalanx. There is an abscess collection in the plantar soft tissues at the level of the 1st metatarsal head me asuring 2 cm. 12 millimeter abscess is seen in the plantar soft tissues at the level of the 2nd metat arsal head. Additional plantar abscess adjacent to the medial aspect of the distal 1st metatarsal sha ft measuring 10 millimeters. There is a large amount of diffuse abnormal soft tissue enhancement daniel g the dorsum of the foot.. IMPRESSION: Multiple small abscesses in the plantar soft tissues of the foot. Diffuse cellulitis. Suspicious focu s of enhancement in the 1st metatarsal head in area of erosion seen on plain film. No definite abnorm al enhancement of the 4th toe. DATA REPOSITORY:
[2022-12-03] MEDS: Insulin Aspart 300 UNITS/3 ML PEN SC (12:25)
[2022-12-03 12:26] VITALS: BP 143/87; PULSE 82; RESP 18; TEMP 36.2; O2SAT 96
--- NOTE | 2022-12-03 14:50 | W.PM.PROGNOT ---
Date of Service Date of service: 12/03/22 Time of Service: 07:40 Assessment and Plan Assessment and plan (1) Cellulitis of left toe: Status: Acute Assessment and plan: He is POD #1 s/p debridement of wound and removal of purulent discharge. I will order an MRI of the foot to rule out Osteomylitis Discussed case with Dr. Smith for a second opinion. He will see him later today. For now continue with dressing changes Subjective Subjective Interval history since last seen: Mr. Sauceda is doing OK. He has some burning pain at the surgical site. NO fevers or chills Exam Const General: comfortable and no acute distress Nutritional Appearance: average body habitus Orientation: alert and oriented x3 HENMT Head: normocephalic and atraumatic Resp Effort & Inspection: normal respiratory effort Extrem Other: Left foot- Dressing is intact. There is some serosanguinous discharge on the kerlix. Objective Last Vital Signs Temp 97.2 F L 12/03/22 12:26 Pulse 82 12/03/22 12:26 Resp 18 12/03/22 12:26 BP 143/87 H 12/03/22 12:26 Pulse Ox 96 12/03/22 12:26 Laboratory Results - last 24 hr 12/03/22 12/03/22 06:12 06:12 WBC 8.97 RBC 4.97 Hgb 13.8 Hct 40.8 MCV 82 MCH 27.8 MCHC 33.8 RDW 13.1 Plt Count 274 MPV 8.5 Immature Gran % 0.6 Neutrophils % 65.8 Lymphocytes % 16.7 Monocytes % 13.3 Eosinophils % 2.9 Basophils % 0.7 Nucleated RBC % 0.0 Absolute Neutrophils 5.91 Absolute Lymphocytes 1.50 Absolute Monocytes 1.19 H Absolute Eosinophils 0.26 Absolute Basophils 0.06 Sodium 134 L Potassium 4.0 Chloride 99 Carbon Dioxide 23.7 Anion Gap 11.3 H BUN 17 Creatinine 1.1 Est GFR (CKD-EPI 2020) 82.29 Glucose 136 H Calcium 8.5 Total Bilirubin 0.7 AST 23 ALT 33 Alkaline Phosphatase 49 Total Protein 7.6 Albumin 3.2 L Time Spent with Patient Time Spent with Patient: <25 minutes Time was spent: preparing to see the patient(eg.review tests) and care coordination
[2022-12-03 15:12] VITALS: BP 143/83; PULSE 91; RESP 18; TEMP 37.5; O2SAT 95
--- NOTE | 2022-12-03 15:18 | PDOC.CMIN ---
Date of service: 12/03/22 Time of Service: 15:18 Care Management Initial Assmt Initial Assessment REASON FOR HOSPITALIZATION:: Cellulites of left toe PREVIOUS FUNCTIONAL STATUS/SOCIAL/FAMILY SUPPORTS:: Ze lives in [place], [place] with his Su. He drives and is independent with his ADL's and MARCOS's at baseline. He is self employed and builds modular homes. CURRENT FUNCTIONAL STATUS:: Ze was lying in bed visiting with his when CM met with him. He is awake and easily engages in conversation. He is eager to talk with the surgeon about his MRI and find out when he can discharge home. ADVANCE DIRECTIVES:: None on file, has unfinished forms at home. Has patient been provided with info about the portal/API?: Yes Did the patient sign up for the portal?: Yes (Prior to admission) CODE STATUS:: Full Code INSURANCE COVERAGE / FINANCIAL ISSUES:: BS out of state CURRENT HOME/COMMUNITY SERVICES/EQUIPMENT:: None PRIMARY CARE PHYSICIAN:: Payam Mejia POTENTIAL DISCHARGE NEEDS:: Follow up appointments, New VNA services if needed for dressing changes and PT RX's can be sent to [facility] PATIENT/FAMILY EDUCATION NEEDS:: Review discharge instructions, limitations, medications and plan to follow up with community providers. Discuss ask me three. TRANSPORTATION:: Via private vehicle with . PLAN:: Anticipate, Ze will discharge home on a course of antibiotics via private vehicle with . New VNA services will be ordered, if indicated. He will follow up with outpatient providers and discharge plan of care as instructed. CM will continue to follow. PFSH All Active Problems (Updated 12/03/22 @ 13:46 by DARI Mcpherson) Discharge planning issues (Acute) DVT prophylaxis (Acute) Diabetes mellitus type 2 in obese (Acute) Diabetes mellitus with foot ulcer due to multiple causes (Acute) Atherosclerosis of [place] arteries of left leg with ulceration of other part of foot (Acute) Cellulitis of left toe (Acute) HTN (hypertension) (Chronic) Gout (Chronic) GERD (gastroesophageal reflux disease) (Chronic) Cardiomyopathy (Acute) LVEF 61% by echo in 07/2018, up from 23% in 10/2015. (Dr. Melvin) Diabetes mellitus (Chronic) Hallux limitus of left foot (Acute) Medical History Diabetic foot infection Diabetic ulcer of foot associated with diabetes mellitus due to underlying condition, limited to breakdown of skin Obesity (BMI 30-39.9) Surgical History H/O adenoidectomy History of bunionectomy of left great toe Hx of circumcision 05/13/21 Family History Mother Hypertension Social History Smoking/Tobacco Use Status: Former Tobacco Use Quit Date: 06/06/02 Smoking risk assessment performed?: Yes Alcohol Intake: current Alcohol Intake frequency: a few times a month Alcohol type: beer Drug use: Never Substance use type: does not use Do you feel safe at home: Yes Do you feel safe in your relationship?: Yes
--- NOTE | 2022-12-03 15:39 | OCONE_ITS ---
Date of service: 12/03/22 Time of Service: 14:15 History of Present Illness History of Present Illness Chief Complaint: Left Foot Infection Narrative: Ze is a 47-year-old with known gout and diabetes. He has had issues with wounds about this left foot in the past. He had 2 plantar wounds about the foot and the dorsal wound as well. He eventually developed osteomyelitis of the great toe and underwent a first ray amputation, MTP disarticulation. He had been doing well until he recently got transition into a new accommodative shoe for a hammertoe of the second toe. Unfortunately, he then developed some pressure to the fourth toe, mostly by the fifth toe rubbing at the lateral aspect. The small wound was seen initially by Dr. Posada podiatry and debrided. It was seemingly doing well until most recently when it became obviously more infected red and painful. He was started on ciprofloxacin prior to this but continued developed symptoms and thus presented to the emergency department. He was admitted and was started on IV antibiotics. Dr. Connelly took him to the operating room yesterday where he debrided the wounds of the fourth toe. These debrided straight down into the PIP joint, against the bone of the fourth toe, adjacent to tendons and also seems cat scan technologist to the dorsum of the forefoot. This was irrigated and debrided and packed. He is insensate and therefore does not complain of much pain although he was having some discomfort up onto the forefoot. 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 He denies any fevers or chills. His CRP was elevated to 7. Initial cultures from the clinic grew Staph aureus, sensitive, and Streptococcus. None of the cultures from the surgery yesterday have returned yet the Gram stain did show gram-negative rods and gram-positive cocci on one of the samples. Blood cultures are negative. Consults Consult date: 12/03/22 Requesting physician: Elisa Ramey Consult Reason Left diabetic foot infection osteomyelitis Assessment and Plan Assessment and plan (1) Diabetes mellitus with foot ulcer due to multiple causes: Status: Acute Assessment and plan: Ze is a 47-year-old diabetic with osteomyelitis, cellulitis, and multiple wounds about the left foot. These are all concentrated around the fourth toe. The depth of the wound extends into the joint with gross instability and underlying bone and tendinous material. I do not see any significant base to support soft tissue healing and therefore my recommendation would be a fourth toe amputation. He does have extensive soft tissue changes, likely related to his current infection. This has been debrided hopefully will be improving. Interestingly, he has this lesion about the first metatarsal. While suspicious for infection he reports that when he had his first toe infection this was evaluated and was found to be gout. He reportedly had tophaceous gout material embedded into the first metatarsal which was curetted out to a certain extent. Furthermore, he has these 2 areas of abscesses seen over the plantar aspect of the foot however, he has no swelling, no signs of infection, no erythema, over these areas. Therefore I do not think these represent active an acute infection. I am more concerned about the diffuse edema seen throughout the soft tissues extending onto the forefoot. However, from what I was told and what he recalls, the foot already looks somewhat better. I was very honest with him that I do not think these wounds are going to heal and therefore fourth amputation is the minimum of what needs to be done. It may not be enough. Is very possible that this infection continues to persist and soft tissues of the forefoot and therefore he needs a transmetatarsal amputation. However, things can be done with a secondary consultation with foot and ankle surgery. To help expedite his care and return to work and function I think the fourth toe amputation is the best step. I discussed this with him and his . I reviewed the concerns about it. I would plan to close it if it does not show significant proximal purulence. However, if there is notable purulence proximal to the amputation site and I would leave it open for additional 2 days and then return to the operating room for attempted closure. We will continue with the IV antibiotics until cultures have finalized. I will retake cultures while in the operating room. We can trend the CRP. However, I hope that within 40 hours of closure we can return him home with oral antibiotics. I would recommend that he be in a postop shoe for at least the first 2 weeks after the surgery with limiting his motion and activity for the first 3 to 5 days, with strict elevat ion. I was very honest and that there is a high risk of wound dehiscence and infection in the setting or potential need for repeat surgeries. After reviewing this with him and his they agreed to proceed. I once again discussed the risk to include recurrent infection, wound dehiscence, need for repeat procedures. We discussed the potential for gait abnormalities although I do not expect it to be a major issue. All of their questions were answered. We will proceed tomorrow to perform the amputation. He will be n.p.o. after midnight utilizing some light sedation to supplement his insensate foot. (2) Cellulitis of left toe: Status: Acute Review of Systems All systems reviewed & are unremarkable except as noted in HPI and below PFSH All Active Problems (Updated 12/03/22 @ 16:01 by Shay Smith MD) Discharge planning issues (Acute) DVT prophylaxis (Acute) Diabetes mellitus type 2 in obese (Acute) Diabetes mellitus with foot ulcer due to multiple causes (Acute) Atherosclerosis of [place] arteries of left leg with ulceration of other part of foot (Acute) Cellulitis of left toe (Acute) HTN (hypertension) (Chronic) Gout (Chronic) GERD (gastroesophageal reflux disease) (Chronic) Cardiomyopathy (Acute) LVEF 61% by echo in 07/2018, up from 23% in 10/2015. (Dr. Melvin) Diabetes mellitus (Chronic) Medical History Diabetic foot infection Diabetic ulcer of foot associated with diabetes mellitus due to underlying condition, limited to breakdown of skin Obesity (BMI 30-39.9) Surgical History H/O adenoidectomy History of bunionectomy of left great toe Hx of circumcision 05/13/21 Family History Mother Hypertension Social History Smoking/Tobacco Use Status: Former Tobacco Use Quit Date: 06/06/02 Smoking risk assessment performed?: Yes Alcohol Intake: current Alcohol Intake frequency: a few times a month Alcohol type: beer Drug use: Never Substance use type: does not use Do you feel safe at home: Yes Do you feel safe in your relationship?: Yes Exam Narrative Exam Narrative: No acute distress. Alert and oriented x3. Extrem Other: Evaluation of the left foot shows a notably swollen fourth toe. Please note that this is the second toe from the lateral side of the foot given that he is missing his great toe. There are 2 full-thickness defects in the skin of the toe both medially and laterally. The lateral base wound extends all the way down into the PIP joint with gross instability of the PIP joint and palpable bone and tendons. Unable to easily probe all the way through the toe to the other side. There is some desquamation but no dorsal wound is apparent. The erythema is mostly involving the fourth toe and extending to the base of the third around the MTP joint and to a lesser extent towards the fifth. Medial aspect of the foot does not show any signs of infection. There is no signifi cant fullness or prominence over the medial side of the foot underlying the sesamoids of the first metatarsal head. No signs of active infection, no erythema, no swelling. I am unable to milk any particular purulence. With direct pressure of the dorsum of the foot there is no purulent material which expresses through the wound. He is largely insensate throughout the foot. He does endorse some sensation pain at the base of the metatarsals and the Lisfranc joint. However, it is still not full. No equinus contracture. Results Last Vital Signs Temp 37.5 C 12/03/22 15:12 Pulse 91 H 12/03/22 15:12 Resp 18 12/03/22 15:12 BP 143/83 H 12/03/22 15:12 Pulse Ox 95 12/03/22 15:12 Labs 12/03/22 06:12 12/03/22 06:12 Labs: Laboratory Results - last 24 hr 12/03/22 12/03/22 06:12 06:12 WBC 8.97 RBC 4.97 Hgb 13.8 Hct 40.8 MCV 82 MCH 27.8 MCHC 33.8 RDW 13.1 Plt Count 274 MPV 8.5 Immature Gran % 0.6 Neutrophils % 65.8 Lymphocytes % 16.7 Monocytes % 13.3 Eosinophils % 2.9 Basophils % 0.7 Nucleated RBC % 0.0 Absolute Neutrophils 5.91 Absolute Lymphocytes 1.50 Absolute Monocytes 1.19 H Absolute Eosinophils 0.26 Absolute Basophils 0.06 Sodium 134 L Potassium 4.0 Chloride 99 Carbon Dioxide 23.7 Anion Gap 11.3 H BUN 17 Creatinine 1.1 Est GFR (CKD-EPI 2020) 82.29 Glucose 136 H Calcium 8.5 Total Bilirubin 0.7 AST 23 ALT 33 Alkaline Phosphatase 49 Total Protein 7.6 Albumin 3.2 L Imaging Imaging Studies: X-ray of the left foot was reviewed. This shows a lucency in the first metatarsal which seems to be largely unchanged from previous x-ray. Additionally, there is no sign of fracture or bony erosion. And there is a hammertoe of the second toe with what appears to be some subluxation or dislocation of the MTP joint. MRI of the left foot was reviewed and this demonstrates what appears to be significant soft tissue edema and cellulitis throughout the forefoot centered mostly about the fourth toe. There is high intensity signal seen within the first metatarsal that does not necessarily enhance. Interestingly, there are 2 plantar abscesses over the plantar aspect the foot, the first being mostly around the medial aspect of the first metatarsal and the second being slightly more lateral. These do have peripheral enhancement although no other surrounding tissue changes. There is some generalized edema seen throughout the soft tissues plantarly however the dorsal soft tissues have significant abundant edema throughout which is most likely related to infection. There is high intensity signal seen within the fourth toe proximal, distal, and middle phalanges. There is some irregularity of the third metatarsal head with some deformity and cystic change and mild hyperintensity signal on the T2 image but without enhancement. This could likely be from avascular necrosis or less likely infection. There is notable fluid seen around the shaft of the fourth toe extending onto the head of the metatarsal.
--- NOTE | 2022-12-03 17:56 | PGE_ITS ---
Date of Service Date of service: 12/03/22 Time of Service: 17:56 Assessment and Plan Assessment and plan (1) Cellulitis of left toe: Status: Acute Assessment and plan: post op day 1 from debridement by general surgery. MRI results reviewed and orthopedics has been consulted, please see note. In brief, plan for 4th toe left amputation tomorrow morning.. continue vanc/zosyn day 2 elevate (2) Diabetes mellitus type 2 in obese: Status: Acute Assessment and plan: hemoglobin A1C 8.2 blood sugars controlled here diabetic diet, sliding scale coverage with meals (3) HTN (hypertension): Status: Chronic Assessment and plan: continue home blood pressure meds and follow (4) Gout: Status: Chronic Assessment and plan: continue home medication (5) GERD (gastroesophageal reflux disease): Status: Chronic Assessment and plan: no symptoms (6) Discharge planning issues: Status: Acute Assessment and plan: home with no services once medically ready discussed with DR Caputo Subjective Subjective Patient reports: no new complaints, tolerating liquids well, tolerating a regular diet and afebrile Exam Const General: cooperative, comfortable and no acute distress Nutritional Appearance: overweight Orientation: alert, awake and oriented x3 HENMT Head: normal to inspection, normocephalic and atraumatic Mouth: oral mucosae normal Chest Chest: normal inspection of the chest Resp Effort & Inspection: normal respiratory effort Auscultation: clear to auscultation bilaterally Cardio Rate: regular rate Rhythm: regular rhythm GI Inspection: normal to inspection Palpation: soft Skin Lesions: lesion noted Rashes: rashes noted Neuro General: patient alert, patient awake and patient oriented x3 Cognition: normal cognition Speech: speech normal Gait: normal gait Motor: muscle tone normal throughout Extrem Left lower extremity: foot (bulky dressing intact, no proximal erythema or edema) Objective Last Vital Signs Temp 37.5 C 12/03/22 15:12 Pulse 91 H 12/03/22 15:12 Resp 18 12/03/22 15:12 BP 143/83 H 12/03/22 15:12 Pulse Ox 95 12/03/22 15:12 Laboratory Results - last 24 hr 12/03/22 12/03/22 06:12 06:12 WBC 8.97 RBC 4.97 Hgb 13.8 Hct 40.8 MCV 82 MCH 27.8 MCHC 33.8 RDW 13.1 Plt Count 274 MPV 8.5 Immature Gran % 0.6 Neutrophils % 65.8 Lymphocytes % 16.7 Monocytes % 13.3 Eosinophils % 2.9 Basophils % 0.7 Nucleated RBC % 0.0 Absolute Neutrophils 5.91 Absolute Lymphocytes 1.50 Absolute Monocytes 1.19 H Absolute Eosinophils 0.26 Absolute Basophils 0.06 Sodium 134 L Potassium 4.0 Chloride 99 Carbon Dioxide 23.7 Anion Gap 11.3 H BUN 17 Creatinine 1.1 Est GFR (CKD-EPI 2020) 82.29 Glucose 136 H Calcium 8.5 Total Bilirubin 0.7 AST 23 ALT 33 Alkaline Phosphatase 49 Total Protein 7.6 Albumin 3.2 L Time Spent with Patient Time Spent with Patient: 25-34 minutes Time was spent: preparing to see the patient(eg.review tests), obtaining and/or reviewing separately otained hiistory, ordering medications,tests, procedures, referring, communicating with other health point of care specialist, counseling the patient and care coordination
[2022-12-03] MEDS: Enalapril 5 MG TAB 20 MG PO (20:16)
[2022-12-03] MEDS: Acetaminophen 500 MG TAB 1000 MG PO (20:16)
[2022-12-03] MEDS: Gabapentin 300 MG CAP PO (21:36)
[2022-12-03] MEDS: Magnesium Gluconate 500 MG TAB 250 MG PO (21:36)
[2022-12-03] MEDS: Allopurinol 300 MG TAB PO (21:37)
[2022-12-03 21:40] VITALS: BP 134/76; PULSE 82; RESP 18; TEMP 37.4; O2SAT 93
[2022-12-04] VITALS (7 sets, daily range): BP systolic 95–136; BP diastolic 59–85; PULSE 71–88; RESP 16–20; TEMP 36.5–37.1; O2SAT 92–96; BMI 36.8
[2022-12-04] MEDS: PIPERACILLIN/TAZO 3.375 GM in Normal Saline 50 ML IVPB ×5 (00:13→23:27)
[2022-12-04] MEDS: VANCOMYCIN/WATER (PEG) 1.25 GM/250 ML BAG IV ×2 (01:40→14:51)
--- NOTE | 2022-12-04 07:18 | W.ANESPRE ---
General Info Date of Service Date Performed: 12/04/22 Height: 6 ft Weight: 123.196 kg Body Mass Index (BMI): 36.8 Surgical Procedure: Operation Date: 12/02/22 13:40 Proposed Procedure Side Surgeon p I&D Foot Wound Left Sunny Connelly MD Actual Procedure Side Surgeon p I&D Foot Wound Left Sunny Connelly MD Pre-Op Diagnosis Post-Op Diagnosis infected left foot infected left foot Operation Date: 12/04/22 06:55 Proposed Procedure Side Surgeon p Foot Toe Amputation Shay Smith MD Meds Allergies and Home Medications Allergies Allergy/AdvReac Type Severity Reaction Status Date / Time No Known Allergies Allergy Verified 12/02/22 10:21 Home Medication Medication Instructions Recorded empagliflozin 10 mg tablet 25 mg PO DAILY 05/13/21 (Jardiance) metformin 500 mg tablet 1,000 mg PO BID 05/13/21 spironolactone 25 mg tablet 25 mg PO BID 05/13/21 fenofibrate nanocrystallized 48 mg 48 mg PO DAILY 05/15/21 tablet ibuprofen 600 mg tablet 600 mg PO Q6H PRN pain and 05/15/21 inflammation #60 tabs magnesium 250 mg tablet 250 mg PO DAILY 05/15/21 acetaminophen 500 mg capsule 1,000 mg PO Q6H PRN 07/11/21 allopurinol 300 mg tablet 300 mg PO DAILY 07/11/21 gabapentin 300 mg tablet 300 mg PO QHS 07/11/21 enalapril maleate 20 mg tablet 20 mg PO HS 02/09/22 mupirocin 2 % topical ointment 1 applic topical BID 02/09/22 ciprofloxacin HCl 500 mg tablet 500 mg PO BID #28 tabs 11/26/22 Current Visit Medications: Current Medications Generic Name Dose Route Start Last Admin Trade Name Freq PRN Reason Stop Dose Admin Acetaminophen 1,000 mg 12/02/22 16:02 12/03/22 20:16 Acetaminophen 500 Mg Tab PO 1,000 mg Q6H PRN PRN Administration Allopurinol 300 mg 12/02/22 22:00 12/03/22 21:37 Allopurinol 300 Mg Tab PO 300 mg HS CARL Administration Dextrose 0 gm 12/02/22 15:59 Glucose Oral Gel 15 Gm/37.5 Gm Tube PO DIRECTED PRN Dextrose/Water 0 gm 12/02/22 15:59 Dextrose 50%-Water 25 Gm/50 Ml Syr IVP DIRECTED PRN Dimethicone/Zinc Oxide 0 gm 12/02/22 15:56 Tyler Protect Cream 142 Gm Tube TP PRN PRN Empagliflozin 25 mg 12/03/22 08:30 12/03/22 08:12 Empaglifozin 10 Mg Tab PO 25 mg DAILY CARL Administration Enalapril Maleate 20 mg 12/03/22 20:00 12/03/22 20:16 Enalapril 5 Mg Tab PO 20 mg QPM CARL Administration Enoxaparin Sodium 40 mg 12/04/22 08:30 Enoxaparin 40 Mg/0.4 Ml Syr SC DAILY CARL Fenofibrate 48 mg 12/03/22 08:30 12/03/22 08:13 Fenofibrate, Micronized 48 Mg Tab PO 48 mg DAILY CARL Administration Gabapentin 300 mg 12/02/22 22:00 12/03/22 21:36 Gabapentin 300 Mg Cap PO 300 mg HS CARL Administration Piperacillin Sod/Tazobactam 50 mls @ 100 mls/hr 12/02/22 18:00 12/04/22 06:31 Sod 3.375 gm/ Sodium Chloride IVPB 100 mls/hr Q6H CARL Administration Vancomycin/PEG/NADA/Lysine/Water 1.25 gm in 250 mls @ 166.66 mls/hr 12/03/22 02:00 12/04/22 01:40 Vancocin Injection IV 167 mls/hr Q12H CARL Administration Sodium Chloride 500 mls @ 0 mls/hr 12/03/22 01:04 Saline 500ml Bag IV PRN PRN As Directed Ibuprofen 600 mg 12/02/22 15:59 Ibuprofen 600 Mg Tab PO Q6H PRN PRN pain and inflammation Insulin Aspart 0 units 12/02/22 17:00 12/03/22 16:49 Insulin Aspart 300 Units/3 Ml Pen SC Not Given 0800,1200,1700 [facility] Protocol Magnesium Gluconate 250 mg 12/02/22 22:00 12/03/22 21:36 Magnesium Gluconate 500 Mg Tab PO 250 mg HS CARL Administration Pt's Own 1 each 12/03/22 20:00 12/03/22 20:17 Lactobacilli PO 1 each Acidophilus Cap BID CARL Administration Sodium Chloride 0 ml 12/03/22 01:04 12/03/22 18:14 Normal Saline Flush 10 Ml Syr IVP 10 ml PRN PRN Administration Spironolactone 25 mg 12/02/22 20:00 12/03/22 20:16 Spironolactone 25 Mg Tab PO 25 mg BID CARL Administration PFSH Active Problems Active Problems: Problem Status Onset Code Discharge planning issues Z02.9 DVT prophylaxis Z29.9 Diabetes mellitus type 2 in obese E11.69, E66.9 Diabetes mellitus with foot ulcer due to multiple causes E11.621, L97.509 Atherosclerosis of [place] arteries of left leg with ulceration of other part of foot I70.245 Cellulitis of left toe L03.032 HTN (hypertension) I10 Gout M10.9 GERD (gastroesophageal reflux disease) K21.9 Cardiomyopathy I42.9 Diabetes mellitus E11.9 Medical History Medical History Diabetic foot infection Diabetic ulcer of foot associated with diabetes mellitus due to underlying condition, limited to breakdown of skin Obesity (BMI 30-39.9) Surgical History Surgical History H/O adenoidectomy History of bunionectomy of left great toe Hx of circumcision 05/13/21 Tobacco Smoking/Tobacco Use Status: Former Tobacco Use Alcohol Alcohol Intake: current Alcohol intake frequency: a few times a month Alcohol type: beer Substance Use Substance use: Never Substance use type: does not use Vital Signs and Lab Results Vital Signs Most Recent Vital Signs in EMR: Most Recent Vital Signs Temp Pulse Resp BP Pulse Ox 36.5 C 71 18 136/77 94 12/04/22 06:29 12/04/22 06:29 12/04/22 06:29 12/04/22 06:29 12/04/22 06:29 Point of Care Results Point of Care Results: Finger Stick Blood Glucose 221 12/03/22 21:38 Lab Results 12/03/22 06:12 12/03/22 06:12 Blood Type / Crossmatch: No Data to Display Complete Blood Count: White Blood Count 8.97 10^3/uL (4.4-10.8) 12/03/22 06:12 Red Blood Count 4.97 10^6/uL (4.36-5.78) 12/03/22 06:12 Hemoglobin 13.8 g/dL (13.5-17.5) 12/03/22 06:12 Hematocrit 40.8 % (40.0-50.0) 12/03/22 06:12 Platelet Count 274 10^3/uL (130-400) 12/03/22 06:12 Venous Blood Lactate 1.2 mmol/L (0.6-1.4) 12/02/22 11:25 Complete Metabolic Panel: Sodium 134 mmol/L (136-145) L 12/03/22 06:12 Potassium 4.0 mmol/L (3.5-5.1) 12/03/22 06:12 Chloride 99 mmol/L (98-107) 12/03/22 06:12 Carbon Dioxide 23.7 mmol/L (21.0-32.0) 12/03/22 06:12 BUN 17 mg/dL (7-18) 12/03/22 06:12 Creatinine 1.1 mg/dL (0.70-1.30) 12/03/22 06:12 Est GFR (CKD-EPI 2020) 82.29 (mL/min/1.73m2) 12/03/22 06:12 Calcium 8.5 mg/dL (8.5-10.1) 12/03/22 06:12 Albumin 3.2 g/dL (3.4-5.0) L 12/03/22 06:12 Glucose 136 mg/dL (74-106) H 12/03/22 06:12 Hemoglobin A1c 8.2 % (<5.7) H 11/30/22 09:18 C-Reactive Protein 7.01 mg/dL (0.0-0.3) H 12/02/22 11:25 Liver Function Panel: Alanine Aminotransferase (ALT/SGPT) 33 U/L (16-63) 12/03/22 06:12 Aspartate Amino Transf (AST/SGOT) 23 U/L (15-37) 12/03/22 06:12 Coagulation Panel: No Data to Display Cardiac Panel: No Data to Display Arterial Blood Gas: No Data to Display Venous Blood Gas: No Data to Display Pancreas Panel: No Data to Display Thyroid Panel: No Data to Display Infectious Disease: No Data to Display Blood Cultures: No Data to Display Toxicology Panel: No Data to Display Imaging and Studies Imaging and Studies Study information below may be from another EMR and interpreted by another provider. Please see original notes in EMR for more complete details. [place]ch[place] [facility] [place] 1. Technically limited study. 2. The left ventricular chamber size is normal. Left ventricular wall thickness is normal. There is normal global left ventricular systolic function. The quantitative left ventricular ejection fraction by biplane Stuart's method is 61%. There are no left ventricular segmental wall motion abnormalities. Doppler assessment is consistent with normal left sided filling pressure. 3. Right ventricular chamber size, wall thickness, and systolic function are within normal limits. Pulmonary artery hypertension could not be assessed due to inadequate tricuspid regurgitation jet. 4. The left atrium is normal in size. The right atrium appears normal. 5. There is no hemodynamically significant valve disease. 6. See remainder of report for additional findings. Anesthesia Assessment and Plan Anesthesia History Personal History: No History of Anesthesia Complications Family History: No Family History of Anesthesia Complications Exercise Tolerance Exercise Tolerance: Metabolic Equivalents>4 Pertinent Negatives Pertinent Negatives: No Symptoms of GERD, No Major Pulmonary Symptoms or Complaints and No History of CVA/TIA Cardiac & Pulmonary Exam Cardiac Exam: Normal S1/S2 Heart Sounds Pulmonary Exam: Clear Bilateral Breath Sounds Implantable Cardiac Device Does patient have a Pacemaker or an ICD?: No Airway Exam Known Difficult Airway: No Mallampati Class: 2 Mouth Opening: Normal (> 3cm) Thyromental Distance: Greater than 3 cm Neck Range of Motion: Full ROM Neck Circumference: Normal Teeth Condition: Generalized Poor Dentition and Loose or Chipped ASA Classification ASA Score: ASA 3 Emergency Case?: Yes NPO Status NPO Status: NPO Clears >2 hours, Solids >8 hours Anesthesia Plan Resuscitation Status: Full Code Anesthesia Technique: General Anesthesia Airway Planned: Natural Airway Monitors Used: Standard Monitors
--- NOTE | 2022-12-04 07:29 | W.PM.PROGNOT ---
Date of Service Date of service: 12/04/22 Time of Service: 07:05 Assessment and Plan Assessment and plan (1) Osteomyelitis of fourth toe of left foot: Status: Acute Assessment and plan: Ze is a 47-year-old diabetic who has multiple wounds about his fourth toe with osteomyelitis and involvement of the entirety of the left fourth toe. There is also some proximal extension. He is status post irrigation debridement. Based on the MRI and our discussion yesterday I did offer fourth toe amputation. While this would not completely excise the infectious portions of his foot it would significantly debulk the source of the infection but also would remove the wounds with exposed bone and soft tissues. The MRI did show some plantar-based abscesses but they are in an area that has no overlying changes of erythema or swelling or any suggestion these are active. Therefore, I do not think these need to be addressed. If there was still significant proximal purulence and I would leave this wound open to return in another 2 days for closure. At this closable then I will do so today. I was very honest with him about risk which the greatest will be continued infection and need for repeat procedures. It is possible that more proximal amputation may be necessary, especially with him already having a great toe amputation. I reviewed this with him and his in detail. All questions were answered. He elects to proceed. Subjective Subjective Interval history since last seen: Ze denies any acute issues. No fevers no chills. No change in pain or profile of symptoms. Exam Narrative Exam Narrative: Sitting up in the hospital bed. No acute distress. Alert and oriented x3. Objective Last Vital Signs Temp 36.5 C 12/04/22 06:29 Pulse 71 12/04/22 06:29 Resp 18 12/04/22 06:29 BP 136/77 12/04/22 06:29 Pulse Ox 94 12/04/22 06:29 Time Spent with Patient Time Spent with Patient: <25 minutes Time was spent: counseling the patient
[2022-12-04] MEDS: Lactated Ringers 1,000 ML 30 ML IV (07:49)
--- NOTE | 2022-12-04 08:42 | ROE_ITS ---
Date of service: 12/04/22 Time of Service: 08:42 Operative Note Operative Note DATE OF PROCEDURE: 12/04/22 PRE-OP DIAGNOSIS: Left 4th Toe Full Thickness Wounds with Osteomyelitis, Left Foot Cellulitis POST-OP DIAGNOSIS: same PROCEDURE: Left 4th MTP Disarticulation, I&D Left Foot SURGEON: Shay Smith ANESTHESIA TYPE: General:No Airway Refer to Anesthesia Record ESTIMATED BLOOD LOSS: 15 PATHOLOGY: other (Aerobic and anaerobic culture swabs of the left toe wound bed, left fourth proximal phalanx) TOURNIQUET TIME: 0 Patient was transported to: PACU Patient's condition: stable Indications: Ze is a 47-year-old diabetic who has full-thickness wounds about the left fourth toe with associated cellulitis and osteomyelitis. He underwent ir rigation and debridement of these wounds which showed tracking proximally and involvement of surrounding soft tissues and bone. Given the severity of these wounds and the adjacent osteomyelitis and the track from the distal wounds into the proximal foot I recommended proceeding with a left fourth toe amputation, MTP disarticulation, with irrigation debridement. This would address the primary concern of the ongoing wounds which are serving as a source of infection and also a lot of better treat the ongoing infection. I was very honest with Ze that future amputation surgery may be necessary and future debridements may be necessary. This procedure would be primarily treating the wounds and getting some source control while the antibiotics continue to work on the surrounding cellulitis and infection within the foot. This would also not address the plantar lesion seen on the MRI although I do not believe that they are clinically relevant. I reviewed the risk of this procedure to include ongoing infection, bleeding, pain, gait dysfunction, need for repeat procedures. Despite these risks, he elected to proceed. Findings: There is exposed bone of the proximal phalanx of the left fourth toe with full- thickness wounds involving the PIP joint and the extensor tendon. For this case the fourth toe was considered to be the second toe from the lateral border of the foot. The fourth toe was then disarticulated through the MTP joint. There was no purulent material encountered. There was no pus seen plantar or dorsal. Primary closure was then performed of the wound. Procedure Description: Ze was greeted in the preoperative holding area. His identity was confirmed and the correct site was identified. It was previously marked. The history and physicals previously updated. The consent was previously signed on the floor earlier that morning. He was taken to the operating room placed on the operating room table. The left leg was propped on a bump. He had been receiving antibiotics in the floor and therefore no additional antibiotics were given. A general, uninstrumented airway anesthetic was administered. A timeout was performed for safe surgery. The left foot was then prepped with Betadine. It was draped in a standard fashion. A planned sagittal fishmouth type incision was made on the skin. The left fourth toe, consider to be the second toe from the lateral border the foot given the missing first toe, was then removed. The PIP joint was grossly unsta ble and thus the toe was removed from the PIP joint. The proximal phalanx was resected and disarticulated from the metatarsal head through the MTP joint and this was sent to the lab for culture. Aerobic and anaerobic culture swabs of the wound bed were then taken and also sent for culture. There is no gross purulence encountered. The dorsum and the plantar aspect the foot was milked and there was no apparent purulent material. This area around the metatarsal was probed and once again, while inflamed, did not show signs of purulent material. I then irrigated the wound bed copiously with normal saline. Once again, there is healthy bleeding tissue without any signs of purulence. Some of the thicker tissue of the skin edges was debrided to allow closure. A [id number] closure was then performed on a deep layer with 2-0 Monocryl. The skin was reapproximated with a 3-0 nylon in a simple fashion. The foot was then cleaned and a dressing was placed. This dressing consisted of fluff gauze in the space between the third and fifth toe overwrapped with gauze, ABD, and Kerlix. This was secured with an Dharmesh wrap. He was placed to a postop shoe. I then the case all counts were correct. Cultures were sent to the lab. He will be partial weightbearing on the left foot with a postop shoe. This dressing will stay in place for at least 3 days to preferably 5 days. After that the dressing may come down and daily dressing changes can be performed utilizing some Xeroform at the wound, gauze within the space within the third and the fifth toe, and overwrapping with gauze wrap, Kerlix. Follow-up in the office in 10 to 14 days.
[2022-12-04] MEDS: Insulin Aspart 300 UNITS/3 ML PEN SC ×3 (09:08→16:53)
[2022-12-04] MEDS: Fenofibrate, Micronized 48 MG TAB PO (09:08)
[2022-12-04] MEDS: Empaglifozin 10 MG TAB 25 MG PO (09:08)
[2022-12-04] MEDS: Spironolactone 25 MG TAB PO ×2 (09:09→19:47)
--- NOTE | 2022-12-04 10:37 | W.ANESPOSTOP ---
Postoperative Evaluation Date, Time and Location Date Performed: 12/04/22 Time Performed: 10:37 Patient Location: Med/Surg Vital Signs Most Recent Imported Vital Signs: Most Recent Vital Signs Temp Pulse Resp BP Pulse Ox 36.5 C 81 16 136/85 96 12/04/22 08:49 12/04/22 08:49 12/04/22 08:49 12/04/22 08:49 12/04/22 08:49 Most Recent Vital Signs Temp Pulse Resp BP Pulse Ox 36.7 C 86 19 126/71 96 12/02/22 14:43 12/02/22 14:43 12/02/22 14:43 12/02/22 14:43 12/02/22 14:43 Pain Score Most Recent Pain Score: Most Recent Pain Score Pain Level 0 12/04/22 08:49 Assessment Mental Status: Awake (Alert & Oriented to Patient Baseline) Airway and Respiratory Function: Patent airway with normal (patient baseline) respiratory exam Cardiovascular Function: Hemodynamically Stable Hydration Status: Adequately Hydrated Nausea & Vomiting: No Nausea or Vomiting Pain: Pt. Denies Any Pain Peripheral Nerve Block: Patient did not receive a nerve block
[2022-12-04] MEDS: Acetaminophen 500 MG TAB 1000 MG PO ×2 (11:32→19:47)
--- NOTE | 2022-12-04 11:47 | PGE_ITS ---
Date of Service Date of service: 12/04/22 Time of Service: 11:47 Assessment and Plan Assessment and plan (1) Osteomyelitis of fourth toe of left foot: Status: Acute Assessment and plan: surgically amputated today by orthopedic surgery. will continue IV antibiotics for now. keep dressing clean and dry elevate. no pain secondary to neuropathy. 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: Status: Acute Assessment and plan: see above (3) Cellulitis of left toe: Status: Acute Assessment and plan: continue vanc/zosyn day 3 elevate (4) Diabetes mellitus type 2 in obese: Status: Acute Assessment and plan: hemoglobin A1C 8.2 blood sugars controlled here diabetic diet, sliding scale coverage with meals (5) HTN (hypertension): Status: Chronic Assessment and plan: continue home blood pressure meds and follow (6) Gout: Status: Chronic Assessment and plan: continue home medication (7) GERD (gastroesophageal reflux disease): Status: Chronic Assessment and plan: no symptoms (8) Discharge planning issues: Status: Acute Assessment and plan: home with no services once medically ready discussed with DR Caputo Subjective Subjective Patient reports: no new complaints, tolerating liquids well, tolerating a regular diet and afebrile; denies shortness of breath Exam Const General: cooperative, comfortable and no acute distress Nutritional Appearance: overweight Orientation: alert, awake and oriented x3 HENMT Head: normal to inspection, normocephalic and atraumatic Mouth: oral mucosae normal Chest Chest: normal inspection of the chest Resp Effort & Inspection: normal respiratory effort Auscultation: clear to auscultation bilaterally Cardio Rate: regular rate Rhythm: regular rhythm GI Inspection: normal to inspection Palpation: soft Skin Lesions: lesion noted Rashes: rashes noted Neuro General: patient alert, patient awake and patient oriented x3 Cognition: normal cognition Speech: speech normal Gait: normal gait Motor: muscle tone normal throughout Extrem Left lower extremity: foot (bulky dressing intact, no proximal erythema or edema) Objective Last Vital Signs Temp 36.7 C 12/04/22 11:16 Pulse 86 12/04/22 11:16 Resp 16 12/04/22 08:49 BP 128/76 12/04/22 11:16 Pulse Ox 94 12/04/22 11:16 Time Spent with Patient Time Spent with Patient: 25-34 minutes Time was spent: preparing to see the patient(eg.review tests), ordering medications,tests, procedures, referring, communicating with other health out of school hours care worker, indepentently interpreting results and counseling the patient
[2022-12-04] MEDS: Normal Saline Flush 10 ML SYR IVP ×2 (14:51→16:52)
[2022-12-04] MEDS: Enalapril 5 MG TAB 20 MG PO (19:47)
[2022-12-04] MEDS: Magnesium Gluconate 500 MG TAB 250 MG PO (21:28)
[2022-12-04] MEDS: Allopurinol 300 MG TAB PO (21:28)
[2022-12-04] MEDS: Gabapentin 300 MG CAP PO (21:28)
[2022-12-05] MEDS: VANCOMYCIN/WATER (PEG) 1.25 GM/250 ML BAG IV (01:08)
[2022-12-05 03:35] VITALS: BP 106/66; PULSE 87; RESP 17; TEMP 36.1; O2SAT 92
[2022-12-05] MEDS: PIPERACILLIN/TAZO 3.375 GM in Normal Saline 50 ML IVPB (05:48)
[2022-12-05 07:16] LABS: Abs Immature Grans 0.06 10^3/uL (0.0-0.06); Absolute Eosinophil Count 0.28 10^3/uL (0.0-0.7); Absolute Lymphocyte Count 1.57 10^3/uL (1.2-3.4); Absolute Monocyte Count 0.86 10^3/uL (0.1-0.8); Absolute Neutrophil Count 6.77 10^3/uL (1.2-6.7); Eosinophils % 2.9; HCT 44.1 % (40.0-50.0); HGB 14.8 g/dL (13.5-17.5); Immature Grans % 0.6; Lymphocytes % 16.3; MCH 27.3 pg (27.0-33.0); MCHC 33.6 % (32.0-36.0); MCV 81 fL (80-95); MPV 8.5 fL (8.0-11.0); Monocytes % 8.9; Neutrophils % 70.3; Platelet Count 305 10^3/uL (130-400); RBC 5.42 10^6/uL (4.36-5.78); RDW-SD 38.3 fL; WBC 9.64 10^3/uL (4.4-10.8)
[2022-12-05 07:30] LABS: Anion Gap 10.3 mmol/L (3-11); BUN 22 mg/dL (7-18); CO2 24.7 mmol/L (21.0-32.0); CREATININE 1.1 mg/dL (0.70-1.30); Calcium 8.7 mg/dL (8.5-10.1); Chloride 101 mmol/L (98-107); Estimated GFR 82.29 (mL/min/1.73m2); Glucose 154 mg/dL (74-106); Sodium 136 mmol/L (136-145)
[2022-12-05 07:33] LABS: C-Reactive Protein 1.73 mg/dL (0.0-0.3)
[2022-12-05 07:41] VITALS: BP 102/68; PULSE 84; RESP 18; TEMP 36.5; O2SAT 94
[2022-12-05] MEDS: Insulin Aspart 300 UNITS/3 ML PEN SC (07:57)
[2022-12-05] MEDS: Empaglifozin 10 MG TAB 25 MG PO (07:58)
[2022-12-05] MEDS: Spironolactone 25 MG TAB PO (07:58)
[2022-12-05] MEDS: Fenofibrate, Micronized 48 MG TAB PO (07:58)
--- NOTE | 2022-12-05 09:59 | DSE_ITS ---
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: (3) Cellulitis of left toe: Status: Acute (4) Diabetes mellitus type 2 in obese: Status: Acute (5) HTN (hypertension): Status: Chronic (6) Gout: Status: Chronic (7) GERD (gastroesophageal reflux disease): Status: Chronic (8) Discharge planning issues: Status: Deleted Discharge Plan Disposition Patient Disposition: Home Condition: Stable Discharge Details Reason For Visit: Diabetic Cellulitis Foot/Toe Admit Date/Time: 12/02/22 13:42 Admit Provider: Long Caputo Attending Provider: Long Caputo Primary Care Provider: Payam Mejia Hospital Course Hospital Course: This is a 47-year-old male patient with past medical history significant for diabetes mellitus type 2 gout previous toe amputation who presents to the emergency department for evaluation of a fourth toe infection on his left foot. He had been initially debrided by general surgery and they reevaluated him in the emergency department and did recommend additional debridement so he was taken to the OR by Dr. Connelly. In the emergency department he had been started on vancomycin and Zosyn and hospitalist services was contacted to admit him for IV antibiotics. An MRI obtained the following day did show additional abscesses and case was discussed with Dr. Smith from orthopedics for another opinion. Dr. Connelly had originally told the patient that he thought that the toe would need amputation but the patient was not on board with this at first so Dr. Smith did weigh in and after shared decision making the patient was agreeable to have his fourth toe amputated. He underwent the toe amputation on December 04. There were no complications and postoperatively he was brought back to the medical surgical unit antibiotics continued. Hemodynamically he remained stable. Due to his neuropathy he was not experiencing any pain. His cultures did ultimately grow group be strep and he was down stepped to cephalexin. He will be discharged home with a 4-week course and will follow-up with Dr. Smith outpatient. discussed with DR Caputo Home Meds and New Rx's Prescriptions: New cephalexin 500 mg capsule 500 mg PO QID Qty: 120 0RF Continued enalapril maleate 20 mg tablet 20 mg PO HS mupirocin 2 % ointment 1 applic topical BID metformin 500 mg Tablet 1,000 mg PO BID spironolactone 25 mg Tablet 25 mg PO BID Jardiance 10 mg Tablet 25 mg PO DAILY magnesium 250 mg Tablet 250 mg PO DAILY fenofibrate nanocrystallized 48 mg Tablet 48 mg PO DAILY ibuprofen 600 mg tablet 600 mg PO Q6H PRN (Reason: pain and inflammation) Qty: 60 0RF acetaminophen 500 mg Capsule 1,000 mg PO Q6H PRN gabapentin 300 mg Tablet 300 mg PO QHS allopurinol 300 mg Tablet 300 mg PO DAILY Discontinued ciprofloxacin HCl 500 mg tablet 500 mg PO BID Qty: 28 0RF Discharge Instructions Instructions: Toe Amputation (DC) Additional Instructions: Activity: You may bear weight on the left leg with the post-op shoe. I would avoid any weight bearing without the post op shoe or without a dressing. For the first week, I would recommend limited activity and elevation. Dressings: You should keep the initial dressing in place for 3-5 days. After that you may remove the initial dressing. The wound may get wet at that time but be sure to dry it completely before placing a new dressing. The new dressing should consist of some rolled or bunched gauze lightly filling the spa ce of the amputated toe and then a gauze wrap (Kerlix) going around the toes and forefoot and covering the end of the foot. You may also apply an NANCY wrap if so desired and usually going above the ankle will help hold it in palce. Medications: It is imperative to take your antibiotics as prescribed. Follow-up: With Dr. SMITH in 10-14 days. Stand Alone Forms: Nursing Discharge Form Referrals: Shay Smith MD [ [facility] STAFF PHYSICIAN] - (10 days) Activity:: post op shoe when ambulat Equipment/Supplies:: post op shoe Diet:: Carb Counting Discharge Orders Discharge Orders: Discharge Order (Routine); Ordered 12/05/22 Ordered By: Deedee Gonzalez Discharge Data Discharge Date/Time-TO BE ENTERED AT DEPARTURE: 12/05/22 11:24 DS: Summary Time Spent with Patient providing and/or coordinating discharge services: Less than 30 minutes Status at Discharge Functional status at discharge: independent ambulation Overall status at discharge: patient is progressing back to baseline Mental Status: mental status grossly normal Speech and Movement: speech and movement normal Mood: congruent mood Affect: normal affect Exam Const General: cooperative, comfortable and no acute distress Nutritional Appearance: overweight Orientation: alert, awake and oriented x3 HENMT Head: normal to inspection, normocephalic and atraumatic Mouth: oral mucosae normal Chest Chest: normal inspection of the chest Resp Effort & Inspection: normal respiratory effort Auscultation: clear to auscultation bilaterally Cardio Rate: regular rate Rhythm: regular rhythm GI Inspection: normal to inspection Palpation: soft Skin Lesions: lesion noted Rashes: rashes noted Neuro General: patient alert, patient awake and patient oriented x3 Cognition: normal cognition Speech: speech normal Gait: normal gait Motor: muscle tone normal throughout Extrem Left lower extremity: foot (bulky dressing intact, no proximal erythema or edema) Psych Mental Status: mental status grossly normal Speech and Movement: speech and movement normal Mood: congruent mood Affect: normal affect DS: Data Vitals/I&O Vitals and I&O: Vital Signs Temperature 36.5 C 12/05/22 07:41 Temperature Source Tympanic 12/05/22 07:41 Pulse 84 12/05/22 07:41 Pulse Rhythm Regular 12/05/22 09:40 Respiratory Rate 18 12/05/22 07:41 Respiratory Effort Normal, Non-Labored 12/05/22 09:40 Respiratory Depth Normal 12/05/22 09:40 Respiratory Pattern Normal 12/05/22 09:40 Blood Pressure 102/68 12/05/22 07:41 Blood Pressure Position Sitting 12/02/22 10:19 Pulse Oximetry 94 12/05/22 07:41 Oxygen Delivery Method Room Air 12/05/22 07:41 Oxygen Flow Rate 0 12/05/22 07:41 Pain Level 0 12/05/22 07:41 Intake & Output 12/04/22 12/04/22 12/05/22 11:59 23:59 11:59 Intake Total 658 / 1368 710 / 1368 600 / 600 Balance 658 / 1368 710 / 1368 600 / 600 Weight 123.196 kg Intake: IV 658 / 1008 350 / 1008 350 / 350 Oral 360 / 360 250 / 250 Other: Urine Color Yellow Urine Appearance Clear Clear Clear Comment independant pt is up ad mich voiding independently. pt denies dysuria Stool Size Small Stool Characteristics Formed Brown Voiding Methods Toilet Data Completed and Pending Labs on day of discharge: Labs from last 24 hours 12/05/22 12/05/22 12/05/22 06:45 06:45 06:45 WBC 9.64 RBC 5.42 Hgb 14.8 Hct 44.1 MCV 81 MCH 27.3 MCHC 33.6 RDW 13.0 Plt Count 305 MPV 8.5 Immature Gran % 0.6 Neutrophils % 70.3 Lymphocytes % 16.3 Monocytes % 8.9 Eosinophils % 2.9 Basophils % 1.0 Nucleated RBC % 0.0 Absolute Neutrophils 6.77 H Absolute Lymphocytes 1.57 Absolute Monocytes 0.86 H Absolute Eosinophils 0.28 Absolute Basophils 0.10 Sodium 136 Potassium 4.0 Chloride 101 Carbon Dioxide 24.7 Anion Gap 10.3 BUN 22 H Creatinine 1.1 Est GFR (CKD-EPI 2020) 82.29 Glucose 154 H Calcium 8.7 C-Reactive Protein 1.73 H 12/04/22 08:15 Toe - Left Fourth Digit Wound Culture - Pending 12/04/22 08:25 Toe - Left Fourth Digit Surgical Culture - Pending 12/04/22 08:25 Toe - Left Fourth Digit Anaerobic Culture - Pending 12/04/22 08:15 Toe - Left Fourth Digit Anaerobic Culture - Pending 12/02/22 14:23 Toe - Left Third Digit Anaerobic Culture - Pending Preliminary micro results at discharge 12/02/22 14:27 Surgical Culture - Preliminary Toe - Left Third Digit Streptococcus Agalactiae(Gp B) 12/02/22 14:26 Surgical Culture - Preliminary Toe - Left Third Digit Streptococcus Agalactiae(Gp B) 12/02/22 12:28 Wound Culture - Preliminary Toe - Left Fourth Digit Gram Positive Marli 12/02/22 12:35 Blood Culture - Preliminary Blood NO GROWTH 48 HOURS 12/04/22 08:15 Wound Culture - Pending Toe - Left Fourth Digit 12/04/22 08:25 Surgical Culture - Pending Toe - Left Fourth Digit 12/02/22 11:18 Blood Culture - Preliminary Blood NO GROWTH 48 HOURS 12/04/22 08:25 Anaerobic Culture - Pending Toe - Left Fourth Digit 12/04/22 08:15 Anaerobic Culture - Pending Toe - Left Fourth Digit 12/02/22 14:23 Anaerobic Culture - Pending Toe - Left Third Digit PFSH All Active Problems (Updated 12/06/22 @ 00:03 by BETTIE JOHNSON) DVT prophylaxis (Acute) Diabetes mellitus type 2 in obese (Acute) Atherosclerosis of [place] arteries of left leg with ulceration of other part of foot (Acute) Cellulitis of left toe (Acute) HTN (hypertension) (Chronic) Gout (Chronic) GERD (gastroesophageal reflux disease) (Chronic) Cardiomyopathy (Acute) LVEF 61% by echo in 07/2018, up from 23% in 10/2015. (Dr. Melvin) Diabetes mellitus (Chronic) Medical History Diabetic foot infection Diabetic ulcer of foot associated with diabetes mellitus due to underlying condition, limited to breakdown of skin Obesity (BMI 30-39.9) Surgical History H/O adenoidectomy History of bunionectomy of left great toe Hx of circumcision 05/13/21 Family History Mother Hypertension Social History Smoking/Tobacco Use Status: Former Tobacco Use Quit Date: 06/06/02 Smoking risk assessment performed?: Yes Alcohol Intake: current Alcohol Intake frequency: a few times a month Alcohol type: beer Drug use: Never Substance use type: does not use Do you feel safe at home: Yes Do you feel safe in your relationship?: Yes Time Spent with Patient Time Spent with Patient: <45 minutes Time was spent: preparing to see the patient(eg.review tests), ordering medications,tests, procedures, counseling the patient and care coordination
--- NOTE | 2022-12-05 16:49 | PDOC.CMDIS ---
Date of service: 12/05/22 Time of Service: 16:49 LACE Index Scoring Tool Questions: Length of Stay (in days): 3 Was the patient admitted via the E.D.?: Yes Comorbidities: Diabetes w/o Complication E.D. Visits: 1 Answers: Total Score: 8 Risk of Readmission: Low Risk Care Management Discharge Plan Reason for Hospitalization: Cellulites of left toe Discharge Plan: Ze will discharge home with a post op shoe and a prescription for a course of antibiotics. He will follow up with his surgeon and PCP and plan of care and transport via private vehicle with . Patient/Family Education Needs: Review discharge instructions, limitations, medications and plan to follow up with community providers. Discuss ask me three.
== END 2022-12-05 11:24 | disposition home or self-care (01) | DRG 617 ==
LOC: DSU 15:07 → ER 15:07 → MS 15:11
PROVIDERS: Nurse Practitioner Acute Care; Student in an Organized Health Care Education/Training Program; Surgery; Admitting Provider Internal Medicine; Emergency Provider Physician Assistant; PCP Internal Medicine; Visit Provider Internal Medicine
PROC: 0J9R0ZZ Drainage of Left Foot Subcutaneous Tissue and Fascia, Open Approach (ICD-10-PCS; CPT 11043; principal; 2022-12-02 13:30)
PROC: 0Y6W0Z0 Detachment at Left 4th Toe, Complete, Open Approach (ICD-10-PCS; CPT 28820; principal; 2022-12-04 06:55)
DX: E11.69 Type 2 diabetes mellitus with other specified complication (principal); I42.9 Cardiomyopathy, unspecified; M86.8X7 Other osteomyelitis, ankle and foot; L03.116 Cellulitis of left lower limb; E11.628 Type 2 diabetes mellitus with other skin complications; L97.524 Non-pressure chronic ulcer of other part of left foot with necrosis of bone; E11.621 Type 2 diabetes mellitus with foot ulcer; Z89.422 Acquired absence of other left toe(s); I10 Essential (primary) hypertension; M10.9 Gout, unspecified; K21.9 Gastro-esophageal reflux disease without esophagitis; Z79.84 Long term (current) use of oral hypoglycemic drugs; E66.9 Obesity, unspecified; Z68.36 Body mass index [BMI] 36.0-36.9, adult; I70.245 Atherosclerosis of native arteries of left leg with ulceration of other part of foot; Z87.891 Personal history of nicotine dependence; B95.61 Methicillin susceptible Staphylococcus aureus infection as the cause of diseases classified elsewhere; B95.1 Streptococcus, group B, as the cause of diseases classified elsewhere; E11.42 Type 2 diabetes mellitus with diabetic polyneuropathy
CPT/HCPCS: 11043; 28820; 36415; 73719; 80048; 80053; 82962; 87040; 87077; 96365; 96368; 99285; 73660; 83605; 85025; 86140; 87070; 87075; 87186; 87205; 99223; 99233; 99238; J2001; J2543

== ENCOUNTER → 2023-01-17 13:50 | Outpatient (CLI) | payer BC, SELFPAY ==
--- NOTE | 2023-01-17 13:52 | DI.RAD_ITS ---
Exam(s) XR FOOT RT COMPLETE EXAM: XR FOOT RT COMPLETE CLINICAL HISTORY: TYPE 2 DIABETES MELLITUS W FOOT ULCER E11.621-CHRONIC ULCER L97.509. TECHNIQUE: 2D digital imaging was performed. Three views. COMPARISON: None FINDINGS: BONES: No acute fracture is present. Chronic appearing deformity of the distal 5th metatarsal. No b ayo destructive lesion is seen. JOINTS: No dislocation present. SOFT TISSUE: BB marker placed over 4th toe. No foreign body. IMPRESSION: No acute bony erosions identified. DATA REPOSITORY: RADIATION DOSE DELIVERED:
== END ==
PROVIDERS: PCP Internal Medicine; Visit Provider Podiatrist
DX: E11.621 Type 2 diabetes mellitus with foot ulcer (principal)
CPT/HCPCS: 73630

== ENCOUNTER 2023-01-19 15:53 | Outpatient (REF) | payer BC, SELFPAY | END 2023-01-19 15:54 | disposition home or self-care (01) | LOC: LBN 15:53 | PROVIDERS: PCP Internal Medicine; Visit Provider Podiatrist | DX: E11.621 Type 2 diabetes mellitus with foot ulcer (principal); L97.511 Non-pressure chronic ulcer of other part of right foot limited to breakdown of skin | CPT/HCPCS: 87077; 87070; 87075; 87186; 87205 ==

== ENCOUNTER 2023-01-31 05:59 | Day surgery (SDC) | payer BC, SELFPAY ==
[2023-01-31 06:15] VITALS: BP 128/88; PULSE 69; RESP 18; TEMP 36.5; O2SAT 95
[2023-01-31] MEDS: Lactated Ringers 1,000 ML 80 ML IV (06:49)
--- NOTE | 2023-01-31 06:49 | ANES.PREOP_ITS ---
General Info Date of Service Date Performed: 01/31/23 Height: 6 ft Weight: 122.6 kg Body Mass Index (BMI): 36.6 Surgical Procedure: Operation Date: 01/31/23 07:40 Proposed Procedure Side Surgeon p Toe Amputation, Rt Fourth Toe Right Francoise Davila DPM Meds Allergies and Home Medications Allergies Allergy/AdvReac Type Severity Reaction Status Date / Time No Known Allergies Allergy Verified 01/31/23 06:22 Home Medication Medication Instructions Recorded empagliflozin 10 mg tablet 25 mg PO DAILY 05/13/21 (Jardiance) metformin 500 mg tablet 1,000 mg PO BID 05/13/21 spironolactone 25 mg tablet 25 mg PO BID 05/13/21 fenofibrate nanocrystallized 48 mg 48 mg PO DAILY 05/15/21 tablet ibuprofen 600 mg tablet 600 mg PO Q6H PRN pain and 05/15/21 inflammation #60 tabs magnesium 250 mg tablet 250 mg PO DAILY 05/15/21 acetaminophen 500 mg capsule 1,000 mg PO Q6H PRN 07/11/21 allopurinol 300 mg tablet 300 mg PO DAILY 07/11/21 gabapentin 300 mg tablet 300 mg PO QHS 07/11/21 enalapril maleate 20 mg tablet 20 mg PO HS 02/09/22 mupirocin 2 % topical ointment 1 applic topical BID 02/09/22 sulfamethoxazole 800 1 tab PO BID #14 tabs 01/19/23 mg-trimethoprim 160 mg tablet (Bactrim DS) gentamicin 0.1 % topical cream 1 applic topical TID #30 grams 01/24/23 Current Visit Medications: Current Medications Generic Name Dose Route Start Last Admin Trade Name Diaz PRN Reason Stop Dose Admin Ringer's Solution 1,000 mls @ 80 mls/hr 01/31/23 06:00 01/31/23 06:49 IV 02/27/23 23:59 80 mls/hr INFUSION CARL Administration IV Miscellaneous Supplies 1 each 01/31/23 06:00 Iv Access IV 02/27/23 23:59 DIRECTED CARL Sodium Chloride 0 ml 01/31/23 06:00 Normal Saline Flush 10 Ml Syr IV 02/27/23 23:59 PRN PRN Sodium Chloride 0 ml 01/31/23 06:00 Normal Saline 10 Ml Vial IJ 02/27/23 23:59 DIRECTED PRN Sterile Water 0 ml 01/31/23 06:00 Water,Injection,Sterile 10 Ml Vial IJ 02/27/23 23:59 DIRECTED PRN PFSH Active Problems Active Problems: Problem Status Onset Code Cellulitis L03.90 Ulcer of right foot with fat layer exposed L97.512 Diabetic toe ulcer E11.621, L97.509 Status post amputation of lesser toe of left foot 12/04/22 Z89.422 DVT prophylaxis Z29.9 Diabetes mellitus type 2 in obese E11.69, E66.9 Atherosclerosis of [place] arteries of left leg with ulceration of other part of foot I70.245 Cellulitis of left toe L03.032 HTN (hypertension) I10 Gout M10.9 GERD (gastroesophageal reflux disease) K21.9 Cardiomyopathy I42.9 Diabetes mellitus E11.9 Medical History Medical History Diabetes mellitus with foot ulcer due to multiple causes Diabetic foot infection Diabetic ulcer of foot associated with diabetes mellitus due to underlying condition, limited to breakdown of skin 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 Obesity (BMI 30-39.9) Surgical History Surgical History H/O adenoidectomy History of bunionectomy of left great toe Hx of circumcision 05/13/21 Tobacco Smoking/Tobacco Use Status: Former Tobacco Use Alcohol Alcohol Intake: current Alcohol intake frequency: a few times a month Alcohol type: beer Substance Use Substance use: Never Substance use type: does not use Vital Signs and Lab Results Vital Signs Most Recent Vital Signs in EMR: Most Recent Vital Signs Temp Pulse Resp BP Pulse Ox 36.5 C 69 18 128/88 95 01/31/23 06:15 01/31/23 06:15 01/31/23 06:15 01/31/23 06:15 01/31/23 06:15 Lab Results Blood Type / Crossmatch: No Data to Display Complete Blood Count: No Data to Display Complete Metabolic Panel: No Data to Display Liver Function Panel: No Data to Display Coagulation Panel: No Data to Display Cardiac Panel: No Data to Display Arterial Blood Gas: No Data to Display Venous Blood Gas: No Data to Display Pancreas Panel: No Data to Display Thyroid Panel: No Data to Display Infectious Disease: No Data to Display Blood Cultures: No Data to Display Toxicology Panel: No Data to Display Imaging and Studies Imaging and Studies Study information below may be from another EMR and interpreted by another provider. Please see original notes in EMR for more complete details. [place]ogram [place] [facility] [place]: 1. Technically limited study. 2. The left ventricular chamber size is normal. Left ventricular wall thickness is normal. There is normal global left ventricular systolic function. The quantitative left ventricular ejection fraction by biplane Stuart's method is 61%. There are no left ventricular segmental wall motion abnormalities. Doppler assessment is consistent with normal left sided filling pressure. 3. Right ventricular chamber size, wall thickness, and systolic function are within normal limits. Pulmonary artery hypertension could not be assessed due to inadequate tricuspid regurgitation jet. 4. The left atrium is normal in size. The right atrium appears normal. 5. There is no hemodynamically significant valve disease. 6. See remainder of report for additional findings. Anesthesia Assessment and Plan Anesthesia History Personal History: No History of Anesthesia Complications Family History: No Family History of Anesthesia Complications Exercise Tolerance Exercise Tolerance: Metabolic Equivalents>4 Pertinent Negatives Pertinent Negatives: No Symptoms of GERD Cardiac & Pulmonary Exam Cardiac Exam: Normal S1/S2 Heart Sounds Pulmonary Exam: Clear Bilateral Breath Sounds Implantable Cardiac Device Does patient have a Pacemaker or an ICD?: No Airway Exam Known Difficult Airway: No Mallampati Class: 2 Mouth Opening: Normal (> 3cm) Thyromental Distance: Greater than 3 cm Neck Range of Motion: Full ROM Neck Circumference: Normal Teeth Condition: Generalized Poor Dentition and Loose or Chipped ASA Classification ASA Score: ASA 3 Emergency Case?: No NPO Status NPO Status: NPO Clears >2 hours, Solids >8 hours Anesthesia Plan Resuscitation Status: Full Code Anesthesia Technique: General Anesthesia Airway Planned: Natural Airway Monitors Used: Standard Monitors
[2023-01-31 06:50] VITALS: BMI 36.6
[2023-01-31 07:40] LABS: Abs Immature Grans 0.02 10^3/uL (0.0-0.06); Absolute Basophil Count 0.06 10^3/uL (0.0-0.2); Absolute Eosinophil Count 0.26 10^3/uL (0.0-0.7); Absolute Lymphocyte Count 1.71 10^3/uL (1.2-3.4); Absolute Monocyte Count 0.61 10^3/uL (0.1-0.8); Absolute Neutrophil Count 4.75 10^3/uL (1.2-6.7); Basophils % 0.8; Eosinophils % 3.5; HCT 42.1 % (40.0-50.0); HGB 14.3 g/dL (13.5-17.5); Immature Grans % 0.3; Lymphocytes % 23.1; MCV 82 fL (80-95); MPV 8.6 fL (8.0-11.0); Monocytes % 8.2; Neutrophils % 64.1; Platelet Count 241 10^3/uL (130-400); RBC 5.11 10^6/uL (4.36-5.78); RDW 13.2 % (11.8-14.1); RDW-SD 39.6 fL; WBC 7.41 10^3/uL (4.4-10.8)
[2023-01-31 07:59] LABS: Anion Gap 9.8 mmol/L (3-11); BUN 29 mg/dL (7-18); CO2 25.2 mmol/L (21.0-32.0); CREATININE 1.3 mg/dL (0.70-1.30); Calcium 9.1 mg/dL (8.5-10.1); Chloride 101 mmol/L (98-107); Estimated GFR 67.34 (mL/min/1.73m2); Glucose 133 mg/dL (74-106); Potassium 4.4 mmol/L (3.5-5.1); Sodium 136 mmol/L (136-145)
--- NOTE | 2023-01-31 08:20 | AMP_PTH ---
PATIENT: Ze Sauceda JR LOC: [facility] U#:[id number] AGE/SX: 47/M ROOM: RE01/31/[address]: Francoise Davila DPM : 1975 BED: DIS: 01/31/2023 SPEC #: [id number] RECD: 01/31/23 12:22 STATUS: [place] REAlex #: [id number] JENNIFER: 01/31/23 08:[address]: Francoise Davila DEPT: Surgical Specimen RECD BY: Bethany Lagunas ENTERED: 01/31/23 12:23 SP TYPE: Amputation OTHR DR: Payam Mejia Tissues: 1 - AMPUTATION FINGERS/TOES(NOT TRAUMA) Procedures: GROSS AND MICRO LEVEL 4 DECALCIFICATION Comments: [id number]
[2023-01-31] MEDS: Lidocaine 2% Multi-Dose 20 ML VIAL (08:34)
[2023-01-31 08:38] VITALS: BP 94/60; PULSE 85; RESP 17; TEMP 36.5; O2SAT 96
--- NOTE | 2023-01-31 08:39 | W.PM.OP ---
Date of service: 01/31/23 Time of Service: 08:00 Operative Note Operative Note DATE OF PROCEDURE: 01/31/23 PRE-OP DIAGNOSIS: Non healing ulcer, possible osteomyelitis, right fourth toe. POST-OP DIAGNOSIS: same PROCEDURE: Partial amputation right fourth toe SURGEON: Francoise Davila ANESTHESIA TYPE: Local By Surgeon and General:No Airway Refer to Anesthesia Record ESTIMATED BLOOD LOSS: 0 PATHOLOGY: other (Right fourth toe soft tissue and bone) TOURNIQUET TIME: 18 COMPLICATIONS: None Patient was transported to: PACU Patient's condition: stable Implants: None Indications: This is a 47-year-old diabetic male patient with a nonhealing ulcer to the right fourth toe. Patient had been treating the wound with local wound care and debridement in office. Patient elected to proceed with partial amputation as he understood that there was probe to bone and capsule and would ultimately require an amputation. Patient elected amputation for faster healing time. Patient was advised on risks benefits and possible complications of the procedure including but not limited to bleeding and pain, nerve pain, CRPS, hematoma formation, seroma formation, wound dehiscence and nonhealing, need for further surgery or amputation, DVT, PE, stroke [place] or even with anesthesia. Patient understands and assumes all risks. No guarantees or warranties were made or implied. Consent form signed reviewed in chart. Medical clearance in. No contraindications were noted to the procedure. Findings: Full-thickness ulcer with probe to bone and capsule. Procedure Description: Patient was identified in preop holding site was marked. Patient was brought to the operating room placed on the operating table with the anesthesia team in supine position. After general anesthesia the right lower extremity was scrubbed prepped and draped in the usual aseptic manner after tourniquet was slight. The fourth toe digital block was performed using 2% lidocaine plain 10 mL. A timeout was then carried out. The right lower extremity was exsanguinated with an Esmarch and the tourniquet was then inflated. Attention was directed to the right fourth toe where a full-thickness ulcer noted laterally. An incision was planned circumferentially around the fourth toe while removing the ulcer with a skin marker. An incision was then made using a sterile #15 blade circumferentially around the toe the incision was deepened through the skin and soft tissue until the bone was reached and the soft tissue was reflected and retracted both proximally and distally thus exposing the head of the proximal phalanx which was then resected using of the bone saw. The soft tissue and bone were sent to pathology. The incision site was then flushed with copious amounts of sterile saline. The tourniquet was then deflated. CFT was noted to have returned. No excessive bleeding was noted. The incision was then reapproximated and coapted using 3-0 Prolene. Dressings were then applied using Xeroform gauze, 4 x 4, Kerlix and an Dharmesh wrap. Patient tolerated the procedure well and was vital signs able and vascular status intact to the right lower extremity 1 was transferred to PACU for further monitoring. Patient is to be discharged home when stable. Patient is to keep the right lower extremity elevated at all times. He may heel touch for ambulation. He is to keep the dressings clean dry and intact. Patient has an appointment scheduled in office for .
[2023-01-31 09:01] VITALS: BP 102/68; PULSE 68; RESP 18; TEMP 36.4; O2SAT 95
--- NOTE | 2023-01-31 09:02 | W.ANESPOSTOP ---
Postoperative Evaluation Date, Time and Location Date Performed: 01/31/23 Time Performed: 09:02 Patient Location: Day Surgery Unit Vital Signs Most Recent Imported Vital Signs: Most Recent Vital Signs Temp Pulse Resp BP Pulse Ox 36.5 C 85 17 94/60 L 96 01/31/23 08:38 01/31/23 08:38 01/31/23 08:38 01/31/23 08:38 01/31/23 08:38 Pain Score Most Recent Pain Score: Most Recent Pain Score Pain Level 0 01/31/23 08:38 Assessment Mental Status: Awake (Alert & Oriented to Patient Baseline) Airway and Respiratory Function: Patent airway with normal (patient baseline) respiratory exam Cardiovascular Function: Hemodynamically Stable Hydration Status: Adequately Hydrated Nausea & Vomiting: No Nausea or Vomiting Pain: Pt. Denies Any Pain Peripheral Nerve Block: Patient did not receive a nerve block
--- NOTE | 2023-01-31 15:25 | PDOC.DSDIS_ITS ---
Date of service: 01/31/23 Time of Service: 07:30 Discharge Plan Disposition Patient Disposition: Home Condition: Good Discharge Details Attending Provider: Francoise Davila Primary Care Provider: Payam Mejia Home Meds and New Rx's Prescriptions: No Action enalapril maleate 20 mg tablet 20 mg PO HS mupirocin 2 % ointment 1 applic topical BID sulfamethoxazole-trimethoprim [Bactrim DS] 800-160 mg tablet 1 tab PO BID Qty: 14 0RF gentamicin 0.1 % cream 1 applic topical TID Qty: 30 0RF metformin 500 mg Tablet 1,000 mg PO BID spironolactone 25 mg Tablet 25 mg PO BID Jardiance 10 mg Tablet 25 mg PO DAILY magnesium 250 mg Tablet 250 mg PO DAILY fenofibrate nanocrystallized 48 mg Tablet 48 mg PO DAILY ibuprofen 600 mg tablet 600 mg PO Q6H PRN (Reason: pain and inflammation) Qty: 60 0RF acetaminophen 500 mg Capsule 1,000 mg PO Q6H PRN gabapentin 300 mg Tablet 300 mg PO QHS allopurinol 300 mg Tablet 300 mg PO DAILY Discharge Instructions Additional Instructions: Please keep the dressings clean dry and intact. Keep right lower extremity elevated at all times. Use a surgical shoe for ambulation. He is heel touch only. Stand Alone Forms: Anesthesia Discharge Inst., Podiatry Instructions-DSU, Chau Long ([facility]U) Referrals: Francoise Davila DPM [[facility] STAFF PHYSICIAN] - 02/03/23 9:45 am Activity:: Elevate Remove Dressings/Wound Care:: Do Not Remove Shower/Bathe:: Cover Diet:: As Tolerated Discharge Orders Discharge Orders: Discharge Order (Routine); Ordered 01/31/23 Ordered By: Francoise Davila Other Ambulatory Orders: XR foot RT complete (Routine) Timeframe: [id number] Facility: [facility] - Location: DIAGNOSTIC IMAGING Ordered By: Francoise Davila Discharge Data Discharge Date/Time-TO BE ENTERED AT DEPARTURE: 01/31/23 09:36 DS: Diagnosis Discharge Diagnosis (1) Diabetic toe ulcer: Start date: 01/31/23 Start time: 15:26 Status: Acute (2) Ulcer of right foot with fat layer exposed: Status: Acute (3) Cellulitis: Status: Acute
== END 2023-01-31 09:36 | disposition home or self-care (01) ==
PROVIDERS: PCP Internal Medicine; Visit Provider Podiatrist
PROC: (CPT 28825; principal; 2023-01-31 07:30)
DX: E11.621 Type 2 diabetes mellitus with foot ulcer; L97.512 Non-pressure chronic ulcer of other part of right foot with fat layer exposed; E11.42 Type 2 diabetes mellitus with diabetic polyneuropathy; I10 Essential (primary) hypertension; M86.171 Other acute osteomyelitis, right ankle and foot; M86.671 Other chronic osteomyelitis, right ankle and foot
CPT/HCPCS: 28825; 36415; 80048; 88300; 88305; 85025; 88311; J0690; J3010; J3490

== ENCOUNTER → 2023-02-01 01:22 | Outpatient (CLI) | payer BC, SELFPAY ==
--- NOTE | 2023-02-01 09:43 | DI.RAD_ITS ---
Exam(s) XR FOOT RT COMPLETE EXAM: XR FOOT RT COMPLETE CLINICAL HISTORY: Post op, ULCER RT FOOT WITH FAT LAYER EXPOSED, L97.512. TECHNIQUE: 2D digital imaging was performed of the right foot. Three images were obtained. AP, obl ique and lateral views were obtained. COMPARISON: CR XR FOOT RT COMPLETE from 01/17/2023 FINDINGS: BONES: No acute fracture is present. No bony destructive lesion is seen. Since the prior examination there has been an amputation of the 4th toe to the level of the mid shaft of the proximal phalanx. N o destructive changes are seen. There is an old deformity of the 5th metatarsal. JOINTS: No dislocation present. Degenerative changes are seen in the foot particularly at the 1st MTP joint. SOFT TISSUE: Normal. IMPRESSION: Status post amputation of the 4th toe as described. DATA REPOSITORY: RADIATION DOSE DELIVERED:
== END ==
PROVIDERS: PCP Internal Medicine; Visit Provider Podiatrist
DX: Z98.890 Other specified postprocedural states (principal)
CPT/HCPCS: 73630

== ENCOUNTER 2023-03-10 12:06 | Day surgery (SDC) | payer BC, SELFPAY ==
[2023-03-10 12:18] VITALS: BP 115/63; PULSE 71; RESP 16; TEMP 36.6; O2SAT 98
--- NOTE | 2023-03-10 12:40 | W.PREOPHP ---
Assessment and Plan Assessment and plan (1) Ulcer of right foot with fat layer exposed: Status: Acute Assessment and plan: Ze is a 47-year-old male with diabetes who has an ongoing ulcer of the lateral aspect of the remnant fourth toe. He underwent a amputation through the proximal phalanx of the fourth toe but unfortunately this has a extension and varus deformity with an ongoing wound which is draining constant clear fluid and tracking down to bone. Given this finding I recommend we proceed with revision amputation in the form of a disarticulation of the fourth MTP joint. He had a similar procedure performed on myself on the left side with good results. Once again I reviewed the risk of this procedure to include bleeding, infection, wound healing difficulties, need for further surgeries. Despite these risk, he elects to proceed. History of Present Illness History of Present Illness Chief Complaint: Right fourth toe ulceration and deformity Narrative: Ze is a 47-year-old who I know previously from a left fourth toe diabetic wound infection which resulted in complete amputation and disarticulation of the MTP joint the fourth on the left side. He recovered well from this. However, he subsequently developed an ulceration and infection about the right fourth toe. He underwent amputation by Dr. Davila of podiatry however this is a transphalangeal amputation to the proximal phalanx. He has had an ongoing wound about the fourth toe. This has prevented him from being able to return to work fully due to ongoing wound with dressing changes. There is been a constant drainage of some clear type fluid requiring dressings at all times about the toe. This has seemingly gotten worse over the last week or so. Furthermore, he has had deformity of the fourth toe and is unhappy with his appearance in an extended position. He denies any other fever or chills. He does report much better diabetes control. No chest pain or shortness of breath. Review of Systems All systems reviewed & are unremarkable except as noted in HPI and below PFSH All Active Problems Cardiomyopathy (Acute) LVEF 61% by echo in 07/2018, up from 23% in 10/2015. (Dr. Melvin) Gout (Chronic) Diabetes mellitus (Chronic) HTN (hypertension) (Chronic) DVT prophylaxis (Acute) GERD (gastroesophageal reflux disease) (Chronic) Atherosclerosis of [place] arteries of left leg with ulceration of other part of foot (Acute) Diabetes mellitus type 2 in obese (Acute) Diabetic toe ulcer (Acute) Ulcer of right foot with fat layer exposed (Acute) Cellulitis (Acute) Medical History Diabetes mellitus with foot ulcer due to multiple causes Diabetic foot infection Diabetic ulcer of foot associated with diabetes mellitus due to underlying condition, limited to breakdown of skin 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 Smith s/p I&D of left toe - Dr. Connelly on 12/02/2022 Family History Mother Hypertension Social History Smoking/Tobacco Use Status: Former Tobacco Use Quit Date: 06/06/02 Smoking risk assessment performed?: Yes Alcohol Intake: current Alcohol Intake frequency: a few times a month Alcohol type: beer Drug use: Never Substance use type: does not use Housing: house Additional Social history: unable to assess [facility] Allergies and Home Medications Allergies Allergy/AdvReac Type Severity Reaction Status Date / Time No Known Allergies Allergy Verified 03/10/23 12:15 Home Medications Medication Instructions Recorded Confirmed Type empagliflozin 10 mg tablet 25 mg PO DAILY 05/13/21 03/10/23 History (Jardiance) metformin 500 mg tablet 1,000 mg PO BID 05/13/21 03/10/23 History spironolactone 25 mg tablet 25 mg PO BID 05/13/21 03/10/23 History fenofibrate nanocrystallized 48 mg 48 mg PO DAILY 05/15/21 03/10/23 History tablet ibuprofen 600 mg tablet 600 mg PO Q6H PRN pain and 05/15/21 03/10/23 Rx inflammation #60 tabs magnesium 250 mg tablet 250 mg PO DAILY 05/15/21 03/10/23 History acetaminophen 500 mg capsule 1,000 mg PO Q6H PRN 07/11/21 03/10/23 History allopurinol 300 mg tablet 300 mg PO DAILY 07/11/21 03/10/23 History gabapentin 300 mg tablet 300 mg PO QHS 07/11/21 03/10/23 History enalapril maleate 20 mg tablet 20 mg PO HS 02/09/22 03/10/23 History Exam Const General: cooperative, healthy appearing, comfortable and no acute distress Resp Effort & Inspection: normal respiratory effort Auscultation: clear to auscultation bilaterally Cardio Rate: regular rate Rhythm: regular rhythm Extrem Other: Evaluation of the right foot shows a amputation of a portion of the fourth toe. There is a full-thickness wound seen over the lateral aspect of the remnant fourth toe. This tracks down to bone with some clear fluid draining. No extending erythema. No streaking erythema. No expressible purulent material. The toe has an extended deformity with some varus, abutting the base of the third toe with a small callus over the tip of the toe itself. It is not able to be flexed passively no pain with passive MTP joint motion of the fourth toe. No other ulcerations or skin defects are appreciated. Capillary refill less than 3 seconds. Down to neutral. Results Last Vital Signs Temp 36.6 C 03/10/23 12:18 Pulse 71 03/10/23 12:18 Resp 16 03/10/23 12:18 BP 115/63 03/10/23 12:18 Pulse Ox 98 03/10/23 12:18
[2023-03-10] MEDS: Lactated Ringers 1,000 ML 80 ML IV (12:43)
--- NOTE | 2023-03-10 12:55 | ANES.PREOP_ITS ---
General Info Date of Service Date Performed: 03/10/23 Height: 6 ft 1 in Weight: 119.5 kg Body Mass Index (BMI): 34.7 Surgical Procedure: Operation Date: 03/10/23 13:40 Proposed Procedure Side Surgeon p Right 4th toe amputation through MCP joint Right Shay Smith MD Meds Allergies and Home Medications Allergies Allergy/AdvReac Type Severity Reaction Status Date / Time No Known Allergies Allergy Verified 03/10/23 12:15 Home Medication Medication Instructions Recorded empagliflozin 10 mg tablet 25 mg PO DAILY 05/13/21 (Jardiance) metformin 500 mg tablet 1,000 mg PO BID 05/13/21 spironolactone 25 mg tablet 25 mg PO BID 05/13/21 fenofibrate nanocrystallized 48 mg 48 mg PO DAILY 05/15/21 tablet ibuprofen 600 mg tablet 600 mg PO Q6H PRN pain and 05/15/21 inflammation #60 tabs magnesium 250 mg tablet 250 mg PO DAILY 05/15/21 acetaminophen 500 mg capsule 1,000 mg PO Q6H PRN 07/11/21 allopurinol 300 mg tablet 300 mg PO DAILY 07/11/21 gabapentin 300 mg tablet 300 mg PO QHS 07/11/21 enalapril maleate 20 mg tablet 20 mg PO HS 02/09/22 Current Visit Medications: Current Medications Generic Name Dose Route Start Last Admin Trade Name Freq PRN Reason Stop Dose Admin Ringer's Solution 1,000 mls @ 80 mls/hr 03/10/23 06:00 03/10/23 12:43 IV 04/08/23 23:59 80 mls/hr INFUSION CARL Administration Cefazolin Sodium 3,000 mg/ 100 mls @ 200 mls/hr 03/10/23 06:00 Sodium Chloride IVPB 03/10/23 18:00 PREOP CARL IV Miscellaneous Supplies 1 each 03/10/23 06:00 Iv Access IV 04/08/23 23:59 DIRECTED CARL Sodium Chloride 0 ml 03/10/23 06:00 Normal Saline Flush 10 Ml Syr IV 04/08/23 23:59 PRN PRN Sodium Chloride 0 ml 03/10/23 06:00 Normal Saline 10 Ml Vial IJ 04/08/23 23:59 DIRECTED PRN Sterile Water 0 ml 03/10/23 06:00 Water,Injection,Sterile 10 Ml Vial IJ 04/08/23 23:59 DIRECTED PRN [facility] Active Problems Active Problems: Problem Status Onset Code Cardiomyopathy I42.9 Gout M10.9 Diabetes mellitus E11.9 HTN (hypertension) I10 DVT prophylaxis Z29.9 GERD (gastroesophageal reflux disease) K21.9 Atherosclerosis of [place] arteries of left leg with ulceration of other part of foot I70.245 Diabetes mellitus type 2 in obese E11.69, E66.9 Diabetic toe ulcer E11.621, L97.509 Ulcer of right foot with fat layer exposed L97.512 Cellulitis L03.90 Medical History Medical History Diabetes mellitus with foot ulcer due to multiple causes Diabetic foot infection Diabetic ulcer of foot associated with diabetes mellitus due to underlying condition, limited to breakdown of skin 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 Smith s/p I&D of left toe - Dr. Connelly on 12/02/2022 Tobacco Smoking/Tobacco Use Status: Former Tobacco Use Alcohol Alcohol Intake: current Alcohol intake frequency: a few times a month Alcohol type: beer Substance Use Substance use: Never Substance use type: does not use Vital Signs and Lab Results Vital Signs Most Recent Vital Signs in EMR: Most Recent Vital Signs Temp Pulse Resp BP Pulse Ox 36.6 C 71 16 115/63 98 03/10/23 12:18 03/10/23 12:18 03/10/23 12:18 03/10/23 12:18 03/10/23 12:18 Lab Results Blood Type / Crossmatch: No Data to Display Complete Blood Count: No Data to Display Complete Metabolic Panel: No Data to Display Liver Function Panel: No Data to Display Coagulation Panel: No Data to Display Cardiac Panel: No Data to Display Arterial Blood Gas: No Data to Display Venous Blood Gas: No Data to Display Pancreas Panel: No Data to Display Thyroid Panel: No Data to Display Infectious Disease: No Data to Display Blood Cultures: No Data to Display Toxicology Panel: No Data to Display Imaging and Studies Imaging and Studies Study information below may be from another EMR and interpreted by another provider. Please see original notes in EMR for more complete details. Echocardiogram Summary: 07/13/2018 at [facility] SUMMARY: 1. Technically limited study. 2. The left ventricular chamber size is normal. Left ventricular wall thickness is normal. There is normal global left ventricular systolic function. The quantitative left ventricular ejection fraction by biplane Stuart's method is 61%. There are no left ventricular segmental wall motion abnormalities. Doppler assessment is consistent with normal left sided filling pressure. 3. Right ventricular chamber size, wall thickness, and systolic function are within normal limits. Pulmonary artery hypertension could not be assessed due to inadequate tricuspid regurgitation jet. 4. The left atrium is normal in size. The right atrium appears normal. 5. There is no hemodynamically significant valve disease. 6. See remainder of report for additional findings. Anesthesia Assessment and Plan Anesthesia History Personal History: No History of Anesthesia Complications Family History: No Family History of Anesthesia Complications Exercise Tolerance Exercise Tolerance: Metabolic Equivalents>4 Pertinent Negatives Pertinent Negatives: No Symptoms of GERD, No Major Cardiovascular Symptoms or Complaints, No Major Pulmonary Symptoms or Complaints and No History of CVA/TIA Cardiac & Pulmonary Exam Cardiac Exam: Normal S1/S2 Heart Sounds Pulmonary Exam: Clear Bilateral Breath Sounds Implantable Cardiac Device Does patient have a Pacemaker or an ICD?: No Airway Exam Known Difficult Airway: No Mallampati Class: 2 Mouth Opening: Normal (> 3cm) Thyromental Distance: Greater than 3 cm Neck Range of Motion: Full ROM Neck Circumference: Normal Teeth Condition: Generalized Poor Dentition and Loose or Chipped ASA Classification ASA Score: ASA 3 Emergency Case?: No NPO Status NPO Status: NPO Clears >2 hours, Solids >8 hours Anesthesia Plan Resuscitation Status: Full Code Anesthesia Technique: General Anesthesia Airway Planned: Natural Airway Monitors Used: Standard Monitors
[2023-03-10 13:06] VITALS: BMI 34.7
[2023-03-10] MEDS: ceFAZolin 3,000 MG in Normal Saline 100 ML 200 MG IVPB (13:53)
[2023-03-10] MEDS: Bupivacaine 0.5% Pres-Free 30 ML VIAL (14:09)
[2023-03-10] MEDS: Lidocaine 1% Pres-Free 30 ML VIAL (14:09)
[2023-03-10 14:39] VITALS: BP 116/75; PULSE 74; RESP 16; TEMP 36.4; O2SAT 96
--- NOTE | 2023-03-10 14:43 | PDOC.DSDIS_ITS ---
Date of service: 03/10/23 Time of Service: 14:44 Discharge Plan Disposition Patient Disposition: Home Condition: Good Discharge Details Reason For Visit: Chronic Wound - Left Toe Attending Provider: Shay Smith Primary Care Provider: Payam Mejia Home Meds and New Rx's Prescriptions: New acetaminophen 500 mg tablet 1,000 mg PO Q8H PRN (Reason: pain) Qty: 90 3RF hydrocodone-acetaminophen 5-325 mg tablet 1 tab PO Q6H PRN (Reason: pain) Qty: 5 0RF ibuprofen 600 mg tablet 600 mg PO TID PRN (Reason: pain) Qty: 90 3RF ciprofloxacin HCl 500 mg tablet 500 mg PO BID Qty: 14 0RF Continued enalapril maleate 20 mg tablet 20 mg PO HS metformin 500 mg Tablet 1,000 mg PO BID spironolactone 25 mg Tablet 25 mg PO BID Jardiance 10 mg Tablet 25 mg PO DAILY magnesium 250 mg Tablet 250 mg PO DAILY fenofibrate nanocrystallized 48 mg Tablet 48 mg PO DAILY gabapentin 300 mg Tablet 300 mg PO QHS allopurinol 300 mg Tablet 300 mg PO DAILY Discontinued ibuprofen 600 mg tablet 600 mg PO Q6H PRN (Reason: pain and inflammation) Qty: 60 0RF acetaminophen 500 mg Capsule 1,000 mg PO Q6H PRN Discharge Instructions Additional Instructions: Foot Discharge Instructions Activity: You are WEIGHT BEARING TOLERATED with the post-op shoe. You should avoid trying to walk or do too much without the shoe on but you may remove it if not ambulating/mobilizing. You should keep the leg elevated as much as possible. You may wiggle your other toes and move your hip and knee. Dressings: You should keep your dressing clean and dry. Do NOT get wet or dirty. Around 72 hours you may remove the dressings. At this point you may also get the wound wet. Do NOT submerge, but you may wash the wound with soapy water, clean water and then make sure to dry before putting on a new dressing. The new dressing should consist of some gauze between the 4th and 5th toes and then a gauze/NANCY wrap of the toes and foot. Medications: - You should take Tylenol and Ibuprofen around the clock for baseline pain. - You have been prescribed a stronger narcotic for breakthrough pain. - You should take Cipro 500mg twice a day for infection prevention. Follow-up: 10-14 days Referrals: Shay Smith MD [ [facility] STAFF PHYSICIAN] - Equipment/Supplies: Partial Weight Bearing Crutches Activity:: Elevate Remove Dressings/Wound Care:: 72 hours Shower/Bathe:: 72 hours Diet:: Carb Counting Discharge Orders Discharge Orders: Discharge Order (Routine); Ordered 03/10/23 Ordered By: Shay Smith DS: Diagnosis Discharge Diagnosis (1) Ulcer of right foot with fat layer exposed: Status: Acute
--- NOTE | 2023-03-10 14:50 | W.PM.OP ---
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 I previously had seen him for the left fourth toe while he was admitted with a septic type picture. He underwent a disarticulation of the fourth MTP joint and did well from this, able to return to work without issues of the wound. He had a similar type picture on the right side although not septic. Amputation of the fourth toe was performed with some remnant toe left by the community health nurse staff. He was unhappy with the appearance of the toe and had a nonhealing wound about the lateral aspect of the fourth toe. He requested my involvement to move forward with removal of the wound and the remnant of the toe, similar to the left side. I reviewed this procedure with him. I discussed risk to include continued infection, wound healing difficulties, need for repeat procedures, toe deformity, pain. Despite these risk, he elected to proceed. Findings: There is a wound about 3 to 4 mm in diameter over the lateral aspect at the base of the fourth toe which tracked all the way down to bone. There is no gross purulence. There is no surrounding erythema. There is no obvious appearance of the bone being involved. A fourth MTP disarticulation was performed excising all aspects of the previous wound Procedure Description: Ze was greeted in the preoperative holding area. His identity was confirmed the correct site was identified and marked. The consent was reviewed the patient and signed. The history physical was updated. He was taken back to the operating room placed in the supine position with all bony promises well-padded. Prophylactic antibiotics in the form of cefazolin were administered. A general anesthetic was given. A timeout was performed for safe surgery. The right foot was prepped ChloraPrep and draped in a standard fashion. The proposed skin incision was then drawn on the toe itself incising just proximal to the wound laterally and leaving some additional plantar and dorsal skin as possible for closure. This was taken down sharply to the bone and the proximal phalanx of the fourth toe was dissected away from overlying skin and soft tissues. This was taken all the way back to the capsule the fourth MTP joint where these ligaments were incised and the fourth toe proximal phalanx was removed. The wound bed was inspected to make sure that all bony promises and all bony remnants were removed in total. There is no significant bleeding from this area. There is no gross purulence. There is no mall appearance of the bone of the proximal phalanx or the metatarsal head. This wound was irrigated. The soft tissues around were debulked to allow closure. A plantar flap tissue was brought up to meet the dorsal skin. There was limited skin and excess laterally given the proximity of that wound. However, there is no significant tension on the skin with closing. A small amount of the plantar medial flap was excised for cosmesis. 2 interrupted #3-0 Vicryl sutures were placed deep to hold the flap in position. The skin of the flap was then closed with 4-0 nylon. The wound was injected in the form of a digital block using 0.25% bupivacaine. The wound was dressed with Xeroform, 4 x 4 gauze followed by Webril and Dharmesh wrap. He was placed in a postop shoe. At the end the case all counts are correct. No pathology was sent.
--- NOTE | 2023-03-10 14:59 | W.ANESPOSTOP ---
Postoperative Evaluation Date, Time and Location Date Performed: 03/10/23 Time Performed: 14:41 Patient Location: Day Surgery Unit Vital Signs Most Recent Imported Vital Signs: Most Recent Vital Signs Temp Pulse Resp BP Pulse Ox 36.4 C L 74 16 116/75 96 03/10/23 14:39 03/10/23 14:39 03/10/23 14:39 03/10/23 14:39 03/10/23 14:39 Pain Score Most Recent Pain Score: Most Recent Pain Score Pain Level 0 03/10/23 14:39 Assessment Mental Status: Awake (Alert & Oriented to Patient Baseline) Airway and Respiratory Function: Patent airway with normal (patient baseline) respiratory exam Cardiovascular Function: Hemodynamically Stable Hydration Status: Adequately Hydrated Nausea & Vomiting: No Nausea or Vomiting Pain: Pt. Denies Any Pain Peripheral Nerve Block: Other (Surgeons digital block in place. )
[2023-03-10 15:12] VITALS: BP 120/67; PULSE 64; RESP 16; TEMP 36.6; O2SAT 97
== END 2023-03-10 15:21 | disposition home or self-care (01) ==
PROVIDERS: PCP Internal Medicine; Visit Provider Student in an Organized Health Care Education/Training Program
PROC: (CPT 28820; principal; 2023-03-10 13:30)
DX: E11.621 Type 2 diabetes mellitus with foot ulcer (principal); L97.512 Non-pressure chronic ulcer of other part of right foot with fat layer exposed
CPT/HCPCS: 28820; J0131; J0690; J2001; J2250; J2704

== ENCOUNTER → 2023-11-14 03:51 | Outpatient (CLI) | payer BC, SELFPAY ==
--- NOTE | 2023-11-14 | DI.MRI_ITS ---
Exam(s) MR LOWER EXTREMITY LT WO EXAM: MR LOWER EXTREMITY LT WO CLINICAL HISTORY: CHRONIC LT PLANTAR FOOT ULCER, ? BONE INFECTION TECHNIQUE: Multiplanar multisequence MRI was performed. COMPARISON: MR MR LOWER EXTREMITY LT WO/W from 08/07/2021 CR XR FOOT LT COMPLETE from 11/26/2022 CR XR TOE LT FOURTH from 12/02/2022 MR MR LOWER EXTREMITY LT W from 12/03/2022 CR XR FOOT RT COMPLETE from 01/17/2023 CR XR FOOT RT COMPLETE from 02/01/2023 FINDINGS: This is an incomplete study. We were only able to performed 2 sagittal sequences before the patient had to be withdrawn from the magnet because of metal fragment in the lateral aspect hip of his right wrist undergoing significant pooling in bulging of the skin,, this not having occurred on previous MR Is with the same magnet field strength. Once he was removed from the MRI unit this right wrist findi ng resolved. Also no contrast infused sequences able to be performed. What I can say from the limited images obtained (T1 and STIR sagittal sequences) is the following: SKIN/SUBCUTANEOUS: There is significant artifact seen at the level the 4th toes which is related to t he metallic wire like foreign body seen in the soft tissues at this level on plain films of 3. There appears to have been amputation of the phalanges of the 4th toe. Fifth digit: There is an ulcer/skin tract over the distal aspect of the distal phalanx of the 5th toe. However, t here is no evidence of osteomyelitis in the subjacent distal phalanx of the 5th toe nor in the proxim al phalanx. Flexor and extensor tendons are intact. There is no abnormal intraosseous signal eviden t in the 5th metatarsal. Fourth digit: There has been amputation of the phalanges of the 4th toe.. Artifact is noted in the plantar subcuta neous tissues at this level corresponding to the wire described above and seen on prior plain films. There is no evidence of osteomyelitis of the 4th metatarsal. Third-middle digit: There is abnormal marrow signal in the mid and distal 3rd metatarsal. Mild increased signal on STIR images but there is some confluent hypo intense signal in the medullary cavity which is somewhat susp icious for osteomyelitis although there does not appear to be very bright signal on the STIR images, and the findings appear unchanged from the 12/03/2022 MRI study. There is flattening of the head of t he 3rd metatarsal. Degenerative subarticular cyst is seen in the 3rd metatarsal head. Small amount of increased joint fluid at the metatarsophalangeal joint. No evidence of osteomyelitis in the proxi mal phalanx nor in the middle and distal phalanx. Second digit: There is dislocation of metatarsophalangeal joint again noted, as evident on the MRI scan of 12/04/19 23.. The proximal phalanx is dislocated dorsal relative to the 2nd metatarsal head. There are no frac tures. No abnormal marrow signal in the 2nd metatarsal nor in the phalanges of the 2nd toe. No signif icant joint effusion at the metatarsophalangeal joint. Previously present abscess in the subcutaneous soft tissues subjacent to the head of the 2nd metatarsal has decreased. Great toe: There has been amputation of the phalanges of the great toe. There is a well-defined area of low sign al abnormality in the diaphysis of the great toe measuring approximately 4 cm long by 0.9 cm wide. Th is appears unchanged from prior MRI scan of 12/03/2022. There is no prominent surrounding intraosseou s bone edema. Therefore, unlikely to represent osteomyelitis. Previously present abscess in the subcu taneous tissues subjacent to the head of the great toe metatarsal has also decreased in size. IMPRESSION: 1. Very limited study with only 1st 2 sequences able to be performed prior to this patient having had to be removed from the unit because of bulging metal structure in his right wrist (which reverted to baseline following removal from the MRI room) 2. There has been interval amputation of the phalanges of the 4th toe since the prior MRI scan of . The artifact from wire like foreign body at this level is still evident and I suspect that t he foreign body is still present. This can be confirmed with repeat plain films of the toes. 3. Mild suspicion for osteomyelitis of the 3rd metatarsal due to the presence of confluent hypointens e signal within the marrow cavity. However, the amount of abnormal signal in this bone on the STIR se quence is somewhat less than expected for osteomyelitis. In addition, contrast infused sequences were not able to be performed. 4. Again noted is dislocation of the metatarsophalangeal joint of the 2nd toe and amputation of the p halanges of the great toe. There is no evidence of osteomyelitis in the remaining phalanges of the 2n d and 3rd and 5th toes. There is a subtle fracture noted on the dorsal base of the proximal phalanx o f the 3rd toe. DATA REPOSITORY:
[2023-11-14 10:30] LABS: CREATININE 1.2 mg/dL (0.70-1.30); Estimated GFR 73.67 (mL/min/1.73m2)
== END ==
PROVIDERS: PCP Internal Medicine; Visit Provider Nurse Practitioner
DX: L97.422 Non-pressure chronic ulcer of left heel and midfoot with fat layer exposed (principal); E08.69 Diabetes mellitus due to underlying condition with other specified complication
CPT/HCPCS: 73718; 82565; 83036

== ENCOUNTER 2024-01-31 08:01 | Emergency (ER) | payer BC, SELFPAY ==
[2024-01-31 08:05] VITALS: BP 122/69; PULSE 107; RESP 16; TEMP 36.7; O2SAT 96
[2024-01-31 08:27] LABS: Lactate 1.9 mmol/L (0.6-1.4)
[2024-01-31 08:28] LABS: Abs Immature Grans 0.15 10^3/uL (0.0-0.06); Absolute Eosinophil Count 0.02 10^3/uL (0.0-0.7); Basophils % 0.4 %; Eosinophils % 0.1 %; HCT 44.4 % (40.0-50.0); HGB 15.1 g/dL (13.5-17.5); Immature Grans % 0.6 %; Lymphocytes % 2.6 %; MCH 29.3 pg (27.0-33.0); MCV 86 fL (80-95); MPV 8.8 fL (8.0-11.0); Monocytes % 7.3 %; Platelet Count 220 10^3/uL (130-400); RBC 5.15 10^6/uL (4.36-5.78); RDW 12.8 % (11.8-14.1); WBC 24.69 10^3/uL (4.4-10.8)
[2024-01-31 08:37] LABS: ESR 31 mm/hr (0-15)
--- NOTE | 2024-01-31 08:37 | W.ED.GENAD ---
Discharge Plan Disposition Patient Disposition: Transfer-Acute Inpatient Care Specific Acute Inpt Facility: [facility] Condition: Stable Discharge Details Clinical Impression: Cellulitis of fifth toe of left foot Primary Care Provider: Payam Mejia ED Provider: Laura Jurado Home Meds and New Rx's Prescriptions: No Action enalapril maleate 20 mg tablet 20 mg PO HS metformin 500 mg Tablet 1,000 mg PO BID spironolactone 25 mg Tablet 25 mg PO DAILY Jardiance 10 mg Tablet 25 mg PO DAILY magnesium 250 mg Tablet 250 mg PO DAILY fenofibrate nanocrystallized 48 mg Tablet 48 mg PO DAILY acetaminophen 500 mg tablet 1,000 mg PO Q8H PRN (Reason: pain) Qty: 90 3RF ibuprofen 600 mg tablet 600 mg PO TID PRN (Reason: pain) Qty: 90 3RF gabapentin 300 mg Tablet 300 mg PO QHS allopurinol 300 mg Tablet 300 mg PO DAILY Acidophilus Capsule 100 mmu cells PO BID HPI General Mode of arrival: ambulatory. Date/Time Provider Initiated Documentation: 01/31/24 08:02. Limitations to Documentation: no limitations. Information obtained by: patient, family, RN notes reviewed and old records reviewed. HPI Narrative: 48-year-old male with a history of diabetes and diabetic foot ulcers presents to the ED with new lesions onset of Tuesday after being seen by wound care on Tuesday for an existing plantar surface ulcer. He was seen for a 5th toe nail clipping and had a band aid placed to the area which caused some skin breakdown and now has discoloration to the left lateral side of foot and bloody drainage. He is followed at [facility] with [place] care for this and has had previous amputations. He reports fever and chills last night with myalgias. He did take Dicloxacillin 3 tablets last night. Related Data Home Medications ?Medication ?Instructions ?Recorded ?Confirmed empagliflozin 10 mg tablet 25 mg PO DAILY 05/13/21 01/31/24 (Jardiance) metformin 500 mg tablet 1,000 mg PO BID 05/13/21 01/31/24 spironolactone 25 mg tablet 25 mg PO DAILY 05/13/21 01/31/24 fenofibrate nanocrystallized 48 mg 48 mg PO DAILY 05/15/21 01/31/24 tablet magnesium 250 mg tablet 250 mg PO DAILY 05/15/21 01/31/24 allopurinol 300 mg tablet 300 mg PO DAILY 07/11/21 01/31/24 gabapentin 300 mg tablet 300 mg PO QHS 07/11/21 01/31/24 enalapril maleate 20 mg tablet 20 mg PO HS 02/09/22 01/31/24 acetaminophen 500 mg tablet 1,000 mg (2 x 500 mg) PO Q8H PRN 03/10/23 01/31/24 pain #90 tabs ibuprofen 600 mg tablet 600 mg PO TID PRN pain #90 tabs 03/10/23 01/31/24 Lactobacillus acidophilus 100 mmu cells PO BID 01/31/24 01/31/24 (Acidophilus capsule) Previous Rx's ?Medication ?Instructions ?Recorded acetaminophen 500 mg tablet 1,000 mg (2 x 500 mg) PO Q8H PRN 03/10/23 pain #90 tabs ibuprofen 600 mg tablet 600 mg PO TID PRN pain #90 tabs 03/10/23 Allergies Allergy/AdvReac Type Severity Reaction Status Date / Time No Known Allergies Allergy Verified 01/31/24 08:08 General Stated Complaint: Cellulitis FERDRICK: 3 Review of Systems All systems reviewed & are unremarkable except as noted in HPI and below Integumentary/Breasts Skin/Breast: Reports as per HPI, Reports skin ulcer, Reports sores and Reports wounds Exam Narrative Exam Narrative: Constitutional: Alert and oriented x3. Appears stated age. Normal body habitus. Head: Normocephalic, no trauma. Eyes: Pupils PERRL, Red reflex noted, EOM's intact. Eyelids symmetrical without lesions, discharge, or swelling. ENT: Bilateral TM's WNL, External ear normal to inspection, no mastoid TTP, swelling, or erythema, Nasal turbinates WNL, no nasal discharge. Normal dentition, Posterior pharynx WNL, no exudate. Chest: RRR, Normal S1, S2, distal pulses intact. Resp: Lungs clear to auscultation bilaterally, no wheezes, rales, or rhonchi. Abdomen: Soft, non-distended, Normoactive bowel sounds all 4 quads. Musculoskeletal: Normal gait, Moves all 4 extremities without difficulty. Skin: See extremity diagram below capillary refill less than 2 sec. Neurologic: Cranial nerves II-XII intact. Alert and oriented x 3. Motor: No deficits noted. Sensory: Intact bilaterally all 4 extremities. Hematologic/Lymphatic: No ecchymosis, no lymphadenopathy. Extrem Left lower extremity: foot Details: abnormal to inspection, warmth and ecchymosis Ankle/foot/toe images: 1. Ulcer 2. Abrasion 3. Ecchymosis, discoloration 4. Erythema 5. Previously amputated Course Vital Signs Vital signs: Vital Signs Temperature 36.7 C 01/31/24 08:05 Pulse 107 H 01/31/24 08:05 Respiratory Rate 16 01/31/24 08:05 Blood Pressure 122/69 01/31/24 08:05 Pulse Oximetry 96 01/31/24 08:05 Temperature 36.7 C 01/31/24 08:05 Temperature Source Temporal Artery Scan 01/31/24 08:05 Pulse 107 H 01/31/24 08:05 Respiratory Rate 16 01/31/24 08:05 Blood Pressure 122/69 01/31/24 08:05 Pulse Oximetry 96 01/31/24 08:05 Lab/Test Results Lab/Test Results: 01/31/24 08:18 Blood Blood Culture - Pending 01/31/24 08:16 Blood Blood Culture - Pending Laboratory Tests Range/Units 01/31/24 08:18 VBG Lactate (0.6-1.4) mmol/L 1.9 H Medical Decision Making 48-year-old male with a history of diabetes and diabetic foot ulcers presents to the ED with new lesions onset of Tuesday after being seen by wound care on Tuesday for an existing plantar surface ulcer. He was seen for a 5th toe nail clipping and had a band aid placed to the area which caused some skin breakdown and now has discoloration to the left lateral side of foot and bloody drainage. He is followed at [facility] with wound care for this and has had previous amputations. He reports fever and chills last night with myalgias. He did take Dicloxacillin 3 tablets last night. Workup ordered including CBC CMP blood cultures x 2 lactate ESR and CRP. They are unable to perform the MRI today due to patient's fall in his wrist which has been On his last MRI in November. CT lower extremities without ordered. Will expect to consult with [facility]. Vancomycin 1500 mg IV ordered. White blood cell count is 24.69, absolute neutrophils 41.97. Lactate 1.9, sodium 134 BUN 21 creatinine 1.3 glucose 200. 1042: Spoke with Dr. Maria Radiologist regarding CT result, no obvious Osteomyletitis, See official report. 1046:[facility] transfer center called, 1102: Spoke with Dr. Ze Pascal with hospitalist who accepted patient for transfer when they have a bed available, no further recommendations given at this time. At this time bed placement pending. Patient has remained hemodynamically stable. Heart rate is 75. Care assumed from Dr./Pending bed assignment at [facility]. At this time patient is excepted at [facility] alert and oriented updated on plan of Family verbalized understanding and no complaints at time. This text was generated using [employer] system, please disregard any oddities of phrase or misspellings. Medical Records Medical records reviewed: Yes I reviewed the patient's medical records. Medical records narrative: Previous MRI's Imaging Data Radiologic Study: Imaging: CT Scan Radiologist's impression: CONTRAST MATERIAL: Intravenous: Omnipaque 350 Contrast volume:100 contrast route:IV - COMPARISON: CT CT LOWER EXTREMITY LT WO from 07/11/2021 MR MR LOWER EXTREMITY LT WO from 11/14/2023 FINDINGS: OSSEOUS: There has been amputation of the phalanges great toe. No obvious evidence of osteomyelitis in the great toe metatarsal. There is an area of lucency in the diaphysis of the great toe metatarsal which corresponds to finding recently described on MRI scan of 11/14/2023 and does not have the appearance of typical osteomyelitis. Second digit: There is dislocation of the metatarsophalangeal joint again evident. The proximal phalanx is dislocated dorsal to head of the 2nd metatarsal. There is no bone destruction in the 2nd metatarsal nor within the phalanges of the 2nd toe. Third-middle digit: There is flattening of the head of the 3rd metatarsal and degenerative subarticular cysts at this level. No obvious evidence of osteomyelitis-bone destruction in the 3rd metatarsal nor in the phalanges of the 3rd toe. Fourth digit: There has been amputation of the phalanges of the 4th toe. No evidence of bone destruction in the 4th meta tarsal. Fifth digit: Is no evidence of osteomyelitis of the 5th metatarsal nor the phalanges of the 5th toe. ARTICULATIONS: Hindfoot articulations appear unremarkable as do the midfoot articulations. Tarsometatarsal joints appear unremarkable. SOFT TISSUES: There is a small radiopaque foreign body in the subcutaneous soft tissue located 1.5 cm distal to the head of the 4th metatarsal (the 4th toe phalanges have been amputated). No obvious ulcer crater. IMPRESSION: Findings as above. No CT evidence of osteomyelitis. No peripherally enhancing abscess evident. Small radiopaque foreign body again noted in the distal foot just distal to the level of the previously amputated 4th toe phalanges. This was discussed on prior MR of 11/14/2023 Lab Data Lab results reviewed: Yes I reviewed the patient's lab results. Labs: 01/31/24 08:52 Blood Blood Culture - Pending 01/31/24 08:18 Blood Blood Culture - Pending Laboratory Tests Range/Units 01/31/24 01/31/24 08:18 09:17 WBC (4.4-10.8) 10^3/uL 24.69 H RBC (4.36-5.78) 10^6/uL 5.15 Hgb (13.5-17.5) g/dL 15.1 Hct (40.0-50.0) % 44.4 MCV (80-95) fL 86 MCH (27.0-33.0) pg 29.3 MCHC (32.0-36.0) % 34.0 RDW (11.8-14.1) % 12.8 Plt Count (130-400) 10^3/uL 220 MPV (8.0-11.0) fL 8.8 Immature Gran % % 0.6 Neutrophils % % 89.0 Lymphocytes % % 2.6 Monocytes % % 7.3 Eosinophils % % 0.1 Basophils % % 0.4 Nucleated RBC % (0.0-0.3) % 0.0 Absolute Neutrophils (1.2-6.7) 10^3/uL 21.97 H Absolute Lymphocytes (1.2-3.4) 10^3/uL 0.64 L Absolute Monocytes (0.1-0.8) 10^3/uL 1.80 H Absolute Eosinophils (0.0-0.7) 10^3/uL 0.02 Absolute Basophils (0.0-0.2) 10^3/uL 0.10 RBC Morphology Normal ESR (0-15) mm/hr 31 H VBG Lactate (0.6-1.4) mmol/L 1.9 H Sodium (136-145) mmol/L 134 L Potassium (3.5-5.1) mmol/L 4.3 Chloride (98-107) mmol/L 99 Carbon Dioxide (21.0-32.0) mmol/L 23.1 Anion Gap (3-11) mmol/L 11.9 H BUN (7-18) mg/dL 21 H Creatinine (0.70-1.30) mg/dL 1.3 Est GFR (CKD-EPI 2020) (mL/min/1.73m2) 66.93 Glucose (74-106) mg/dL 200 H Calcium (8.5-10.1) mg/dL 9.4 Magnesium (1.8-2.4) mg/dL 2.0 Total Bilirubin (0.2-1.0) mg/dL 1.21 H AST (15-37) U/L 38 H ALT (16-63) U/L 53 Alkaline Phosphatase (46-116) U/L 64 C-Reactive Protein (<or=0.5) mg/dL 13.64 H Total Protein (6.4-8.2) g/dL 8.2 Albumin (3.4-5.0) g/dL 3.8 Urine Color (Yellow) Yellow Urine Clarity (Clear) Clear Urine pH (5-8) 6.0 Ur Specific [place] (1.005-1.025) 1.015 Urine Protein (Neg-Trace) mg/dL Negative Urine Ketones (Negative) mg/dL Trace H Urine Blood (Negative) Negative Urine Nitrite (Negative) Negative Urine Bilirubin (Negative) Negative Urine Urobilinogen (Up to 0.2) mg/dL 0.2 Ur Leukocyte Esterase (Negative) Negative Urine RBC (0-2) HPF 0-2 Urine WBC (0-5) HPF 0-2 Ur Epithelial Cells (Negative) HPF Rare Urine Crystals (Negative) HPF Negative Urine Bacteria (Negative) HPF Rare Urine Casts (Negative) LPF Negative Urine Mucus (Negative) Negative Ur Culture Indicated? No Urine Glucose (Negative) mg/dL >=1000 H Quality:SDOH Health Related Social Needs: No Data to Display PFSH All Active Problems (Updated 01/31/24 @ 11:11 by Laura Jurado NP) Cellulitis of fifth toe of left foot (Acute) Cardiomyopathy (Acute) LVEF 61% by echo in 07/2018, up from 23% in 10/2015. (Dr. Melvin) Gout (Chronic) Diabetes mellitus (Chronic) HTN (hypertension) (Chronic) DVT prophylaxis (Acute) GERD (gastroesophageal reflux disease) (Chronic) Atherosclerosis of [place] arteries of left leg with ulceration of other part of foot (Acute) Diabetes mellitus type 2 in obese (Acute) Diabetic toe ulcer (Acute) Ulcer of right foot with fat layer exposed (Acute) Cellulitis (Acute) Medical History Diabetes mellitus with foot ulcer due to multiple causes Diabetic foot infection Obesity (BMI 30-39.9) Diabetic ulcer of foot associated with diabetes mellitus due to underlying condition, limited to breakdown of skin Surgical History 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 Smith s/p I&D of left toe - Dr. Connelly on 12/02/2022 History of bunionectomy of left great toe Hx of circumcision 05/13/21 H/O adenoidectomy Family History Mother Hypertension Social History Smoking/Tobacco Use Status: Former Tobacco Use Quit Date: 06/06/02 Smoking risk assessment performed?: Yes Alcohol Intake: current Alcohol Intake frequency: a few times a month Alcohol type: beer Drug use: Never Substance use type: does not use Housing: house Additional Social history: unable to assess [facility]
[2024-01-31 08:41] LABS: Absolute Lymphocyte Count 0.64 10^3/uL (1.2-3.4); Absolute Neutrophil Count 21.97 10^3/uL (1.2-6.7)
[2024-01-31 08:42] LABS: Diff Comment Agrees w/ Instrument; RBC Morphology Normal
[2024-01-31 08:52] LABS: ALT 53 U/L (16-63); AST 38 U/L (15-37); Albumin 3.8 g/dL (3.4-5.0); Alkaline Phosphatase 64 U/L (46-116); Anion Gap 11.9 mmol/L (3-11); BUN 21 mg/dL (7-18); Bilirubin, Total 1.21 mg/dL (0.2-1.0); CO2 23.1 mmol/L (21.0-32.0); CREATININE 1.3 mg/dL (0.70-1.30); Calcium 9.4 mg/dL (8.5-10.1); Chloride 99 mmol/L (98-107); Estimated GFR 66.93 (mL/min/1.73m2); Glucose 200 mg/dL (74-106); Potassium 4.3 mmol/L (3.5-5.1); Sodium 134 mmol/L (136-145); Total Protein 8.2 g/dL (6.4-8.2)
--- NOTE | 2024-01-31 08:57 | DI.CT_ITS ---
Exam(s) CT LOWER EXTREMITY LT W EXAM: CT LOWER EXTREMITY LT W CLINICAL HISTORY: Left diabetic foot ulcer. TECHNIQUE: Imaging Protocol: Axial computed tomography images with coronal and sagittal reformatted images were created and reviewed. CONTRAST MATERIAL: Intravenous: Omnipaque 350 Contrast volume:100 contrast route:IV - COMPARISON: CT CT LOWER EXTREMITY LT WO from 07/11/2021 MR MR LOWER EXTREMITY LT WO from 11/14/2023 FINDINGS: OSSEOUS: There has been amputation of the phalanges great toe. No obvious evidence of osteomyelitis in the gr eat toe metatarsal. There is an area of lucency in the diaphysis of the great toe metatarsal which c orresponds to finding recently described on MRI scan of 11/14/2023 and does not have the appearance o f typical osteomyelitis. Second digit: There is dislocation of the metatarsophalangeal joint again evident. The proximal phal anx is dislocated dorsal to head of the 2nd metatarsal. There is no bone destruction in the 2nd meta tarsal nor within the phalanges of the 2nd toe. Third-middle digit: There is flattening of the head of the 3rd metatarsal and degenerative subarticul ar cysts at this level. No obvious evidence of osteomyelitis-bone destruction in the 3rd metatarsal nor in the phalanges of the 3rd toe. Fourth digit: There has been amputation of the phalanges of the 4th toe. No evidence of bone destruc tion in the 4th meta tarsal. Fifth digit: Is no evidence of osteomyelitis of the 5th metatarsal nor the phalanges of the 5th toe. ARTICULATIONS: Hindfoot articulations appear unremarkable as do the midfoot articulations. Tarsometa tarsal joints appear unremarkable. SOFT TISSUES: There is a small radiopaque foreign body in the subcutaneous soft tissue located 1.5 cm distal to the head of the 4th metatarsal (the 4th toe phalanges have been amputated). No obvious ul cer crater. IMPRESSION: Findings as above. No CT evidence of osteomyelitis. No peripherally enhancing abscess evident. Sma ll radiopaque foreign body again noted in the distal foot just distal to the level of the previously amputated 4th toe phalanges. This was discussed on prior MR of 11/14/2023 RADIATION DOSE DELIVERED: 114.22mGy.cm Total DLP DATA REPOSITORY: All CT scans at this facility are submitted to the National Radiology Data Registry (NRDR) Dose Index Registry (DIR) with the [employer] (ACR). RADIATION OPTIMIZATION: All CT scans at this facility use at least one of these dose optimization te chniques: automated exposure control; mA and/or kV adjustment per patient size (includes targeted exa ms where dose is matched to clinical indication); or iterative reconstruction.
[2024-01-31 09:03] LABS: C-Reactive Protein 13.64 mg/dL (<or=0.5)
[2024-01-31] MEDS: VANCOMYCIN/WATER (PEG) 1.5 GM/300 ML BAG IV (09:09)
[2024-01-31] MEDS: Omnipaque 350 MG/ML 500 ML BTL-Imaging package IJ (09:23)
[2024-01-31] MEDS: Normal Saline - Diluent 50 ML VIAL IJ (09:24)
[2024-01-31 09:27] LABS: Bilirubin Negative (Negative); Blood Negative (Negative); Clarity Clear (Clear); Glucose >=1000 mg/dL (Negative); Ketones Trace mg/dL (Negative); Leukocyte Esterase Negative (Negative); Nitrite Negative (Negative); Specific Gravity 1.015 (1.005-1.025); Urobilinogen 0.2 mg/dL (Up to 0.2)
[2024-01-31 09:39] LABS: Bacteria Rare HPF (Negative); C & S Indicated? No; Casts Negative LPF (Negative); Crystals Negative HPF (Negative); Epithelial Cells Rare HPF (Negative); Mucus Negative (Negative); RBC 0-2 HPF (0-2); WBC 0-2 HPF (0-5)
[2024-01-31] MEDS: Normal Saline 500 ML IV (10:43)
[2024-01-31 13:27] VITALS: BP 128/79; PULSE 95; RESP 18; TEMP 37.2; O2SAT 96
[2024-01-31 14:35] VITALS: BP 116/76; PULSE 107; RESP 18; TEMP 37.1; O2SAT 97
[2024-01-31 16:19] VITALS: BP 149/75; PULSE 109; RESP 18; TEMP 37.4; O2SAT 98
[2024-01-31] MEDS: ACETAMINOPHEN 1,000 MG/100 ML BTL 400 MG IVPB (17:19)
[2024-01-31 18:27] VITALS: BP 113/69; PULSE 107; RESP 15; O2SAT 95
== END 2024-01-31 18:50 | disposition short-term general hospital (02) ==
PROVIDERS: Registered Nurse Emergency; Emergency Provider Physician Assistant; PCP Internal Medicine
DX: L03.032 Cellulitis of left toe (principal); E11.9 Type 2 diabetes mellitus without complications; I10 Essential (primary) hypertension; Z87.891 Personal history of nicotine dependence; Z89.412 Acquired absence of left great toe
CPT/HCPCS: 36415; 80053; 85652; 87040; 96365; 96366; 96367; 99285; 73701; 81003; 81015; 83605; 83735; 85025; 86140; J0131; J3372

== ENCOUNTER 2024-09-28 10:39 | Outpatient (CLI) | payer BC, SELFPAY ==
--- NOTE | 2024-09-28 09:45 | DI.RAD_ITS ---
Exam(s) XR WRIST RT COMPLETE EXAM: XR WRIST RT COMPLETE CLINICAL HISTORY: FB IN WRIST-LOCATION M79.5 FB in soft Tissue. TECHNIQUE: 2D digital imaging was performed. COMPARISON: No exams were available for comparison FINDINGS: 3 views No evidence fracture or dislocation nor significant ulnar variance. No osseous lesions nor erosions. There is a 7 x 3 mm metallic density foreign body in the soft tissues on the lateral aspect of the wr ist. This is adjacent to the distal radius on its lateral aspect, approximately 2 cm proximal to the distal tip of the radial styloid. There is no evidence of osteomyelitis in the adjacent bone of the radius IMPRESSION: There is a 7 x 3 mm metallic foreign body on the radial-lateral aspect of the wrist as described abov e adjacent to the radius. There is no evidence of fracture or osteomyelitis DATA REPOSITORY: RADIATION DOSE DELIVERED:
== END 2024-09-28 10:59 ==
LOC: DI 10:40
PROVIDERS: PCP Internal Medicine; Visit Provider Student in an Organized Health Care Education/Training Program
DX: M79.5 Residual foreign body in soft tissue (principal)
CPT/HCPCS: 73110

== ENCOUNTER 2024-10-18 12:32 | Day surgery (SDC) | payer BC, SELFPAY ==
--- NOTE | 2024-10-18 07:18 | W.PM.DSUDISC ---
Date of service: 10/18/24 Discharge Plan Disposition Patient Disposition: Home Discharge Details Attending Provider: Yonas Zhao Primary Care Provider: Payam Mejia Home Meds and New Rx's Prescriptions: Continued enalapril maleate 20 mg tablet 20 mg PO HS metformin 500 mg Tablet 1,000 mg PO BID spironolactone 25 mg Tablet 25 mg PO DAILY Jardiance 10 mg Tablet 25 mg PO DAILY magnesium 250 mg Tablet 250 mg PO DAILY fenofibrate nanocrystallized 48 mg Tablet 48 mg PO DAILY acetaminophen 500 mg tablet 1,000 mg PO Q8H PRN (Reason: pain) Qty: 90 3RF ibuprofen 600 mg tablet 600 mg PO TID PRN (Reason: pain) Qty: 90 3RF gabapentin 300 mg Tablet 300 mg PO QHS allopurinol 300 mg Tablet 300 mg PO DAILY Acidophilus Capsule 100 mmu cells PO BID Discharge Instructions Additional Instructions: Surgery: Right wrist removal of foreign body 10/18/2024 Activity: Protect wrist for a few weeks. Gently increase wrist and hand motion to prevent stiffness. Recommend elevation to minimize swelling and discomfort. Prescriptions: None Resume home medicines, use [id number] Tylenol (acetaminophen) as needed for mild pain and ibuprofen (Motrin) or naproxen (Aleve) as needed for moderate to severe pain and swelling. Dressings: Leave dressing in place for 1-2 days. May then remove and leave open to air or cover incision with Band-Aid. May get wet after 3 days. Follow-up: 10-[address] Zhao Please call the office during business hours with any questions or concerns. Stand Alone Forms: Chau Long (CHIOU) Referrals: Yonas Zhao MD [ [facility] STAFF PHYSICIAN] - 10/30/24 9:45 am Discharge Orders Discharge Orders: Discharge Order (Routine); Ordered 10/18/24 Ordered By: Long Lundberg DS: Diagnosis Discharge Diagnosis (1) Foreign body of right wrist: Status: Acute
--- NOTE | 2024-10-18 07:21 | W.PM.OP ---
Operative Note Operative Note PRE-OP DIAGNOSIS: Right wrist metallic foreign body PROCEDURE: Right wrist removal of foreign body, CPT# 73071 SURGEON: Yonas Zhao PSYCHOLOGICAL STRESS EVALUATOR: None None ANESTHESIA TYPE: Local By Surgeon Refer to Anesthesia Record ESTIMATED BLOOD LOSS: 1 TOURNIQUET TIME: 0 COMPLICATIONS: None Patient was transported to: same day Patient's condition: stable Indications: Please see complete medical record for details. Procedure Description: In the operating room, the patient was positioned supine on the stretcher. All bony prominences were padded. Preoperative antibiotics were omitted. The correct patient, procedure, and side of the procedure were all verified prior to beginning. Local anesthesia was induced about the radial wrist site with 10cc of 1% lidocaine containing epinephrine buffered with 1 cc of sodium bicarbonate. The right wrist and hand were prepped and draped in the usual sterile fashion. Proper analgesia was confirmed. A small longitudinal incision was made directly overlying the palpable foreign body corresponding to the x-ray location. A granuloma?type appearing area was found in the subcutaneous tissue with adhesions to the subcutaneous and deeper layers. It was carefully grasped and removed in entirety through a combination of tenotomy snipping and mosquito snaps spreading tissues on all sides. After was removed it was opened and contained the known metallic foreign body in entirety. The wound was inspected and a slight amount of granuloma firm tissue was removed more deeply and proximally. The wound was irrigated. Hemostasis was appropriate. The small incision was closed with a single subcutaneous stitch 4-0 Monocryl. Skin glue applied over the incision followed by 4 x 4 gauze and gently compressed with an Dharmesh bandage. The patient tolerated local anesthesia without complication and was transferred out of the operating room in a stable condition. Date of Procedure: 10/18/24
[2024-10-18 13:01] VITALS: BP 124/83; PULSE 83; RESP 16; TEMP 36.2; O2SAT 95
[2024-10-18] MEDS: Lactated Ringers 1,000 ML 30 ML IV (13:14)
[2024-10-18] MEDS: ceFAZolin 3,000 MG in Normal Saline 100 ML 200 MG IV (15:04)
[2024-10-18] MEDS: Sodium Bicarbonate 50 MEQ/50 ML VIAL (15:07)
[2024-10-18] MEDS: Lidocaine 1% Multi-Dose W/EPI 1/100,000 50 ML VIAL (15:07)
[2024-10-18 15:35] VITALS: BP 133/75; PULSE 83; RESP 16; TEMP 36.7; O2SAT 96
== END 2024-10-18 16:02 | disposition home or self-care (01) ==
PROVIDERS: PCP Internal Medicine; Visit Provider Student in an Organized Health Care Education/Training Program
PROC: (CPT 10120; principal; 2024-10-18 14:30)
DX: S60.851A Superficial foreign body of right wrist, initial encounter (principal)
CPT/HCPCS: 10120; J0690; J2004

== ENCOUNTER 2024-11-01 02:38 | Outpatient (CLI) | payer BC, SELFPAY ==
--- NOTE | 2024-11-01 07:45 | DI.MRI_ITS ---
Exam(s) MR UPPER JOINT LT WO EXAM: MR UPPER JOINT LT WO CLINICAL HISTORY: L SHOULDER PAIN,traumatic tear lt rotator cuff,s46.012a TECHNIQUE: Multiplanar multisequence MRI of the shoulder was performed. COMPARISON: There are no plain films of the shoulder available at the time of this MRI interpretatio n. FINDINGS: MARROW:There is no evidence of fracture, Hill-Sachs deformity, nor ominous osseous lesions. GLENOHUMERAL JOINT: Minimal amount of increased joint fluid. Minimal degenerative changes. No large chondral defects. There are no degenerative subarticular cysts. No loose intra-articular bodies ev ident. ROTATOR CUFF MECHANISM: AC JOINT/ACROMIUM: There is advanced degenerative change in the acromioclavicular joint. There also prominent downgoing osteophytes causing impingement at this level.. There is no evidence of os acromiale. Supraspinatus: There is a E full-thickness tear of the supraspinatus tendon with some retraction of t he musculotendinous junction to the mid humeral head level. There is continuity of fluid through thi s gap into the subacromial space. No prominent muscle atrophy. Infraspinatus: Mild insertional tendinitis. No high-grade tear. No atrophy. Teres Minor: Intact. No evidence of tear nor muscle atrophy. Subscapularis/anterior cuff: Mild insertional tendinitis. No tear. No abnormal intraosseous signal in the lesser tuberosity nor in the coracoid process. BICEPS TENDON: Exhibits normal position within the intertubercular groove. No evidence of tear. There is, however, fluid in the tendon sheath in the gating tenosynovitis. LABRUM: Superior labrum posterior to the biceps insertion exhibit signal abnormality on 1 coronal alfonso ge. The posterior labrum appears intact. Anterior labrum appears intact. No obvious tear of the in ferior labrum and inferior glenohumeral ligament appears intact QUADRILATERAL SPACE: No evidence of mass in the region of the axillary nerve and dorsal circumflex hu meral vessels. Visualized triceps muscle at this level appears unremarkable. IMPRESSION: 1. There is a full-thickness tear of the supraspinatus rotator cuff tendon with some retraction muscu lotendinous junction and continuity of fluid through this space from the glenohumeral joint into the subacromial region. There is significant impingement at the level of the acromioclavicular joint whe re there are advanced degenerative changes including downgoing osteophytes on both sides the joint. 2. Mild tendinitis signal noted within the infraspinatus and subscapularis but no high-grade tears of these structures. 3. No obvious labral tears nor evidence of paralabral cyst. 4. No obvious tear of the long head biceps tendon nor displacement. However, there is some fluid in its tendon sheath evident. DATA REPOSITORY:
== END 2024-11-01 02:58 ==
LOC: DI 02:38
PROVIDERS: PCP Internal Medicine; Visit Provider Student in an Organized Health Care Education/Training Program
DX: S46.012D Strain of muscle(s) and tendon(s) of the rotator cuff of left shoulder, subsequent encounter (principal); X58.XXXD Exposure to other specified factors, subsequent encounter
CPT/HCPCS: 73221

== ENCOUNTER 2025-01-23 15:16 | Outpatient (CLI) | payer BC, SELFPAY ==
--- NOTE | 2025-01-23 14:15 | DI.RAD_ITS ---
Exam(s) XR KNEE RT 3V AP,LAT,LIZ EXAM: XR KNEE RT 3V AP,LAT,LIZ CLINICAL HISTORY: RIGHT KNEE PAIN. TECHNIQUE: 2D digital imaging was performed. Three views. COMPARISON: No exams were available for comparison FINDINGS: BONES: No acute fracture is present. No bony destructive lesion is seen. Small enthesophytes at the patella. Larger enthesophyte at the tibial tubercle. JOINTS: The knee is normally aligned. No joint effusion is seen. Joint spaces are maintained. There is mild spurring at the articular aspect of the patella. SOFT TISSUE: Normal. IMPRESSION: Mild degenerative changes. DATA REPOSITORY: RADIATION DOSE DELIVERED:
== END 2025-01-23 15:17 | disposition home or self-care (01) ==
LOC: DIORS 15:17
PROVIDERS: PCP Internal Medicine; Visit Provider Student in an Organized Health Care Education/Training Program
DX: M25.561 Pain in right knee (principal); M17.11 Unilateral primary osteoarthritis, right knee
CPT/HCPCS: 73562

== ENCOUNTER 2025-05-09 09:49 | Day surgery (SDC) | payer BC, SELFPAY ==
[2025-05-09] VITALS (22 sets, daily range): BP systolic 116–148; BP diastolic 63–87; PULSE 74–92; RESP 14–18; TEMP 36.3–36.7; O2SAT 90–99; BMI 36.0
--- NOTE | 2025-05-09 07:13 | W.PM.DSUDISC ---
Date of service: 05/09/25 Discharge Plan Disposition Patient Disposition: Home Condition: Stable Discharge Details Attending Provider: Yonas Zhao Primary Care Provider: Payam Mejia Home Meds and New Rx's Prescriptions: New naproxen 250 mg tablet 250 - 500 mg PO BID PRN (Reason: Moderate pain) Qty: 40 0RF oxycodone 5 mg tablet 5 - 10 mg PO Q4H PRN (Reason: Moderate to severe pain) Qty: 18 0RF Continued enalapril maleate 20 mg tablet 20 mg PO HS celecoxib 200 mg capsule 200 mg PO DAILY PRN (Reason: shoulder pain) Qty: 90 0RF metformin 500 mg Tablet 1,000 mg PO BID spironolactone 25 mg Tablet 25 mg PO DAILY Jardiance 10 mg Tablet 25 mg PO DAILY fenofibrate nanocrystallized 48 mg Tablet 48 mg PO DAILY gabapentin 300 mg Tablet 300 mg PO QHS allopurinol 300 mg Tablet 300 mg PO DAILY Discharge Instructions Additional Instructions: Surgery: Left shoulder arthroscopy with rotator cuff repair (supraspinatus), biceps transposition tenodesis, extensive debridement, and subacromial decompression 05/09/2025 Activity: For 6 weeks, you should keep your arm at your side in a neutral position at all times except for physical therapy. Do not try to lift or raise your arm using your own muscles. You should use the sling whenever you are out of the house. At home it is best to remove the sling and rest the arm on a pillow at your side or support the operative side with your other hand. You may allow the arm to dangle at your side. A physical therapy prescription will be sent electronically to begin in about 3 weeks. CONSERVATIVE protocol. Prescriptions: Naproxen 250 mg take 1-2 every 12 hours with a meal as needed for moderate pain Oxycodone 5 mg take 1-2 every 4-6 hours as needed for severe pain You may use pckp-nsr-naqwneq Tylenol (acetaminophen) as needed for mild pain. These pain medications may be taken all at once or in different combinations as needed. Also, recommend Colace (docusate) as a stool softener as surgery and pain medicine cause constipation. You may try pyji-jrf-vjsvwmq diphenhydramine (Benadryl) 25-50 mg nightly as a sleep aid Dressings: Remove shoulder bandage after 3 days. Leave the sticky Steri-Strips in place until they fall off or remove them after you shower. Cover the incisions with Band-Aids or leave them open to air. You may shower after 5 days. Follow-up: 10-[address] Zhao You may take off the leg compression stockings this evening at home. You may also leave them on a few days longer if you have a history of leg swelling or edema. Let us know right away if you develop any redness, drainage, fevers, chest pain, or trouble breathing. Do not drink alcohol or drive for at least 24 hours after anesthesia. Please call the office during business hours with any questions or concerns. Stand Alone Forms: Portal Information Discharge Orders Discharge Orders: Discharge Order (Routine); Ordered 05/09/25 Ordered By: Long Lundberg DS: Diagnosis Discharge Diagnosis (1) SLAP lesion of left shoulder: Status: Acute (2) Traumatic tear of left rotator cuff: Status: Acute
--- NOTE | 2025-05-09 07:30 | W.PM.OP ---
Operative Note Operative Note PRE-OP DIAGNOSIS: Left: 1. Large retracted rotator cuff tear 2. SLAP tear with LHB tendinopathy 3. Bursitis POST-OP DIAGNOSIS: same PROCEDURE: Left: 1. Rotator cuff repair, CPT# 86179. This involved repair of the supraspinatus using anchors and sutures to close the defect and reattach the rotator cuff back to the footprint of the greater tuberosity. 2. Arthroscopic biceps transposition tenodesis, CPT# 50325. This involved arthroscopically suturing and transposing long head of the biceps tendon toward the central greater tuberosity to act as a depressant and augment the repair in a setting high risk for superior migration/arthropathy. 3. Extensive debridement, CPT# 15542. This involved using arthroscopic hand instruments, power instruments, and radiofrequency instruments to debride areas of labral tearing, synovitis, and chondromalacia about the humeral head working throughout the glenohumeral joint anteriorly, superiorly and posteriorly largely access through the full-thickness rotator cuff tear. 4. Subacromial decompression with partial acromioplasty, CPT# 20663. This involved using arthroscopic power instruments and a radiofrequency wand to complete a bursectomy and smooth the undersurface of the acromion. The congressional assistant was medically required in order to help assist in techniques above, which require positioning the arm, holding the arthroscope, and manipulating multiple instruments and sutures at the same time. This cannot be done without the help of an experienced congressional assistant. SURGEON: Yonas Zhao LITHOGRAPHERS PRINTER: Long Lundberg ANESTHESIA TYPE: General LMA/ETT and Primary Nerve Block Refer to Anesthesia Record ESTIMATED BLOOD LOSS: 10 PATHOLOGY: none sent COMPLICATIONS: None Patient was transported to: PACU Patient's condition: stable Implants: Arthrex: 4.75mm SwiveLocks x 1 Indications: The patient was diagnosed with the above conditions and appropriately indicated for surgical intervention. Please see complete medical record for details. Findings: Exam under anesthesia: Full range of motion, no instability Glenohumeral joint: Moderate synovitis, moderate humeral head diffuse fibrillations chondromalacia, obvious full-thickness supraspinatus void, mild degenerative anterior and posterior labral tearing. Bulbous biceps anchor and mild injection, but no real unstable or degenerative biceps anchor or SLAP tear. Intact subscapularis. Subacromial space: Significant bursitis and abundant scarring adhesions about a chronic?appearing large supraspinatus rotator cuff tear. There was moderate lateral tendon remnant. The medial tendon was retracted and scarred. Procedure Description: In the operating room, general anesthesia was induced. Bilateral shoulders were examined. The patient was positioned in the beachchair position. All bony prominences were well-padded. Preoperative antibiotics were administered. The shoulder was prepped and draped in the usual sterile fashion. The correct patient, procedure, and side of the procedure were all verified prior to incision. Starting through the posterior portal a standard complete diagnostic arthroscopy was performed of the glenohumeral joint including inspection of the long head of the biceps, anterior and superior labrum, subscapularis tendon, supraspinatus and infraspinatus tendons, and axillary recess. The glenoid and humeral head cartilage as well as the posterior labrum were inspected from an anterior viewing portal. Significant findings and interventions noted above. Starting through the posterior portal, the arthroscope was directed into the subacromial space. A lateral 50 yard line lateral portal was created. A combination of power instruments and a radiofrequency ablator were used to debride bursitis anteriorly, posteriorly, and laterally as well as expose and smooth bone spurring on the undersurface of the acromion. The coracoacromial ligament was partially released. The bursectomy was completed viewing laterally and working from posteriorly and the rotator cuff was thoroughly inspected with findings noted above. Between the posterior portal and the subacromial portals working through the rotator cuff the debridement was completed. The biceps was then secured for transposition with the scorpion passing a suture tape FiberLink around and cinching the tendon and back through piercing it at the appropriate level at the somewhat central greater tuberosity after the greater tuberosity had been thoroughly prepared to optimize bone tendon healing removing fibrinous chronic soft tissue remnant. The transverse humerus or ligament was partially released to allow for excursion of the biceps more centrally/posteriorly. The large rotator cuff tear was thoroughly examined. There was mostly avoid centrally however there was more tissue remnant anteriorly and posteriorly and then anticipated. Some lateral remnant was removed to allow for repair to bone. The best repair configuration that could be done was a elob-bo-gzpi repair and then securing the eikk-gf-dumh repair to bone centrally over the greater tuberosity. Working through the various portals suture tape was used to secure nfoa-au-nhlw medially and centrally the repair with SMC arthroscopic knots. A fiber tape was then placed more centrally inverted through both sides of the tendon tear and the central repair site was localized and prepared with the punch. The SwiveLock suture anchor was then loaded with the biceps transposition tenodesis repair suture as well as the FiberTape supinators repair tails and secured centrally nicely moving the biceps more centrally as well as about completely closing and securing the repaired supraspinatus to the greater tuberosity. Consideration was done for additional repair through the anchor, but the repair defect was closed and there was not amenable to any more sutures. Although the repair did rather nicely close the defect and examined stable, remains high risk given the chronicity large size of the tear and the somewhat unusual necessary repair configuration. Will proceed cautiously/conservatively. If fails to heal well, and remains young and high demand, would consider superior capsular allograft reconstruction versus muscle transfer. The shoulder was drained of arthroscopic fluid. All portal sites were copiously irrigated. These incisions were closed using 3-0 Monocryl in a buried fashion and then covered with Mastisol, Steri-Strips, Xeroform, dry gauze, and ABDs. The dressings were covered and secured with Medipore tape. The operative extremity was placed into a sling for immobilization. The patient awoke from anesthesia without complication and was transferred to the recovery room in a stable condition. Date of Procedure: 05/09/25
[2025-05-09] MEDS: Lactated Ringers 1,000 ML 30 ML IV (11:15)
--- NOTE | 2025-05-09 11:19 | ANES.PREOP_ITS ---
General Info Date of Service Date Performed: 05/09/25 Height: 6 ft 1 in Weight: 123.8 kg Body Mass Index (BMI): 36.0 Surgical Procedure: Operation Date: 05/09/25 11:10 Proposed Procedure Side Surgeon p Shoulder Rotator Cuff Arthroscopic w/Extensive Debridement, Biceps Tenodesis, Subacromial Decompression Left Yonas Zhao MD Meds Allergies and Home Medications Allergies Allergy/AdvReac Type Severity Reaction Status Date / Time No Known Allergies Allergy Verified 05/09/25 10:21 Home Medication ?Medication ?Instructions ?Recorded empagliflozin 10 mg tablet 25 mg PO DAILY 05/13/21 (Jardiance) metformin 500 mg tablet 1,000 mg PO BID 05/13/21 spironolactone 25 mg tablet 25 mg PO DAILY 05/13/21 fenofibrate nanocrystallized 48 mg 48 mg PO DAILY 05/06 tablet allopurinol 300 mg tablet 300 mg PO DAILY 07/11/21 gabapentin 300 mg tablet 300 mg PO QHS 07/11/21 enalapril maleate 20 mg tablet 20 mg PO HS 02/09/22 celecoxib 200 mg capsule 200 mg PO DAILY PRN shoulder pain 01/23/25 #90 caps naproxen 250 mg tablet 250 - 500 mg (1 - 2 x 250 mg ) PO 05/09/25 BID PRN Moderate pain #40 tabs oxycodone 5 mg tablet 5 - 10 mg (1 - 2 x 5 mg) PO Q4H 05/09/25 PRN Moderate to severe pain #18 tabs Current Visit Medications: Current Medications Generic Name Dose Route Start Last Admin Trade Name Freq PRN Reason Stop Dose Admin Ringer's Solution 1,000 mls @ 30 mls/hr 05/09/25 06:00 IV 05/09/25 23:59 INFUSION CARL Cefazolin Sodium 3,000 mg/ 100 mls @ 200 mls/hr 05/09/25 06:00 Sodium Chloride IV 05/09/25 23:59 PREOP CARL Tranexamic Acid/Sodium Chloride 1,000 mg in 100 mls @ 600 mls/hr 05/09/25 06:00 IVPB 05/09/25 23:59 PREOP CARL Oxycodone HCl 0 mg 05/09/25 07:13 Oxycodone 5 Mg Tab PO 06/08/25 07:12 Q3H PRN PRN Pain Sodium Chloride 0 ml 05/09/25 06:00 Normal Saline Flush 10 Ml Syr IV 05/09/25 23:59 PRN PRN Sodium Chloride 0 ml 05/09/25 06:00 Normal Saline 10 Ml Vial IJ 05/09/25 23:59 DIRECTED PRN Sterile Water 0 ml 05/09/25 06:00 Water,Injection,Sterile 10 Ml Vial IJ 05/09/25 23:59 DIRECTED PRN PFSH Active Problems Active Problems: Problem Status Onset Code SLAP lesion of left shoulder Acute S43.432A Chondromalacia, right knee Acute M94.261 Foreign body of right wrist Acute S60.851A Traumatic tear of left rotator cuff Acute S46.012A Cardiomyopathy Acute I42.9 Gout Chronic M10.9 Diabetes mellitus Chronic E11.9 HTN (hypertension) Chronic I10 DVT prophylaxis Acute Z29.9 GERD (gastroesophageal reflux disease) Chronic K21.9 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 Acute I70.245 Diabetes mellitus type 2 in obese Acute E11.69, E66.9 Diabetic toe ulcer Acute E11.621, L97.509 Ulcer of right foot with fat layer exposed Acute L97.512 Cellulitis Acute L03.90 Medical History Medical History Diabetes mellitus with foot ulcer due to multiple causes Diabetic foot infection Obesity (BMI 30-39.9) Diabetic ulcer of foot associated with diabetes mellitus due to underlying condition, limited to breakdown of skin Surgical History Surgical History 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 Smith s/p I&D of left toe - Dr. Connelly on 12/02/2022 History of bunionectomy of left great toe Hx of circumcision 05/13/21 H/O adenoidectomy Tobacco Smoking/Tobacco Use Status: Former Tobacco Use Passive smoking exposure: No Alcohol Alcohol Intake: current Alcohol intake frequency: a few times a month Alcohol type: beer Substance Use Substance use: Never Substance use type: does not use Vital Signs and Lab Results Vital Signs Most Recent Vital Signs in EMR: Most Recent Vital Signs Temp Pulse Resp BP Pulse Ox 36.5 C 80 16 131/79 96 05/09/25 10:10 05/09/25 10:10 05/09/25 10:10 05/09/25 10:10 05/09/25 10:10 Point of Care Results Point of Care Results: Finger Stick Blood Glucose 169 05/09/25 11:03 Imaging and Studies Imaging and Studies Study information below may be from another EMR and interpreted by another provider. Please see original notes in EMR for more complete details. Echocardiogram Summary: 07/13/2018 at [facility] [place] SUMMARY: 1. Technically limited study. 2. The left ventricular chamber size is normal. Left ventricular wall thickness is normal. There is normal global left ventricular systolic function. The quantitative left ventricular ejection fraction by biplane Stuart's method is 61%. There are no left ventricular segmental wall motion abnormalities. Doppler assessment is consistent with normal left sided filling pressure. 3. Right ventricular chamber size, wall thickness, and systolic function are within normal limits. Pulmonary artery hypertension could not be assessed due to inadequate tricuspid regurgitation jet. 4. The left atrium is normal in size. The right atrium appears normal. 5. There is no hemodynamically significant valve disease. 6. See remainder of report for additional findings. Anesthesia Assessment and Plan Anesthesia History Personal History: No History of Anesthesia Complications Family History: No Family History of Anesthesia Complications Exercise Tolerance Exercise Tolerance: Metabolic Equivalents>4 Pertinent Negatives Pertinent Negatives: No Symptoms of GERD, No Major Cardiovascular Symptoms or Complaints and No Major Pulmonary Symptoms or Complaints Cardiac & Pulmonary Exam Cardiac Exam: Normal S1/S2 Heart Sounds Pulmonary Exam: Clear Bilateral Breath Sounds Implantable Cardiac Device Does patient have a Pacemaker or an ICD?: No Airway Exam Known Difficult Airway: No Mallampati Class: 2 Mouth Opening: Normal (> 3cm) Thyromental Distance: Greater than 3 cm Neck Range of Motion: Full ROM Neck Circumference: Normal Teeth Condition: Generalized Poor Dentition and Loose or Chipped ASA Classification ASA Score: ASA 2 Emergency Case?: No NPO Status NPO Status: NPO Clears >2 hours, Solids >8 hours Anesthesia Plan Resuscitation Status: Full Code Anesthesia Technique: General Anesthesia Airway Planned: Endotracheal Tube Pain Management: Surgeon and patient request nerve block Monitors Used: Standard Monitors and SedLine
[2025-05-09] MEDS: ceFAZolin 3,000 MG in Normal Saline 100 ML 200 MG IV (12:35)
[2025-05-09] MEDS: TRANEXAMIC ACID/SOD. CHL. 1,000 MG/100 ML BAG 600 MG IVPB (12:44)
[2025-05-09] MEDS: EPINEPHrine 10 MG/10 ML ML (13:13)
[2025-05-09] MEDS: Bupivacaine 0.25% Pres-Free W/EPI 30 ML VIAL (13:13)
--- NOTE | 2025-05-09 13:55 | W.ANESNERVE ---
Nerve Block Single Injection Procedure Date and Time Date Performed: 05/09/25 Procedure Start: 11:50 Location Where Procedure Performed Procedure Location: Day Surgery Unit Reason Performed: Postoperative Analgesia Requesting Provider: Yonas Zhao Timeout Performed Timeout Performed: Yes Monitoring Used ECG, Blood Pressure, SpO2 and See EMR for corresponding vital signs Sterility Sterility: Hand Hygiene, Surgical Cap, Surgical Mask, Sterile Gloves and Chlorhexidine Sedation Given During Procedure Sedation Given (Indicate Dose Given): Versed IV Dose:: 2mg Patient Mental Status Patient Mental Status: Sedate with meaningful communication Nerve Block 1st Nerve Block: Laterality: Left Block Type: Interscalene Ultrasound Image Saved?: Yes Needle / Catheter Used: 80mm SonoPlex II Local Anesthetic Bolus (Indicate Dose Given): Lidocaine used for local infiltration of skin, Injected in 3-5ml increments after negative blood aspiration, Bupivacaine 0.5% Dose:: 10mL and Exparel Dose:: 10mL Additives (Indicate Dose Given): None Ultrasound: Sterile probe cover and gel used Nerve Stimulator: Supplement to Ultrasound use Paresthesia: Left (Noted motor response of trap muscle, needle withdrawn, new local site administered, similar response with patient reported discomfort. Decision to reposition patient and LA to additional site, no twitch or parastehsia noted <0.5mA) Paresthesia Duration: Transient Procedure Tolerated: No Complications and Patient tolerated well Procedure Outcome: Successful Performed By: Annmarie Tinoco
[2025-05-09] MEDS: oxyCODONE 5 MG TAB PO (15:31)
--- NOTE | 2025-05-09 15:32 | W.ANESPOSTOP ---
Postoperative Evaluation Date, Time and Location Date Performed: 05/09/25 Time Performed: 15:32 Patient Location: Day Surgery Unit Vital Signs Most Recent Imported Vital Signs: Most Recent Vital Signs Temp Pulse Resp BP Pulse Ox 36.5 C 88 17 131/66 95 05/09/25 15:05 05/09/25 15:11 05/09/25 15:11 05/09/25 15:10 05/09/25 15:11 Pain Score Most Recent Pain Score: Most Recent Pain Score Pain Level 4 05/09/25 15:05 Assessment Mental Status: Awake (Alert & Oriented to Patient Baseline) Airway and Respiratory Function: Patent airway with normal (patient baseline) respiratory exam Cardiovascular Function: Hemodynamically Stable Hydration Status: Adequately Hydrated Nausea & Vomiting: No Nausea or Vomiting Pain: Pain is Moderate or Severe Postoperative Pain Management: Pain being addressed with medication Peripheral Nerve Block: Regional nerve block not resolved at time of post operative discharge Postoperative Comments:: Patient reports partial coverage from block, discussed rate of block failure. Discomfort will be addressed with oral medication. Patient has no further questions at this time.
== END 2025-05-09 16:37 | disposition home or self-care (01) ==
LOC: SUR 09:50
PROVIDERS: PCP Internal Medicine; Visit Provider Student in an Organized Health Care Education/Training Program
PROC: (CPT 29827; principal; 2025-05-09 11:00)
DX: S43.432A Superior glenoid labrum lesion of left shoulder, initial encounter (principal); S46.012A Strain of muscle(s) and tendon(s) of the rotator cuff of left shoulder, initial encounter; X58.XXXA Exposure to other specified factors, initial encounter; G89.18 Other acute postprocedural pain
CPT/HCPCS: 29827; 29828; 29823; 29826; 64415; J0131; J0665; J0666; J0690; J1100; J1805; J1885; J2003; J2250; J2371; J2405; J2704